=== PATIENT | male | born 1940 | race Caucasian/White ===

== ENCOUNTER → 2018-08-20 09:42 | Outpatient (CLI) | payer MEDICARE, SELFPAY ==
[2018-08-20 09:03] VITALS: BMI 34.4
[2018-08-20 11:55] LABS: AST(SGOT) 16 U/L (15-37); Alanine Aminotransfer ALT/SGPT 36 U/L (16-61); Albumin, Serum 3.4 g/dL (3.2-5.0); Alkaline Phosphatase 128 U/L (45-117); Bilirubin, Direct 0.15 mg/dL (0.00-0.30); Cholesterol 112 mg/dL (200); Globulin 3.5 g/dL (2.2-4.2); High Density Lipoprotein 33 mg/dL; Protein, Total 6.9 g/dL (6.4-8.2); T4 Total, Thyroxin 10.2 ug/dL (4.5-12.1); Thyroid Stim Hormone (TSH) 1.88 uIU/mL (0.358-3.74); Triglycerides 68 mg/dL; Very Low Density Lipoprotein 14 mg/dL (5-40)
== END ==
PROVIDERS: Family Provider Family Medicine; PCP Family Medicine; Referring Provider Internal Medicine Cardiovascular Disease; Visit Provider Internal Medicine Cardiovascular Disease
DX: E78.5 Hyperlipidemia, unspecified (principal); Z79.899 Other long term (current) drug therapy
CPT/HCPCS: 36415; 80061; 80076; 84436; 84443

== ENCOUNTER → 2018-08-27 06:37 | Outpatient (CLI) | payer MEDICARE, SELFPAY ==
[2018-08-20 09:03] VITALS: BMI 34.4
--- NOTE | 2018-08-27 13:35 | PFT ---
INTRODUCTION: The patient is a 77-year-old male that presents for pulmonary function testing secondary to a diagnosis of respiratory disease. Respiratory therapy reports good patient effort. Bronchodilators were used during testing. INTERPRETATION: Forced expiration spirometry demonstrates no evidence of a large airways obstructive ventilatory defect. There was no significant response to aerosolized bronchodilators. Spirograms are of good quality and do not plateau indicating slow emptying of the lungs. Body plethysmography was performed and reveals a mildly increased RV of unclear significance. The remainder of the lung volumes are within normal limits. Diffusing capacity by single breath CO is within normal limits. IMPRESSION: Grossly normal pulmonary function testing. There are no previous PFTs available for comparison.
--- OUTSIDE RECORDS SUMMARY | 2018-10-20 04:45 | XMS RPT_ITS ---
:1940 Author Organization OHIP Care Team Providers Name Role Phone Ji Mancilla D.O. Attending Unavailable Bud Voss Referring Unavailable Bud Voss Attending Unavailable Gomez Nelson Referring Unavailable Bud Voss Attending Unavailable Gomez Nelson Referring Unavailable Bud Voss Attending Unavailable Bud Voss Referring Unavailable Gomez Nelson Primary Care Unavailable Bud Voss Attending Unavailable Bud Voss Referring Unavailable Gomez Nelson Primary Care Unavailable PROBLEMS PROBLEMS DATE TYPE CONDITION / CODE ATTENDING STATUS SOURCE 08/20/2018 Unknown Z79.899 - Other long Bud Voss Active [facility] term (current) drug Community therapy / Hospital Z79.899(ICD-10) Repository 08/20/2018 Unknown E78.5 - Bud Voss Active [facility] Hyperlipidemia, Community unspecified / Hospital E78.5(ICD-10) Repository 08/20/2018 Unknown Z87.09 - Personal Bud Voss Active [facility] history of other Community diseases of the Hospital respiratory system / Repository Z87.09(ICD-10) 08/20/2018 Unknown I25.10 - Bud Voss Active [facility] Atherosclerotic heart Community disease of [facility] coronary artery Repository without angina pectoris / I25.10(ICD-10) 08/20/2018 Unknown I48.2 - Chronic Bud Voss Active [facility] atrial fibrillation / Community I48.2(ICD-10) Hospital Repository PROCEDURES PROCEDURES No Procedure Records FoundRESULTS RESULTS PULMONARY FUNCTION Observed: 08/27/2018 Status: F Source: ENCINO TEST 1:37 PM [facility] REPOSITORY [facility] Pulmonary Services/Neurology [address] [place] [address] MR#: [id number] Acct: [id number] Name: TALI SINGH Rep #: [id number] : 1940 77 From: Ji Mancilla DO Referring Dr: Bud Voss MD Status: REG CLI Ordering Dr: Date: Location: [facility] Sex: M C INTRODUCTION: The patient is a 77-year-old male that presents for pulmonary function testing secondary to a diagnosis of respiratory disease. Respiratory therapy reports good patient effort. Bronchodilators were used during testing. INTERPRETATION: Forced expiration spirometry demonstrates no evidence of a large airways obstructive ventilatory defect. There was no significant response to aerosolized bronchodilators. Spirograms are of good quality and do not plateau indicating slow emptying of the lungs. Body plethysmography was performed and reveals a mildly increased RV of unclear significance. The remainder of the lung volumes are within normal limits. Diffusing capacity by single breath CO is within normal limits. IMPRESSION: Grossly normal pulmonary function testing. There are no previous PFTs available for comparison. 08/27/181336 <Electronically signed by Ji Mancilla DO> Date Ji Mancilla DO CC: Bud Voss MD; Gomez Nelson DO Date Dictated: 08/27/181334 Date Transcribed: 12/03/18 1335 Boot Turner: CLAUDIA Signed LIVER PROFILE Collected: 08/20/2018 Status: F Source: ENCINO 9:47 AM [facility] REPOSITORY TYPE CODE TESTS RESULT OUT OF RANGE REFERENCE UNITS LAB L501.1500 6.4-8.2 g/dL Normal T PROT 6.9 LAB L501.1800 3.2-5.0 g/dL Normal ALB 3.4 LAB L501.1950 2.2-4.2 g/dL Normal GLOB 3.5 LAB L501.4100 15-37 U/L Normal AST 16 LAB L501.4305 45-117 U/L High ALK P 128 LAB L501.4405 16-61 U/L Normal ALT 36 LAB L501.4600 0.20-1.00 mg/dL Normal T BILI 0.50 LAB L501.4700 0.00-0.30 mg/dL Normal D BILI 0.15 Performed By: #### L500.3400, L500.4100, L501.9310, L501.9520 #### [facility] [address] [place], [address] LIPID PROFILE Collected: 08/20/2018 Status: F Source: ENCINO 9:47 AM [facility] REPOSITORY TYPE CODE TESTS RESULT OUT OF RANGE REFERENCE UNITS LAB L501.4900 200 mg/dL Normal CHOL 112 Result Comment: <200 mg/dL Desirable 200-240 mg/dL Borderline >240 mg/dL High Risk LAB L501.5000 mg/dL Normal TRIG 68 Result Comment: The drugs N-Acetylcysteine and Metamizole may falsely depress this assay. Serum Triglycerides Reference Interval Normal <150 mg/dL Borderline high 150 - 199 mg/dL High 200 - 499 mg/dL Very High > or = 500 mg/dL LAB L501.6400 mg/dL Low HDL 33 Result Comment: The drugs N-Acetylcysteine and Metamizole may falsely depress this assay. Reference Range HDL <40 mg/dL Low HDL Cholesterol HDL >or= 60 mg/dL High HDL Cholesterol LAB L501.6500 0-130 mg/dL Normal LDL 65 LAB L501.6600 5-40 mg/dL Normal VLDL 14 Performed By: #### L500.3400, L500.4100, L501.9310, L501.9520 #### [facility] [address] [place], [address] T4 TOTAL, THYROXIN Collected: 08/20/2018 Status: F Source: MARIA R 9:47 AM [facility] REPOSITORY TYPE CODE TESTS RESULT OUT OF RANGE REFERENCE UNITS LAB L501.9310 4.5-12.1 ug/dL T4 Normal THYROXIN 10.2 Performed By: #### L500.3400, L500.4100, L501.9310, L501.9520 #### [facility] [address] [place], [address] THYROID STIM HORMONE Collected: 08/20/2018 Status: F Source: MARIA R (TSH) 9:47 AM [facility] REPOSITORY TYPE CODE TESTS RESULT OUT OF RANGE REFERENCE UNITS LAB L501.9520 0.358-3.74 uIU/mL Normal TSH 1.88 Performed By: #### L500.3400, L500.4100, L501.9310, L501.9520 #### [facility] [address] [place], [address] CARDIOLOGY VISIT Observed: 08/20/2018 Status: F Source: AMRIA R REPORT 9:24 AM [facility] REPOSITORY [facility] [address] [place] [address] OFFICE VISIT Date of Service: 08/20/18 MR#: [id number] Acct: [id number] Name: TALI SINGH Rep #: [id number] : 1940 Provider: Bud Voss MD Age/Sex: 77/M Location: [facility] Status: Signed HPI HPI Chief Complaint: Routine f/u Details: Referring physician: Dr. Nelson Mr. 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 According to the patient had an echocardiogram at that time however do not have those results in front of us. The patient recently saw Dr. Nelson is a new patient any physical exam revealed a loud murmur precipitating an echocardiogram which was performed in March 2016. This demonstrated normal LV function with an EF of 65%, left ventricular hypertrophy, severe aortic stenosis with a peak/mean gradient of 83/52 mmHg, and TIFFANY estimated to be 0.78 cm , and an RVSP of 27 mmHg. He was then referred for evaluation. From a cardiac standpoint he reports these had a gradual decline in his exercise capacity over the last 6 months now only able to walk about 1/8 of a mile before he has to s Complains of dyspnea on exertion, shortness of breath, and exertional anginal symptoms. He has had no palpitations, lightheadedness, dizziness, presyncope or syncope He reports that he has been compliant with his medications and had a 30 pound weight loss when he was diagnosed with prediabetes. Patient underwent successful single-vessel bypass surgery with a saphenous vein graft to the PDA as well as a bioprosthetic aortic valve replacement with a #25 mm Saeed Solo pericardial tissue valve by Dr. Baxter on 07/21/16. Patient was then sent home and returned 5 days later with severe bilateral pleural effusions and shortness of breath. He then underwent bilateral thoracentesis and stayed an additional [address] [facility]. Since his discharge, he's been doing fairly well. He had a repeat echocardiogram on 08/25/16 which showed an EF of 60-65%, mild to moderate concentric LVH, moderate biatrial enlargement, small hemodynamically insignificant pericardial effusion and a normal functioning by prostatic aortic valve. Patient is now here in follow-up. He was found to be in atrial fibrillation with controlled ventricular response and has been treated with amiodarone and beta blockers. Patient underwent successful DC cardioversion on 10/27/16. This was with amiodarone assistance. Patient is not participating cardiac rehab due to cost and feeling that he does not require it. Patient stopped his xarelto due to cost issues, and recently had episodes of vertigo-like symptoms. He denies any anginal symptoms. He reports the shortness of breath this markedly improved since her last visit. He denies any orthopnea or PND. Patient does exercise by doing a lot a walking at work, and cuts his grass without difficulty. Patient had moved away temporarily but now is back in town, and wishes to reestablish care. He denies any chest pain, angina, shortness of breath or dyspnea on exertion. He denies any palpitations, or reversion to atrial fibrillation. He denies any presyncope or syncope, fevers or chills. In our office today his blood pressure is 130/60 with a pulse is 72 and irregular.He has no edema. Lipids as of 03/17/16 showed LDL 107 and HDL of 50. Lipids as of 09/30/16 showed LDL of 91 and HDL of 47. Repeat EKG today shows normal sinus rhythm, first-degree AV block, QT corrected of 403 ms. Repeat lipids, thyroid studies, and PFTs are pending Intake Vital Signs08/20/18 Height 5 ft 8 in 08/20/18 Weight: 227 lb 08/20/18 Body Mass Index (BMI) 34.4 08/20/18 Blood Pressure 130/60 H H Intake Visit Reasons: F/U, LAST SAW 04/2017 Allergies No Known Allergies Allergy (Verified 08/14/18 18:07) Medications Aspirin [Aspirin, Baby] 81 mg PO DAILY@0800 08/01/16 [History Confirmed 08/20/18] Rivaroxaban [Xarelto] 20 mg PO DAILY 11/15/16 [History Confirmed 08/20/18] Tamsulosin HCl [Flomax] 0.4 mg PO DAILY 11/15/16 [History Confirmed 08/20/18] furosemide 40 mg tablet 40 mg PO DAILY #90 tab 10/04/17 [Rx Confirmed 08/20/18] metoprolol tartrate 50 mg tablet 50 mg PO BID #180 tab 10/04/17 [Rx Confirmed 08/20/18] atorvastatin 80 mg tablet 80 mg PO QDAY #90 tab 11/13/17 [Rx Confirmed 08/20/18] amiodarone 200 mg tablet 200 mg PO DAILY tab 08/14/18 [History Confirmed 08/20/18] amoxicillin 500 mg tablet 500 mg PO .COMPLEX 08/14/18 [History Confirmed 08/20/18] levothyroxine 150 mcg tablet 150 mcg PO DAILY 08/14/18 [History Confirmed 08/20/18] linagliptin 5 mg tablet 5 mg PO DAILY 08/14/18 [History Confirmed 08/20/18] [facility] Medical History History of pleural effusion (Chronic) Atrial fibrillation, chronic (Chronic) Diabetes mellitus, type II (Chronic) Chronic kidney disease, stage 3 (Chronic) Hyperlipidemia (Chronic) Hypertension (Chronic) Nonrheumatic mitral valve regurgitation (Chronic) 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) History of aortic stenosis (Chronic) Surgical History History of thoracentesis (Chronic 08/02/16) History of right and left heart catheterization (LHC) (Chronic 05/18/16) History of cardioversion (Chronic 11/16/16) History of mitral valve repair (Chronic 07/14/16) 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) History of aortic valve replacement with bioprosthetic valve (Chronic 07/14/16) History of neck surgery (Chronic) Family History Brother Colon cancer Social History Smoking Status: Never smoker ROS Const Const: Positive for other (Feels well); negative for fatigue, weakness, body ache, fever(s), headache(s), chills, frequent falls, night sweats, daytime sleepiness, difficulty sleeping, excessive sweating, weight gain, weight loss, increased appetite, poor appetite or anorexia Eyes Eyes: Negative for blind spots, loss of peripheral vision, transient loss of vision, blurry vision, change in vision, double vision, floaters, tunnel vision or other ENT ENT: Negative for headache(s), dizziness, hearing loss, tinnitus, Nosebleed/epistaxis, balance problems, post nasal drip, lip swelling, tongue swelling, bleeding gums, hoarseness, neck pain, dry mouth or other Cardio Chest Pain: No Palpitations: No Edema: Right (Mild pitting) Muscle aches with walking: None Resp Respiratory: Negative for SOB with activity, SOB at rest, SOB orthopnea\SOB lying down, Cough, Coughing up blood/hemoptysis, chest congestion, pain on inspiration, snoring, stridor, wheezing, crackles, paroxysmal nocturnal dyspnea or other GI GI: Negative nausea, vomiting, heartburn, constipation, belching, bloating, cramping, vomiting blood/hematemesis, bright, red blood in stools, black,tarry stools, loose stools, Difficulty Swallowing or other : Negative for hematuria, frequent nighttime urination/ nocturia, erectile dysfunction or abnormal vaginal bleeding Musc Musc: Negative for balance problems, muscle aches/ myalgia, muscle weakness or joint pain Skin Skin: Negative redness, non-healing lesions, rash, unusual bruising, skin ulcer, wounds, jaundice or other Neuro Neuro: Negative for weakness, headache(s), frequent falls, blurry vision, double vision, dizziness, lightheadedness, near syncope, syncope, orthostatic symptoms, confusion, memory loss, restless legs, vertigo, seizures, lack of coordination or other Josue Hematologic/Lymphatic: Negative for easy bleeding, easy bruising, enlarged lymph nodes or other Endo Endo: Negative for fatigue, excessive sweating, cold intolerance, heat intolerance, flushing, increased thirst/drinking, increased hunger, hair loss, hair growth or other Psych Psych: Negative for anxiety, depression, thoughts of harming anyone, thoughts of harming yourself, visual hallucinations, panic attacks or audible hallucinations Allergy Allergy/Immunology: Negative for lip swelling, Negative for tongue swelling, Negative for rash, Negative for throat swelling, Negative for hives Cardiology Exam Const Appearance: cooperative, healthy appearing and no acute distress Nutritional Appearance: well nourished Orientation: alert, oriented x3 and oriented to person Head Head: normal to inspection, atraumatic and normocephalic Nose: external nose normal Face and Sinus: face symmetric Mouth: oral mucosae normal Eyes General: appearance normal, both eyes and all related structures Eyelids: eyelids normal Conjunctivae: conjunctivae normal Pupils: PERRL and normal by confrontation EOM: EOM intact bilaterally Neck Neck: normal visual inspection and full ROM Carotids: normal carotid upstroke Chest Chest inspection: normal inspection of the chest Auscultation: Bilateral: Clear to Auscultation Cardio Palpation: normal PMI Rate: regular rate Rhythm: regular rhythm Heart sounds: S1 normal and S2 normal GI GI: normal to inspection, no hepatosplenomegaly and bowel sounds present Neuro General: alert, oriented x3, awake, CN's II-XI intact bilaterally and moves all extremities Skin Skin: no rashes or lesions noted Extremities Pulses: Normal: Right Femoral Pulse, Left Femoral Pulse, Right Dorsalis Pedis Pulse, Left Dorsalis Pedis Pulse, Right Posterior Tibial Pulse, Left Posterior Tibial Pulse, Right Radial Pulse, Left Radial Pulse Lower Extremity Edema: None: Bilateral Psych Psychological: normal affect Assessment AND Plan 1. Atherosclerotic heart disease of cheesh-na coronary artery without angina pectoris I25.10 CABG X 1 with reverse SVG to PDA per Dr. Mcarthur @ [place], concurrently with AVR procedure Plan 1. Coronary artery disease: No exertional anginal symptoms at this time. No indication for any additional testing. His repeat echocardiogram post aVR showed a well-functioning AVR area and he has had no symptoms whatsoever since her last visit. His blood pressure and heart rate are well-controlled. I recommend the patient continue his baby aspirin, Lasix, metoprolol. 2. Hyperlipidemia E78.5 Plan 2. Hyperlipidemia: His most recent lipid profile was under fairly good control however his LDL was 91. Patient continues on his Lipitor. We will repeat his lipid profile. My preference would be for his LDL to be less than 70 or at least 50% reduced over its baseline. Orders Orders: 3. Atrial fibrillation, chronic I48.2 Plan 3. Atrial fibrillation: The patient underwent successful amiodarone assisted DC cardioversion in 2017 and has remained on amiodarone and Xarelto since that time. He denies any palpitations. EKG today demonstrates normal sinus rhythm with appropriate QT corrected interval for his amiodarone. Recommend he continue his amiodarone, Xarelto, and that we repeat his thyroid function studies. In addition he will undergo liver function studies and pulmonary function test as a baseline. If his DLCO is markedly reduced, we will discontinue his amiodarone and continue beta-ap therapy along with Xarelto. 4. Return office in 6 months. This note was generated using a voice recognition system and there may be incorrect words, spelling or punctuation that were not noted when reviewing the office note prior to saving. Plan Detail Other Orders Orders: Follow Up +6M (Bipin) Coding Level of Care Code Off vis,est,level 3 Diagnoses Atherosclerotic heart disease of cheesh-na coronary artery without angina pectoris I25.10 Hyperlipidemia E78.5 Atrial fibrillation, chronic I48.2 Coding Level of Care Code Off vis,est,level 3 Diagnoses Atherosclerotic heart disease of cheesh-na coronary artery without angina pectoris I25.10 Hyperlipidemia E78.5 Atrial fibrillation, chronic I48.2 08/20/18 0924 <Electronically signed by Bud Voss MD> Date Bud Ma Signature: Date (if applicable) CC: Gomez Nelson DO 12 LEAD EKG PERFORMED Observed: 08/20/2018 Status: F Source: MARIA R BY [facility] 8:59 AM [facility] REPOSITORY [facility] [address] [place] [address] 12 Lead EKG performed by [facility] 08/20/18857 MR#: [id number] Acct: [id number] Name: TALI SINGH Rep #: [id number] : 1940 77 From: Bud Voss MD Attending Dr: Bud Voss MD Status: DEP AMB Ordering Dr: Bud Voss MD Date: 08/20/18 Location: [facility] [place] Sex: M C Admitted: [facility]/12 Lead EKG performed by [facility] ECG Report Interpretation Sinus Rhythm -First degree A-V block Mimi = 262BORDERLINE RHYTHMElectronically signed on 09/07/2018 at 15:26 by Bud Voss Software Version [id number] 09/07/18 1531 Date Bud Voss MD CC: Gomez Nelson DO Date Dictated: 08/20/18857 Date Transcribed: 08/20/18857 Boot Turner: Signed ALLERGIES ALLERGIES DATE TYPE / CODE NAME / CODE REACTION SEVERITY SOURCE 08/14/2018 [address] No Known [address] [facility] Allergy/4160 Allergies/F00 Hospital 01097(SNOMED 7733123(RXNOR Repository CT) M) ENCOUNTERS ENCOUNTERS ADMIT/DISCHARGE ACCOUNT ADMITTING ENCOUNTER LOCATION SOURCE NUMBER CLASS 08/27/2018 [id number] Ambulatory BMSBuilding:[facility] [place] [facility] Repository 08/27/2018 [id number] Ambulatory [place] [facility] ing:PSN Repository 08/20/2018 [id number] Ambulatory [facility] [place] 9 [facility] ing:LAB Repository 08/20/2018/ [id number] Ambulatory BMSBuilding:[facility] [place] [facility] [address] [facility] Repository 11/20/2017 [id number] Ambulatory BMSBuilding:B [facility] [address] [facility] Repository PAYERS PAYERS ENCOUNTER GUARANTOR PAYER SUBSCRIBER SOURCE 08/27/2018 TALI Sandoval Primary TALI [id number] Insurance:LANCE JOHNSONDOB: [facility] [id number] Number: Repository [id number]: 330 [id number] [phone] () e Date:8271-12-05FT [address] [address]RF: 08/27/2018 Secondary NOT GIVENUNK [place] Insurance:SELF PAY [facility] Number: Effective Repository Date:2018-08-27 08/27/2018 TALI Sandoval Primary TALI SINGH486 Insurance:LANCE JOHNSONDOB: [facility] [id number] Health Number: Repository [id number]: 330 [id number] [phone] () e Date:7629-28-17EN [address] [address]MJ: 08/27/2018 Secondary NOT GIVENUNK Maria R Insurance:SELF PAY [facility] Number: Effective Repository Date:2018-08-20 08/20/2018 TALI Sandoval Primary TALI SINGH486 Insurance:LANCE JOHNSONDOB: [facility] [id number] Shore Health Number: Repository [id number]: 330 [id number] [phone] () e Date:4920-28-70[address] [address]FS: 08/20/2018 Secondary NOT GIVENUNK [place] Insurance:SELF PAY [facility] Number: Effective Repository Date:2018-08-20 08/20/2018 TALI Sandoval Primary TALI SINGH486 Insurance:LANCE SAMANTHADOB: [facility] [id number] Shore Health Number: Repository [id number]: ([phone] [id number] [phone] () e Date:9582-60-65HQ [facility] [place] [address]LM: 08/20/2018 Secondary NOT GIVENUNK [place] Insurance:SELF PAY [facility] Number: Effective Repository Date:2018-08-20 11/20/2017 Tali Sandoval Primary Tali Singh486 Insurance:LANCE JohnsonDOB: [facility] [id number] Number: Repository [id number]: 330 [id number] [phone] () e Date:0202-73-34GJ [address], [place] [address]BG: 11/20/2017 Secondary NOT GIVENUNK Maria R Insurance:SELF PAY [facility] Number: Effective Repository Date:2017-08-31
== END ==
PROVIDERS: Family Provider Family Medicine; PCP Family Medicine; Referring Provider Internal Medicine Cardiovascular Disease; Visit Provider Internal Medicine Cardiovascular Disease
DX: Z87.09 Personal history of other diseases of the respiratory system (principal); Z79.899 Other long term (current) drug therapy
CPT/HCPCS: 94060; 94726; 94729

== ENCOUNTER → 2019-03-23 09:47 | Outpatient (CLI) | payer MEDICARE, SELFPAY ==
[2018-08-20 09:03] VITALS: BMI 34.4
--- NOTE | 2019-03-23 10:05 | RAD_ITS ---
STUDY: X-RAY - LEFT KNEE REASON FOR EXAM: Male, 78 years old. Left knee pain. TECHNIQUE: 4 view(s) of the knee. COMPARISON: None. FINDINGS: Normal visualized distal femur. Normal visualized proximal tibia and fibula. Normal proximal tibiofibular articulation. There is moderate degenerative arthrosis of the medial femorotibial compartment with moderate joint space narrowing. Normal lateral femorotibial compartment. There is mild degenerative arthrosis of the patellofemoral articulation. Small joint effusion. RAD/Knee 4 or More Views IMPRESSION: Degenerative arthrosis. Small joint effusion. Electronically Signed: Fidencio Ochoa, at 10:25 EDT , Service support ,
== END ==
PROVIDERS: Family Provider Family Medicine; PCP Family Medicine; Referring Provider Family Medicine; Visit Provider Family Medicine
DX: M25.562 Pain in left knee (principal)
CPT/HCPCS: 73564

== ENCOUNTER 2021-05-11 06:52 | Day surgery (SDC) | payer MEDICARE, SELFPAY ==
[2021-04-27 14:31] VITALS: BMI 30.4
[2021-05-11] VITALS (7 sets, daily range): BP systolic 109–127; BP diastolic 46–64; PULSE 54–77; RESP 16; TEMP 36.2–36.4; O2SAT 98–100; BMI 28.7
--- NOTE | 2021-05-11 | COLBX_PTH ---
PATIENT: KYLER SINGH LOC: EN U#:[id number] AGE/SX: 80/M ROOM: RE05/11/[address]: Dr. Emigdio Trejo MD : 1940 BED: DIS: 05/11/2021 SPEC #: [id number] RECD: 05/11/21 12:01 STATUS: CORTNEY DAVID #: [id number] AALIYAH: 05/11/21 00:[address]: Emigdio Trejo DEPT: SURGICAL PATHOLOGY RECD BY: Sharif Perez ENTERED: 05/11/21 12:05 SP TYPE: COLON BX OTHR DR: Dr. Gomez Nelson DO Tissues: A - Cecum, NOS B - COLON BIOPSY C - COLON BIOPSY D - Transverse colon E - COLON BIOPSY F - Transverse colon G - Transverse colon H - Rectum, NOS Procedures: Surgery Specimen Level IV HEADER OPERATION: Colonoscopy (MAC) PRE-OP DIAGNOSIS: Screening for intestinal cancer TISSUE SUBMITTED: A - Cecum polyp 4 mm ablated, B - Biopsy of 15 mm sessile polyp and snare, C - Biopsy of hepatic flexure polyp, D - Proximal transverse polyp, E - Hepatic flexure polyp, F - Mid transverse polyp, G - Distal transverse polyp, H - Rectum polyp MICROSCOPIC DIAGNOSIS A. Cecum polyp, biopsy: Tubular adenoma. B. 15 mm sessile polyp, biopsy and snare: Fragments of tubulovillous adenoma. See comment. C. Hepatic flexure polyp, biopsy: Fragments of colonic mucosa, no pathologic diagnosis. D. Proximal transverse colon polyp, biopsy: Fragments of tubular adenoma. See comment. E. Hepatic flexure polyp, biopsy: Tubular adenoma. F. Mid transverse colon polyp, biopsy: Fragments of tubulovillous adenoma. See comment. G. Distal transverse colon polyp, biopsy: Fragments of tubular adenoma. See comment. H. Rectum polyp, biopsy: Fragments of tubular adenoma. See comment. SJ:rg 05/12/2021 COMMENT B, D, F, G & H ? Fragments of fecal material are also noted. MICROSCOPIC DESCRIPTION Slides are reviewed. GROSS DESCRIPTION A - Received in fixative is one container labeled with the patient's name and designated cecum polyp. The specimen consists of one irregular fragment of light garza soft tissue that measures 0.1 x <0.1 x <0.1 cm. The specimen is totally submitted in one cassette. B - Received in fixative is one container labeled with the patient's name and designated sessile polyp. The specimen consists of multiple irregular fragments of light garza soft tissue that in aggregate measure 1.5 x 0.6 x 0.1 cm. The specimen is totally submitted in one cassette. C - Received in fixative is one container labeled with the patient's name and designated hepatic flexure. The specimen consists of two irregular fragments of light garza soft tissue that in aggregate measure 0.6 x 0.5 x <0.1 cm. The specimen is totally submitted in one cassette. D - Received in fixative is one container labeled with the patient's name and designated proximal transverse polyp. The specimen consists of multiple irregular fragments of light garza soft tissue that in aggregate measure 1 x 0.3 x <0.1 cm. The specimen is totally submitted in one cassette. E - Received in fixative is one container labeled with the patient's name and designated hepatic flexure polyp. The specimen consists of one irregular fragment of light garza soft tissue that measures 0.2 x 0.2 x 0.1 cm. The specimen is totally submitted in one cassette. F - Received in fixative is one container labeled with the patient's name and designated mid transverse polyp. The specimen consists of multiple irregular fragments of light garza soft tissue that in aggregate measure 2 x 1 x 0.1 cm. The specimen is totally submitted in one cassette. G - Received in fixative is one container labeled with the patient's name and designated distal transverse polyp. The specimen consists of multiple irregular fragments of light garza soft tissue that in aggregate measure 1.5 x 0.5 x 0.1 cm. The specimen is totally submitted in one cassette. H - Received in fixative is one container labeled with the patient's name and designated rectal polyp. The specimen consists of multiple irregular fragments of light garza soft tissue that in aggregate measure 0.7 x 0.5 x 0.1 cm. The specimen is totally submitted in one cassette. / AM:rg 05/11/21 TC:1 CPT: 85235 x8
--- NOTE | 2021-05-11 07:02 | HP.PCM_ITS ---
History and Physical Date of Admission: 05/11/21 I have re-examined the patient. There are no clinical changes since date of exam.Intake Visit Reasons: C-Scope family hx cancer Chief Complaint: Routine f/u Allergies No Known Allergies Allergy (Verified 04/27/21 14:34) Medications tamsulosin 0.4 mg PO DAILY 11/15/16 [History Confirmed 08/20/18] furosemide 40 mg tablet 40 mg PO DAILY #90 tab 10/04/17 [Rx Confirmed 04/27/21] levothyroxine 150 mcg tablet 150 mcg PO DAILY 08/14/18 [History Confirmed 08/20/18] metoprolol tartrate 50 mg tablet 50 mg PO BID #180 tab 10/26/20 [Rx Confirmed 04/27/21] atorvastatin 80 mg tablet 80 mg PO QDAY #90 tab 11/19/20 [Rx Confirmed 04/27/21] aspirin 81 mg chewable tablet 81 mg PO BID tab 04/27/21 [History Confirmed 04/27/21] glipizide 10 mg tablet, extended release 24 hr 10 mg PO DAILY tab 04/27/21 [History Confirmed 04/27/21] FORMERLY [facility], 1928–1983 Medical History (Updated 04/27/21 @ 14:30 by Pamella Lucio) 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) Atrial fibrillation, chronic Chronic kidney disease, stage 3 Diabetes mellitus, type II Family history of colon cancer History of aortic stenosis History of pleural effusion Hyperlipidemia Hypertension Nonrheumatic mitral valve regurgitation Surgical History History of aortic valve replacement with bioprosthetic valve (07/14/16) History of cardioversion (11/16/16) History of mitral valve repair (07/14/16) History of neck surgery History of right and left heart catheterization (LHC) (05/18/16) History of thoracentesis (08/02/16) 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 The patient is referred by Dr. Gomez Nelson and a written copy of my surgical consult and recommendations will return to him. 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 Stage III chronic renal disease. Only anticoagulant is aspirin. The patient has a brother and a niece both with colon cancer. The patient has never had previous colon screening. He has not had COVID-19. He has been vaccinated. He has had aortic valvular replacement. Xarelto was too expensive for him. She negotiated with his service center assistant to be on aspirin 81 mg orally twice daily. The patient denies myocardial infarction or stroke. ROS General General: Yes weight change and fatigue; No appetite, colon cancer, breast cancer or weakness HEENT HEENT: No difficulty swallowing, eye injury, eye surgery, swollen glands or hoarseness Endo Endocrine: Yes diabetes mellitus; No thyroid disease, thyroid cancer, Hair loss, heat intolerance or cold intolerance Skin Skin: No rash or changing moles Musc Musculoskeletal: Yes arthritis; No back problems, rheumatoid arthritis, gout or joint pain Cardio Cardiovascular: Yes high blood pressure; No murmur, pacemaker, heart disease, atrial fibrillation, heart attack, heart stent, palpitations, shortness of breat with exertion or chest pain Psych Psychiatric: No depression, anxiety or hearing voices Resp Respiratory: No shortness of breath, No sleep apnea, No cough, No COPD, No asthma, No emphysema and No wheezing Gastro Gastrointestinal: No abdominal pain, No nausea or vomiting, Yes diarrhea, No constipation, No blood in stool, No acid reflux, No hemorrhoids, No ulcers, No gallbladder problem and No black,tarry stools Josue Hematologic: Yes blood thinners, No blood disorders, No bleeding, No anemia and No blood clots Neuro Neurologic: No weakness Exam Const General: cooperative, comfortable and no acute distress Nutritional Appearance: overweight Orientation: alert and awake HENMT Head: normal to inspection Chest Other: Increased anterior posterior diameter Resp Effort & Inspection: normal respiratory effort Auscultation: clear to auscultation bilaterally Cardio Rate: regular rate Rhythm: regular rhythm Other: Soft 1/6 systolic ejection murmur GI Inspection: normal to inspection Palpation: soft Auscultation: normal bowel sounds Musc Cervical Spine: normal cervical lordosis Neuro General: patient alert and patient awake Extrem General: no calf tenderness Psych Thought Content: normal Assessment and Plan Assessment and Plan (1) Screening for intestinal cancer: Status: Acute Plan - Dr. Emigdio Trejo MD: I recommend the patient screening colonoscopy with possible biopsy or polypectomy as indicated. He is aware of the technique, benefit, risk, alternatives. She has had an opportunity to ask and have questions answered. We will schedule procedure at his discretion. Copy: Dr. Gomez Trejo M.D., F.A.C.S.
[2021-05-11] MEDS: Lactated Ringers 1,000 ML 100 ML IV (07:27)
[2021-05-11] MEDS: Glucagon 1 MG/ML Syringe (08:35)
--- NOTE | 2021-05-11 08:52 | OP.COLON_ITS ---
Patient Name: Luis Darling Procedure Date: 05/11/2021 8:00 AM Date of : 1940 Age: 80 Procedure: Colonoscopy Indications: Screening for colorectal malignant neoplasm Providers: Emigdio Trejo MD Medicines: General Anesthesia Patient Profile: Last Colonoscopy: none. The patient's first colonoscopy is today. Complications: No immediate complications. Procedure: Pre-Anesthesia Assessment: - Prior to the procedure, a History and Physical was performed, and patient medications and allergies were reviewed. The patient's tolerance of previous anesthesia was also reviewed. The risks and benefits of the procedure and the sedation options and risks were discussed with the patient. All questions were answered, and informed consent was obtained. Prior Anticoagulants: The patient has taken aspirin, last dose was day of procedure. ASA Grade Assessment: II - A patient with mild systemic disease. After reviewing the risks and benefits, the patient was deemed in satisfactory condition to undergo the procedure. After I obtained informed consent, the scope was passed under direct vision. Throughout the procedure, the patient's blood pressure, pulse, and oxygen saturations were monitored continuously. The pediatric colonoscope was introduced through the anus and advanced to the cecum, identified by appendiceal orifice and ileocecal valve. The colonoscopy was performed with moderate difficulty. The patient tolerated the procedure well. The quality of the bowel preparation was adequate to identify polyps. The ileocecal valve and the appendiceal orifice were photographed. Scope In: 8:06:43 AM Scope Withdrawal Time 0 hours 30 minutes 58 seconds Scope Out: 8:42:42 AM Total Procedure Duration Time 0 hours 35 minutes 59 seconds Findings: The digital rectal exam findings include non-thrombosed internal hemorrhoids, internal hemorrhoids that prolapse with straining, but spontaneously regress to the resting position (Grade II) and enlarged prostate. A 4 mm polyp was found in the cecum. The polyp was sessile. The polyp was removed with a hot snare. Resection and retrieval were complete. A 12 mm polyp was found in the cecum. The polyp was sessile. The polyp was removed with a cold biopsy forceps. Resection and retrieval were complete. A 5 mm polyp was found in the hepatic flexure. The polyp was sessile. The polyp was removed with a cold biopsy forceps. Resection and retrieval were complete. A 7 mm polyp was found in the proximal transverse colon. The polyp was sessile. The polyp was removed with a hot snare. Resection and retrieval were complete. A 9 mm polyp was found in the hepatic flexure. The polyp was sessile. The polyp was removed with a hot snare. Resection and retrieval were complete. To prevent bleeding post-intervention, one hemostatic clip was successfully placed. There was no bleeding at the end of the procedure. A 8 mm polyp was found in the mid transverse colon. The polyp was sessile. The polyp was removed with a hot snare. Resection and retrieval were complete. A 7 mm polyp was found in the distal transverse colon. The polyp was sessile. The polyp was removed with a hot snare. Resection and retrieval were complete. A 7 mm polyp was found in the rectum. The polyp was sessile. The polyp was removed with a hot snare. Resection and retrieval were complete. Multiple diverticula were found in the sigmoid colon and descending colon. Impression: - Non-thrombosed internal hemorrhoids, internal hemorrhoids that prolapse with straining, but spontaneously regress to the resting position (Grade II) and enlarged prostate found on digital rectal exam. - One 4 mm polyp in the cecum, removed with a hot snare. Resected and retrieved. - One 12 mm polyp in the cecum, removed with a cold biopsy forceps. Resected and retrieved. - One 5 mm polyp at the hepatic flexure, removed with a cold biopsy forceps. Resected and retrieved. - One 7 mm polyp in the proximal transverse colon, removed with a hot snare. Resected and retrieved. - One 9 mm polyp at the hepatic flexure, removed with a hot snare. Resected and retrieved. Clip was placed. - One 8 mm polyp in the mid transverse colon, removed with a hot snare. Resected and retrieved. - One 7 mm polyp in the distal transverse colon, removed with a hot snare. Resected and retrieved. - One 7 mm polyp in the rectum, removed with a hot snare. Resected and retrieved. - Diverticulosis in the sigmoid colon and in the descending colon. Recommendation: - Discharge patient to home. - Resume previous diet. - Continue present medications. - Repeat colonoscopy in 1 year for surveillance. - Telephone my office for pathology results in 1 week. Procedure Code(s): --- Professional --- 82163, Colonoscopy, flexible; with removal of tumor(s), polyp(s), or other lesion(s) by snare technique 73247, 59, Colonoscopy, flexible; with biopsy, single or multiple Diagnosis Code(s): --- Professional --- Z12.11, Encounter for screening for malignant neoplasm of colon D12.0, Benign neoplasm of cecum D12.3, Benign neoplasm of transverse colon (hepatic flexure or splenic flexure) K62.1, Rectal polyp K64.1, Second degree hemorrhoids N40.0, Benign prostatic hyperplasia without lower urinary tract symptoms K57.30, Diverticulosis of large intestine without perforation or abscess without bleeding CPT copyright 2017 [employer]. All rights reserved. The codes documented in this report are preliminary and upon warp knit operator review may be revised to meet current compliance requirements. Emigdio Trejo MD 05/11/2021 8:51:41 AM This report has been signed electronically. Number of Addenda: 0 Note Initiated On: 05/11/2021 8:00 AM
--- NOTE | 2021-05-11 08:52 | OP.CCLET_ITS ---
05/11/2021 Gomez Nelson [address] [facility] [place] [address] Re : Colonoscopy procedure for Luis Darling Dear Dr. Nelson This procedure was performed on Tuesday, May 11, 2021. My impressions and recommendations are as follows: Impressions : - Non-thrombosed internal hemorrhoids, internal hemorrhoids that prolapse with straining, but spontaneously regress to the resting position (Grade II) and enlarged prostate found on digital rectal exam. - One 4 mm polyp in the cecum, removed with a hot snare. Resected and retrieved. - One 12 mm polyp in the cecum, removed with a cold biopsy forceps. Resected and retrieved. - One 5 mm polyp at the hepatic flexure, removed with a cold biopsy forceps. Resected and retrieved. - One 7 mm polyp in the proximal transverse colon, removed with a hot snare. Resected and retrieved. - One 9 mm polyp at the hepatic flexure, removed with a hot snare. Resected and retrieved. Clip was placed. - One 8 mm polyp in the mid transverse colon, removed with a hot snare. Resected and retrieved. - One 7 mm polyp in the distal transverse colon, removed with a hot snare. Resected and retrieved. - One 7 mm polyp in the rectum, removed with a hot snare. Resected and retrieved. - Diverticulosis in the sigmoid colon and in the descending colon. Recommendations : - Discharge patient to home. - Resume previous diet. - Continue present medications. - Repeat colonoscopy in 1 year for surveillance. - Telephone my office for pathology results in 1 week. My findings are described in the full procedure note, which is enclosed. If I can be of further assistance, please feel free to contact me at Doctor phone number(s): Work: . Sincerely, Emigdio Trejo MD 05/11/2021 8:51:41 AM This report has been signed electronically.
[2021-05-11 10:36] LABS: Bedside Glucose 113 mg/dL (70-110)
== END 2021-05-11 09:38 ==
LOC: EN 06:56 → AC 06:56
PROVIDERS: PCP Family Medicine; Referring Provider Family Medicine; Visit Provider Surgery
PROC: 0DJD8ZZ Inspection of Lower Intestinal Tract, Via Natural or Artificial Opening Endoscopic (ICD-10-PCS; CPT 45378; principal; 2021-05-11 08:10)
DX: Z12.11 Encounter for screening for malignant neoplasm of colon (principal); K62.1 Rectal polyp; D12.0 Benign neoplasm of cecum; D12.4 Benign neoplasm of descending colon; D12.3 Benign neoplasm of transverse colon; K57.30 Diverticulosis of large intestine without perforation or abscess without bleeding; N40.0 Benign prostatic hyperplasia without lower urinary tract symptoms; K64.1 Second degree hemorrhoids; N18.30 Chronic kidney disease, stage 3 unspecified; E11.22 Type 2 diabetes mellitus with diabetic chronic kidney disease; I25.10 Atherosclerotic heart disease of native coronary artery without angina pectoris; I48.20 Chronic atrial fibrillation, unspecified; E78.5 Hyperlipidemia, unspecified; I10 Essential (primary) hypertension; Z79.84 Long term (current) use of oral hypoglycemic drugs; Z79.82 Long term (current) use of aspirin; Z79.899 Other long term (current) drug therapy; Z80.0 Family history of malignant neoplasm of digestive organs; Z95.2 Presence of prosthetic heart valve
CPT/HCPCS: 45380; 45385; 82962; 88305; J7120; J1610; J2405

== ENCOUNTER 2022-06-08 11:41 | Emergency (ER) | payer MEDICARE, SELFPAY ==
[2022-06-08 11:43] VITALS: BP 116/46; PULSE 71; RESP 14; TEMP 36.3; O2SAT 98; BMI 29.2
--- NOTE | 2022-06-08 11:58 | CT_ITS ---
STUDY: CT ABDOMEN AND PELVIS WITHOUT CONTRAST REASON FOR EXAM: Male, 81 years old. 4 day history of left flank pain. RADIATION DOSAGE (If Supplied By Facility): CTDIvol = ( 14.53 ) mGy, DLP = ( 762.17 ) mGycm TECHNIQUE: Transaxial images were obtained from the dome of the diaphragm to the symphysis pubis without oral contrast, and without intravenous contrast. Sagittal and coronal images were reconstructed. Individualized dose optimization techniques were used for this CT. COMPARISON: None. FINDINGS: Pleural parenchymal changes at both lung bases more prominent on the right side. Bilateral calcified pleural plaques. This may be related to prior occupational exposure. Coronary artery calcification. Calcification of the mitral valve annulus. Prior CABG. Normal liver. Small gallstones are seen along the dependent portion of the gallbladder lumen. Normal spleen. Normal pancreas. Normal bilateral adrenal glands. Normal right kidney. Normal left kidney. Nonspecific bilateral perinephric stranding. There is a small hiatal hernia. Normal small intestine. There are multiple colonic diverticula consistent with diverticulosis. The appendix is visualized and appears normal. There is diffuse atherosclerotic calcification of the abdominal aorta and its major visceral branches, without a demonstrated aneurysm. Normal inferior vena cava. There is borderline retroperitoneal lymphadenopathy with enlarged nodes no greater than 10mm in the short axis diameter. The bladder is empty at the time of the examination. There is however diffuse bladder wall thickening. The prostate measures 4.5 cm x 6 cm. Central prostatic calcifications are seen. Normal abdominal wall. There are diffuse degenerative changes of the visualized lumbar spine. Several lucencies are seen in the posterior aspect of the L3 vertebrae. Lucencies are also seen in the region of the left sacrum. CT/Abdomen/Pelvis without Cont IMPRESSION: Multiple small gallstones. Bilateral pleural-parenchymal changes at the lung bases slightly worse on the right side with calcified pleural plaques. Occupational exposure should be ruled out. Diffuse bladder wall thickening with prostatic calcifications. Lucency seen along the posterolateral aspect of the L4 vertebra as well as the left side of the sacrum. Electronically Signed: Fidencio Ochoa MD at 13:03 EDT ,
--- NOTE | 2022-06-08 11:58 | EDS_ITS ---
HPI HPI - GI History of Present Illness Chief Complaint: Flank Pain Narrative Narrative: Patient presents with left flank pain for the last 3 to 4 days. He states his symptoms began on Monday and describes his pain in his left flank as both sharp and stabbing and at times dull and achy. He denies any dysuria or hematuria. No fevers or chills. No nausea or vomiting. He states he has had decreased appetite and has not felt well for the last few days. He denies any prior abdominal surgeries. Last bowel movement was Monday, before his symptoms started but he admits that he has not eaten much. He denies any diarrhea. Pain is mainly in the right flank. He states it is deep inside and not palpable. No true exacerbating or alleviating factors. 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) Atrial fibrillation, chronic Back pain Cardiology follow-up encounter Chronic kidney disease, stage 3 Diabetes mellitus, type II Dietary restriction Family history of colon cancer High cholesterol History of aortic stenosis History of echocardiogram History of pain when walking History of pleural effusion Hyperlipidemia Hypertension Loss of hearing Non-smoker Nonrheumatic mitral valve regurgitation Prostate disease Thyroid disease Wears dentures Home Medications tamsulosin 0.4 mg capsule 0.4 mg PO DAILY 11/15/16 [History Last Taken Unknown] furosemide 40 mg tablet 40 mg PO DAILY #90 tabs 10/04/17 [Rx Last Taken Unknown] levothyroxine 150 mcg tablet 150 mcg PO DAILY 08/14/18 [History Last Taken 05/11/21 05:30] aspirin 81 mg chewable tablet 81 mg PO BID 04/27/21 [History Last Taken Unknown] glipizide 10 mg tablet, extended release 24 hr 10 mg PO DAILY 04/27/21 [History Last Taken Unknown] multivitamin 1 cap PO DAILY 05/10/21 [History Last Taken Unknown] metoprolol tartrate 50 mg tablet 50 mg PO BID #180 tabs 10/25/21 [Rx Last Taken Unknown] atorvastatin 80 mg tablet 80 mg PO QDAY #90 tabs 11/25/21 [Rx Last Taken Unknown] Allergy/AdvReac Type Severity Reaction Status Date / Time No Known Allergies Allergy Verified 06/08/22 11:42 Family History Brother Colon cancer Surgical History History of aortic valve replacement with bioprosthetic valve (07/14/16) History of cardioversion (11/16/16) History of mitral valve repair (07/14/16) History of neck surgery History of right and left heart catheterization (LHC) (05/18/16) History of thoracentesis (08/02/16) 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 Decreased appetite. HEENT: No sore throat. No neck pain. No loss of vision. No rhinorrhea. Cardiovascular: No chest pain. No palpitations. No pedal edema. Respiratory: No cough, no shortness of breath. Abdominal: No abdominal pain. No nausea. No vomiting. Genitourinary: No dysuria. No hematuria. Left flank pain. Described as stabbing and dull and achy. Musculoskeletal: No myalgias. No arthralgias. Neurologic: No headaches. No dizziness. No lightheadedness. Skin: No rash. No change in color. Psychiatric: No depression. No anxiety. EXAM Physical Exam Narrative Exam Narrative: Afebrile. Vital signs noted. HEENT: Normocephalic. Atraumatic. PERRL, EOMI. Neck soft and supple. No point tenderness or step off. Cardiovascular: Regular rate and rhythm. No murmurs, rubs, or gallops appreciated. Respiratory: No tachypnea. Lungs clear to auscultation bilaterally. Gastrointestinal: Abdomen soft, nontender, with normoactive bowel sounds. No rebound or guarding. Neurological: Awake. Alert. Nonfocal, nonlateralizing. Skin: No rash. Normal color. No pallor. Musculoskeletal: No pedal edema. Full range of motion extremities. Const Vital Signs: 06/08/22 11:43 Temperature 97.4 F L Temperature Source Temporal Pulse Rate 71 Respiratory Rate 14 Blood Pressure 116/46 L Blood Pressure Mean 69 Pulse Ox 98 Oxygen Delivery Method Room Air MDM MDM MDM Narrative Medical decision making narrative: Patient declines analgesics right now. He was bolused normal saline 1 L intravenously. Comprehensive work-up was pursued including CBC, BMP, urinalysis, and CT flank. He has a normal CBC with a normal white count of 8.3, hemoglobin normal at 13.8, platelet count normal at 213. Electrolyte panel is grossly unremarkable except for his stage III kidney disease with a BUN of 31 and a creatinine of 1.78, close to his baseline. His urinalysis appears slightly cloudy but negative for nitrites. There are 0-5 WBCs seen and no bacteria. I do not feel that antibiotics are indicated. CT of the abdomen and pelvis shows multiple small gallstones. There is parenchymal pleural changes that appear chronic. He has an enlarged prostate with calcifications. He does take tamoxifen for this. He was referred to urology. He does have bilateral nonspecific perinephric stranding but no evidence of hydronephrosis. His bladder is collapsed and appears with thickened rodriges. There are lucencies near the vertebrae of L3 and L4 which I think are also nonspecific. At this point in time, I am unsure of the cause of his left flank pain. He does have diverticulosis without evidence of acute diverticulitis. At this point in time, I feel he can be discharged safely home with follow-up. He will start with his primary care physician and may need referral to a resource conservation manager for his stage III kidney disease, and to urology given his enlarged prostate with calcifications. Patient and are agreeable to the plan. Return instructions were reviewed. Disposition is discharged home in stable condition. Lab Data Attestation: I reviewed the patient's lab results. Labs: Laboratory Results - last 24 hr 06/08/22 06/08/22 06/08/22 12:17 12:17 13:47 WBC 8.3 RBC 5.11 Hgb 13.8 Hct 42.9 MCV 84.0 MCH 27.0 MCHC 32.2 RDW Std Deviation 37.7 RDW Coeff of Ash 12.4 Plt Count 213 MPV 11.6 Immature Gran % (Auto) 0.400 Neut % (Auto) 81.3 H Lymph % (Auto) 11.4 L [place] % (Auto) 5.9 Eos % (Auto) 0.4 Baso % (Auto) 0.6 Absolute Neuts (auto) 6.8 Absolute Lymphs (auto) 0.95 Nucleated RBC % 0 Sodium 138 Potassium 4.6 Chloride 103 Carbon Dioxide 28.0 Anion Gap 7 BUN 31 H Creatinine 1.78 H Estim Creat Clear Calc 32.55 Est GFR (MDRD) Af Amer 47 L Est GFR (MDRD) Non-Af 39 L BUN/Creatinine Ratio 17.4 Glucose 238 H Calcium 9.6 Urine Color Yellow Urine Clarity Sl. Cloudy Urine pH 6.0 Ur Specific [place] 1.020 Urine Protein 30 H Urine Glucose (UA) 50 H Urine Ketones 5 H Urine Occult Blood 10 H Urine Nitrite Negative Urine Bilirubin 1 H Urine Urobilinogen 1 H Ur Leukocyte Esterase 25 H Urine RBC 0-5 SEEN Urine WBC 0-5 SEEN Ur Squamous Epith Cells 0-5 SEEN Urine Bacteria 0 SEEN Urine Mucus 0 SEEN Radiography Diagnostic Testing: Clinical Impression(s) from Imaging Studies Abdomen/Pelvis CT 06/08/22 11:58 IMPRESSION: Multiple small gallstones. Bilateral pleural-parenchymal changes at the lung bases slightly worse on the right side with calcified pleural plaques. Occupational exposure should be ruled out. Diffuse bladder wall thickening with prostatic calcifications. Lucency seen along the posterolateral aspect of the L4 vertebra as well as the left side of the sacrum. Electronically Signed: Fidencio Ochoa MD at 13:03 EDT Reading Location ID and State: [address] [place] [address] , Service support , Discharge Plan Triage Chief Complaint: Flank Pain ED Provider: Fransisco Serna Dx/Rx/DC Orders Clinical Impression: Left flank pain, Enlarged prostate, Bladder wall thickening, Stage 3 chronic kidney disease Instructions: ED Flank Pain, Uncertain Cause, ED Pain, Acute, Uncertain Cause Prescriptions: No Action levothyroxine 150 mcg tablet 150 mcg PO DAILY glipizide 10 mg tablet extended release 24hr 10 mg PO DAILY Label Comments: TAKE 1 TABLET EVERY DAY with first meal of the day aspirin 81 mg tablet,chewable 81 mg PO BID tamsulosin 0.4 MG capsule 0.4 mg PO DAILY multivitamin Capsule 1 cap PO DAILY furosemide 40 MG tablet 40 mg PO DAILY Qty: 90 3RF metoprolol tartrate 50 mg tablet 50 mg PO BID Qty: 180 3RF atorvastatin 80 mg tablet 80 mg PO QDAY Qty: 90 3RF Primary Care Provider: Gomez Nelson Referrals: Daniel White MD [Med Staff - Active Staff] - As soon as possible Gomez Nelson, DO [Primary Care Provider] - 3-5 Days Activity Restrictions/Additional Instructions: Your CT of your abdomen and pelvis today did not show any acute reason for you to be hospitalized. However, there may be things that need follow-up with a urologist. Start with your primary care physician for referrals. Disposition Disposition: Home, Self Care
[2022-06-08 12:28] LABS: Absolute Lymphocyte Count 0.95 X10^3/uL (0.83-4.51); Absolute Neutrophil Count 6.8 X10^3/uL (2.0-7.7); Basophil# 0.05 X10^3/uL; Basophil% 0.6 % (0-1); Eosinophil# 0.03 X10^3/uL; Eosinophils% 0.4 % (0-5); Hematocrit 42.9 % (40-54); Hemoglobin 13.8 g/dL (13.0-16.5); Lymphocyte # 0.95 X10^3/ul (0.83-4.51); Lymphocyte % 11.4 % (19-41); Mean Corp Hgb Conc 32.2 g/dL (32-36); Mean Platelet Vol. 11.6 fl (6.2-12.0); Monocyte# 0.49 X10^3/uL; Monocyte% 5.9 % (0-10); NRBC Flagged by Analyzer 0 % (0-5); Neutrophil # 6.78 X10^3/uL (2.7-7.7); Neutrophil % 81.3 % (47-70); Platelet Count 213 K/mm3 (150-450); RBC Distribution Width CV 12.4 % (11.6-14.6); RBC Distribution Width SD 37.7 fl (35.1-43.9); Red Blood Count 5.11 M/mm3 (4.6-6.2); White Blood Count 8.3 K/mm3 (4.4-11.0)
[2022-06-08 12:38] LABS: Anion Gap 7 (5-15); BUN 31 mg/dL (7-18); BUN/Creat Ratio 17.4 RATIO (10-20); Calcium,Total 9.6 mg/dL (8.5-10.1); Chloride 103 mmol/L (98-107); Creatinine, Serum 1.78 mg/dL (0.70-1.30); EST Glomerular Filtration Rate 39 mL/min (>60); Est Glom Filt Rate - Afr Amer 47 mL/min (>60); Estimated Creatinine Clearance 32.55 ml/min; Glucose 238 mg/dL (74-106); Potassium 4.6 mmol/L (3.5-5.1); Sodium Level 138 mmol/L (136-145)
[2022-06-08] MEDS: 0.9% Normal Saline 1,000 ML 999 ML IV (12:50)
[2022-06-08 13:52] LABS: Bacteria 0 SEEN /hpf (None Seen); Mucous, Urine 0 SEEN /hpf (<or=2+)
[2022-06-08 13:54] LABS: Color, Urine Yellow (Yellow); Glucose, Dipstick 50 mg/dl (Normal); Ketone-Dipstick 5 mg/dl (Negative); Leukocyte Esterase-Dipstick 25 /ul (Negative); Nitrite-Dipstick Negative (Negative); Occult Blood-Urine 10 /ul (Negative); Protein-Dipstick 30 mg/dl (Negative); Urine Clarity Sl. Cloudy (Clear); Urine Urobilinogen 1 mg/dl (Normal)
[2022-06-08 13:57] LABS: Urine Bilirubin Dipstick 1 mg/dL (Negative)
[2022-06-08 14:00] LABS: Red Blood Cells-Urine 0-5 SEEN /hpf (0-5); Squamous Epithelial Cells - UA 0-5 SEEN /hpf (0-5); White Blood Cells 0-5 SEEN /hpf (0-5)
[2022-06-08 15:00] VITALS: PULSE 76; RESP 17; O2SAT 95
== END 2022-06-08 15:00 | disposition home or self-care (01) ==
PROVIDERS: Emergency Provider Emergency Medicine; PCP Family Medicine; Visit Provider Emergency Medicine
DX: R10.9 Unspecified abdominal pain (principal); N18.30 Chronic kidney disease, stage 3 unspecified; N40.0 Benign prostatic hyperplasia without lower urinary tract symptoms; I25.10 Atherosclerotic heart disease of native coronary artery without angina pectoris; Z95.1 Presence of aortocoronary bypass graft
CPT/HCPCS: 74176; 80048; 81001; 85025; 99283; J7030; A4216

== ENCOUNTER → 2022-06-09 | Outpatient (CLI) | payer MEDICARE, SELFPAY ==
[2022-06-09 15:28] LABS: Hemoglobin A1c 7.9 % (3.8-5.6)
== END | disposition home or self-care (01) ==
LOC: MTLAB 13:32
PROVIDERS: PCP Family Medicine; Referring Provider Family Medicine; Visit Provider Family Medicine
DX: E11.9 Type 2 diabetes mellitus without complications (principal); R97.20 Elevated prostate specific antigen [PSA]
CPT/HCPCS: 36415; 83036; 84153

== ENCOUNTER → 2023-03-24 | Outpatient (CLI) | payer MEDICARE, SELFPAY ==
[2023-03-24 10:41] LABS: Microalbumin,Random Urine 27.6 mg/L (NO RANGE EST.); Microalbumin:Creatinine Ratio 19.9 mg/g CRE (<30 mg/g CRE)
[2023-03-24 11:19] LABS: Absolute Lymphocyte Count 0.98 X10^3/uL (0.83-4.51); Absolute Neutrophil Count 6.9 X10^3/uL (2.0-7.7); Basophil# 0.08 X10^3/uL; Basophil% 0.9 % (0-1); Eosinophil# 0.21 X10^3/uL; Eosinophils% 2.4 % (0-5); Hematocrit 33.2 % (40-54); Hemoglobin 10.5 g/dL (13.0-16.5); Lymphocyte # 0.98 X10^3/ul (0.83-4.51); Lymphocyte % 11.2 % (19-41); Mean Corp Hgb Conc 31.6 g/dL (32-36); Mean Corpuscular Hgb 27.9 pg (27.0-32.0); Mean Corpuscular Volume 88.3 fL (80-94); Mean Platelet Vol. 12.1 fl (6.2-12.0); Monocyte# 0.57 X10^3/uL; Monocyte% 6.5 % (0-10); NRBC Flagged by Analyzer 0 % (0-5); Neutrophil # 6.87 X10^3/uL (2.7-7.7); Neutrophil % 78.8 % (47-70); Platelet Count 214 K/mm3 (150-450); RBC Distribution Width CV 13.6 % (11.6-14.6); RBC Distribution Width SD 43.8 fl (35.1-43.9); Red Blood Count 3.76 M/mm3 (4.6-6.2); White Blood Count 8.7 K/mm3 (4.4-11.0)
[2023-03-24 12:02] LABS: ALB/GLOB Ratio 0.9 RATIO (0.9-2.4); AST(SGOT) 15 U/L (15-37); Alanine Aminotransfer ALT/SGPT 17 U/L (16-61); Albumin, Serum 3.1 g/dL (3.2-5.0); Alkaline Phosphatase 109 U/L (45-117); Anion Gap 6 (5-15); BUN 37 mg/dL (7-18); BUN/Creat Ratio 21.5 RATIO (10-20); Calcium,Total 8.7 mg/dL (8.5-10.1); Chloride 104 mmol/L (98-107); Cholesterol 134 mg/dL (200); Creatinine, Serum 1.72 mg/dL (0.70-1.30); EST Glomerular Filtration Rate 41 mL/min (>60); Est Glom Filt Rate - Afr Amer 49 mL/min (>60); Globulin 3.4 g/dL (2.2-4.2); Glucose 165 mg/dL (74-106); High Density Lipoprotein 46 mg/dL; Potassium 4.1 mmol/L (3.5-5.1); Protein, Total 6.5 g/dL (6.4-8.2); Sodium Level 138 mmol/L (136-145); Triglycerides 44 mg/dL; Very Low Density Lipoprotein 9 mg/dL (5-40)
[2023-03-24 12:47] LABS: Hemoglobin A1c 5.8 % (3.8-5.6)
== END | disposition home or self-care (01) ==
PROVIDERS: PCP Family Medicine; Referring Provider Family Medicine; Visit Provider Family Medicine
DX: E11.21 Type 2 diabetes mellitus with diabetic nephropathy (principal); E11.22 Type 2 diabetes mellitus with diabetic chronic kidney disease; N18.31 Chronic kidney disease, stage 3a; I25.10 Atherosclerotic heart disease of native coronary artery without angina pectoris; I12.9 Hypertensive chronic kidney disease with stage 1 through stage 4 chronic kidney disease, or unspecified chronic kidney disease; Z12.5 Encounter for screening for malignant neoplasm of prostate
CPT/HCPCS: 36415; 80053; 80061; 82043; 82570; 83036; 84153; 85025

== ENCOUNTER → 2023-03-30 | Outpatient (CLI) | payer MEDICARE, SELFPAY ==
--- NOTE | 2023-03-30 10:25 | RAD_ITS ---
STUDY: X-RAY - ESOPHAGUS (BARIUM SWALLOW) WITH FLUOROSCOPY REASON FOR EXAM: Male, 82 years old. DYSPHAGIA for solids. TECHNIQUE: 22 view(s) of the esophagus were obtained following swallowing of barium. FLUOROSCOPY TIME (if supplied): (38 seconds) minutes/seconds. 8.3 mGy COMPARISON: None. FINDINGS: There is no demonstrated esophageal foreign body. There is evidence of a long irregular segment of the narrowing in the distal esophagus extending into the gastroesophageal junction with findings suggestive of ulceration. A neoplastic process should be ruled out. The patient ingested a 12 mm tablet at bedtime. The tablet is trapped in the distal esophagus. There is atherosclerotic calcification of the aortic arch with tortuosity of the descending aorta. Normal visualized pulmonary parenchyma. There are diffuse degenerative changes of the visualized thoracic spine. RAD/Esophagus Dual Contrast IMPRESSION: Long irregular segment of narrowing in the distal esophagus extending into the gastroesophageal junction. The 12 mm tablet of barium is trapped at that level. A neoplastic process should BE ruled out. Correlation with endoscopy is recommended. Electronically Signed: Fidencio Ochoa MD at 13:11 EDT ,
== END | disposition home or self-care (01) ==
PROVIDERS: PCP Family Medicine; Referring Provider Family Medicine; Visit Provider Family Medicine
DX: R13.10 Dysphagia, unspecified (principal)
CPT/HCPCS: 74221

== ENCOUNTER → 2023-04-04 | Outpatient (CLI) | payer MEDICARE, SELFPAY ==
--- NOTE | 2023-04-04 15:53 | CT_ITS ---
EXAM: CT CHEST, ABDOMEN AND PELVIS WITH INTRAVENOUS CONTRAST CLINICAL INDICATION: weight loss 25 # IN 2 MONTHS , abnormal imaging. COMPARE TO ESOPHAGUS STUDY FROM 03/30/23. STILL HAS SOME HEAVY BARIUM IN COLON TECHNIQUE: Helically acquired images were obtained of the chest, abdomen and pelvis with intravenous contrast. This CT exam was performed using one or more of the following dose reduction techniques: automated exposure control, adjustment of the mA and/or kV according to patient size, and/or use of iterative reconstruction technique. CONTRAST: Oral and amp; IV Gastrografin and amp; 100mL Isovue-300 RADIATION DOSE: CTDIvol = 13.56 mGy, DLP = 889.91 mGy-cm COMPARISON: Previous abdominal CT 06/08/2022, barium esophagram 03/30/2023 FINDINGS: CHEST: LUNGS AND PLEURAL SPACES: There is hyperexpansion of the lungs consistent with COPD. Prominent pleural-parenchymal scarring in the posterior lateral lower right hemithorax with a small probable chronic loculated effusion. No mass. No pneumothorax. No definite inflammatory infiltrates. HEART: There has been previous CABG. Mild cardiomegaly. Heavily calcified coronary arteries. No pericardial effusion. MEDIASTINUM: Abnormal distal esophagus which shows marked wall thickening, as much as 1.8 cm thick. Marked thickening of the esophagogastric junction. Findings are consistent with findings on esophagram and most likely related to neoplasm. As on the esophagram report, endoscopy is recommended. No mediastinal or hilar adenopathy. THYROID: Unremarkable. No thyroid lesions. ABDOMEN: LIVER: Normal shape and size of liver. Ill-defined 1.6 cm low-attenuation mass in the center of the right lobe most consistent with metastatic disease. GALLBLADDER AND BILE DUCTS: Cholelithiasis. No gallbladder distention or wall edema. No intra- or extrahepatic biliary ductal dilation. PANCREAS: Unremarkable. No focal cystic or solid mass. SPLEEN: Unremarkable. Normal size without focal cystic or solid mass. ADRENALS: Unremarkable. No nodules. KIDNEYS AND URETERS: Unremarkable. Normal renal size and position. No hydronephrosis. STOMACH AND BOWEL: Exam limited by streak artifact from dense barium in the colon. Soft tissue density in the area of the cardia of the stomach consistent with neoplasm. No stomach or bowel distention. No focal inflammatory change. PELVIS: APPENDIX: No evidence of acute appendicitis. BLADDER: Bladder wall thickening. REPRODUCTIVE: Enlarged prostate. CHEST, ABDOMEN and PELVIS: INTRAPERITONEAL SPACE: Unremarkable. No ascites or other fluid collection. No free air. BONES/JOINTS: Degenerative changes throughout the skeletal structures. Lytic lesions in the bodies of L3 and S1 are probably hemangiomas but metastatic disease is not excluded. SOFT TISSUES: Unremarkable. No discrete abdominal or pelvic wall hernia. VASCULATURE: Heavily calcified abdominal aorta with no evidence for aneurysm. No aortic dissection. No obvious central pulmonary embolism although this study was not performed with the pulmonary embolism protocol. LYMPH NODES: Moderate epigastric adenopathy with largest lymph node measuring approximately 4.[address]/CT Chest, Abd, Pel w/Contrast IMPRESSION: 1. 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 As seen on the barium esophagram, findings are consistent with neoplasm and endoscopy is once again recommended. 2. Possible metastatic disease in the liver. 3. Skeletal metastatic disease not excluded. 4. Multiple other chronic findings as above. 5. Cholelithiasis. Electronically Signed: Amilcar Arechiga MD at 21:00 EDT ,
== END | disposition home or self-care (01) ==
LOC: CT 15:48
PROVIDERS: PCP Family Medicine; Referring Provider Surgery; Visit Provider Surgery
DX: R63.4 Abnormal weight loss (principal); R93.89 Abnormal findings on diagnostic imaging of other specified body structures
CPT/HCPCS: 71260; 74177; Q9967

== ENCOUNTER 2023-04-11 09:19 | Day surgery (SDC) | payer MEDICARE, SELFPAY ==
[2023-04-11 09:54] VITALS: BP 149/34; PULSE 63; RESP 18; TEMP 36.3; O2SAT 99; BMI 25.2
--- NOTE | 2023-04-11 09:54 | HP.PCM_ITS ---
History and Physical Date of Admission: 04/11/23 Visit Reasons: Dysphagia Chief Complaint: dysphagia Is patient in pain?: No Allergies No Known Allergies Allergy (Verified 04/04/23 14:28) Medications tamsulosin 0.4 mg capsule 0.4 mg PO DAILY 11/15/16 [History Confirmed 04/04/23] furosemide 40 mg tablet 40 mg PO DAILY #90 tabs 10/04/17 [Rx Confirmed 04/04/23] levothyroxine 150 mcg tablet 150 mcg PO DAILY 08/14/18 [History Confirmed 04/04/23] aspirin 81 mg chewable tablet 81 mg PO BID 04/27/21 [History Confirmed 04/04/23] multivitamin 1 cap PO DAILY 05/10/21 [History Confirmed 04/04/23] metoprolol tartrate 50 mg tablet 50 mg PO BID #180 tabs 10/24/22 [Rx Confirmed 04/04/23] atorvastatin 80 mg tablet 80 mg PO QDAY #90 tabs 11/21/22 [Rx Confirmed 04/04/23] [facility] Medical History (Updated 04/04/23 @ 15:23 by Mamta Padilla) Abnormal finding on imaging Arthritis 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/16) Atrial fibrillation, chronic Back pain Cardiology follow-up encounter Chronic kidney disease, stage 3 Diabetes mellitus, type II Dietary restriction Dysphagia Family history of colon cancer High cholesterol History of aortic stenosis History of echocardiogram History of pain when walking History of pleural effusion Hyperlipidemia Hypertension Loss of hearing Non-smoker Nonrheumatic mitral valve regurgitation Prostate disease Thyroid disease Wears dentures Weight loss Surgical History History of aortic valve replacement with bioprosthetic valve (07/14/16) History of cardioversion (11/16/16) History of mitral valve repair (07/14/16) History of neck surgery History of right and left heart catheterization (LHC) (05/18/16) History of thoracentesis (08/02/16) 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 Gomez Nelson for surgical notes consultation regarding esophageal dysphagia and written compromise surgical consult recommendations will return to him. It is of note that on May 11, 2021 I assisted this patient with a colonoscopy. That demonstrated multiple polyps totaling 8 with 2 being tubulovillous adenomas and the rest tubular adenomas. A follow-up colonoscopy was indeed recommended. On an office visit March 24, [address] Gomez Nelson the patient complained of abdominal pain worse with eating. States his food gets stuck in esophagus and that it has excess belching and hiccups. States he cannot eat solid food and is converted to drinking liquids. As of March 27, 2023 white count was 8.7 with a hemoglobin low at 10.5 and hematocrit low at 33.2 and a platelet count of 214,000. The patient had a CT of the abdomen and pelvis on June 08, 2022 because of a complaint of left flank pain when he was seen in the emergency room. Small gallstones were identified. Diffuse after carotid calcification abdominal aorta. Borderline retroperitoneal lymphadenopathy of no greater than 10 mm. Diffuse bladder wall thickening. Prostate measuring 4.5 x 6 cm with central prostatic calcifications. I have personally reviewed these images. I note significant changes in the right lung base perhaps pleural effusion certainly pleural thickening. This was not extensively discussed by radiology. The patient had a barium swallow performed on March 30, 2023. A long irregular segment of narrowing of the distal esophagus extending to the GE junction was identified with a 12 mm barium tablet becoming trapped. Neoplasm is suspected. I have personally reviewed those images. The patient states that for 3 months he has had significant trouble swallowing. He is dropped back he cannot swallow his pills nor solid foods. Basically only able to swallow liquids. He has had a 25 pound weight loss. He has had epigastric pressure discomfort ROS General General: Yes weight change and fatigue; No appetite, colon cancer, breast cancer or weakness HEENT HEENT: Yes difficulty swallowing; No eye injury, eye surgery, swollen glands or hoarseness Endo Endocrine: Yes diabetes mellitus; No thyroid disease, thyroid cancer, Hair loss, heat intolerance or cold intolerance Skin Skin: No rash or changing moles Musc Musculoskeletal: Yes arthritis; No back problems, rheumatoid arthritis, gout or joint pain Cardio Cardiovascular: Yes atrial fibrillation and high blood pressure; No murmur, pacemaker, heart disease, heart attack, heart stent, palpitations, shortness of breat with exertion or chest pain Psych Psychiatric: Yes depression and anxiety; No hearing voices Resp Respiratory: Yes shortness of breath, No sleep apnea, No cough, No COPD, No asthma, No emphysema and No wheezing Gastro Gastrointestinal: No abdominal pain, Yes nausea or vomiting, Yes diarrhea, No constipation, No blood in stool, Yes acid reflux, No hemorrhoids, No ulcers, No gallbladder problem and No black,tarry stools [place] Hematologic: Yes blood thinners, No blood disorders, No bleeding, No anemia and No blood clots Additional Details: baby asa, tumeric Neuro Neurologic: No system reviewed and no additional complaints, except as documented, No as per HPI, No abnormal gait, No abnormal hearing, No abnormal movements, No abnormal speech, No behavioral changes, No burning sensations, No confusion, No convulsions, No disequilibrium, No dizziness, No localized weakness, No frequent falls, No headache(s), No lack of coordination, No loss of vision, No memory loss, No numbness, No other visual disturbances, No radicular pain, No restless legs, No sensory deficit, No syncope, No tingling, No tremor(s), No weakness and No other Exam Const General: cooperative, comfortable and no acute distress Other: Patient appears slightly pale. He has evidence of significant weight loss with black skin. He simply appears chronically ill. [facility] Other: Peaked Eyes General: appearance normal, both eyes and all related structures Neck Neck: normal visual inspection Other: I do not detect any supraclavicular or cervical adenopathy on clinical exam Chest Other: Increased anterior posterior diameter, well-healed mini sternotomy incisions with wires easily visible Resp Effort & Inspection: normal respiratory effort Auscultation: clear to auscultation bilaterally Cardio Rate: regular rate Rhythm: regular rhythm Other: 2/6 systolic ejection murmur GI Palpation: soft Other: He holds his rectus musculature taut. Trying to palpate the liver difficulties getting increased AP diameter of the chest. Did not detect obvious liver involvement. No focal mass. Bowel sounds present unremarkable Musc Cervical Spine: normal cervical lordosis Skin General: no rashes or lesions noted Neuro General: patient alert, patient awake and patient oriented x3 Extrem General: no calf tenderness Psych Appearance: grossly normal Assessment and Plan Assessment and Plan (1) Dysphagia: Qualifiers: Dysphagia type: esophageal phase Qualified Code(s): R13.19 - Other dysphagia Plan: 82-year-old gentleman. I have been very straightforward with the patient and his . 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 I propose for them a esophagogastroduodenoscopy with percutaneous en doscopic gastrostomy tube placement if possible. I do have concerns of course that I will not be able to get past this lesion. He is aware that I do intend biopsying it. I am impressed by the his degree of weight loss and the degree of swallowing difficulty limited now only to liquids. This is not a smooth tapering that would suggest a benign stricture but rather a markedly irregular ulcerated appearing lesion that appears malignant. Initially because of his personal history of colon polyps I was going to offer him a combined esophagogastroduodenoscopy and colonoscopy however now seeing the severity of his presentation I believe we should just proceed with the upper endoscopy. The patient is very much aware that I may not be able to place the PEG tube as suggested. We will obtain chest and abdomen CT scan imaging preintervention to assess potential pitfalls in proceeding with a PEG tube. Need to assess for possible liver involvement and/or adenopathy. I appreciate the opportunity of assisting with the surgical care. Time spent with the patient 60 minutes. The patient is additionally aware that we will likely be involving hematology oncology in the future as well once we have tissue sampling. Copy: Dr. Gomez Trejo M.D., F.A.C.S. I have examined the patient and the H&P has been reviewed. There are no clinical changes since date of exam. Emigdio Trejo M.D., F.A.C.S.
[2023-04-11] MEDS: Lactated Ringers 1,000 ML 15 ML IV (09:57)
--- NOTE | 2023-04-11 10:30 | IMM_PTH ---
PATIENT: KYLER SINGH LOC: EN U#:[id number] AGE/SX: 82/M ROOM: RE04/11/[address]: Dr. Emigdio Trejo MD : 1940 BED: DIS: 04/11/2023 SPEC #: [id number] RECD: 04/12/23 12:45 STATUS: CORTNEY REQ #: [id number] AALIYAH: 04/11/23 10:[address]: Emigdio Trejo DEPT: IMMUNOHISTOCHEMISTRY RECD BY: Rohini Bosch ENTERED: 04/12/23 12:46 SP TYPE: IMMUNO OTHR DR: Dr. Gomez Nelson, DO Tissues: A - Stomach, NOS B - Stomach, NOS C - Esophagus, NOS Procedures: H Pylori (initial) MSH2 (add) MLH-1 (add) MSH6 (add) Anti-PMS2 (add) CEA (add) CHROMO (add) CK20 (add) CK5-6 (add) CK8 (add) MIX-2 (add) HEP PAR (add) HER2 LANNY (add) KI-67 (add) P53 (add) Pankeratin (add) P40 (add) CDX2 (add) PSAP (add) CK7 (initial) PHYSICIAN & [place] [id number] SPECIMEN INFORMATION: Tissue Source: A - Antrum, B - Mass of cardia, C - Distal esophagus Clinical Info: Dysphagia Specimen Number: [id number] A-C CPT code: 13333 x3, 02076 x21 METHODOLOGY: Deparaffinized sections of prefer/formalin-fixed tissue or PAP/DQ stained slides are incubated with monoclonal/polyclonal antibodies/oligonucleotide probes. Localization is made via biotin free immunoperoxidase method. Appropriate controls are performed and reacted as expected. Results on target cell population are indicated in the following table: RESULTS: ANTIBODY / CLONE RESULT Block A H Pylori (polyclonal) negative Block B Her-2neu (CB11) negative AE1-3 (AE1/AE3/PCK26) positive CK7 (OV-TL12/30) positive CK8 (17isaaJ93) positive CK20 (KS20.8) positive, occasional MIX-2 (SP21) positive CDX2 (BLJ1497J) positive Chromo (LK2H10) negative HepPar (OCh1E5) negative PSAP (PASE/4LJ) negative CK5-6 (D5 & 1684) negative P40 (BC28) positive, rare cells CEA (11-7/TF-3HB-1) positive MLH-1 (M1) positive MSH2 (25D12) positive MSH6 (44) positive PMS2 (CEO8179) positive Ki-67 (30-9) positive, 85% P53 (DO-7) positive, 20%, dim Block C CK7 (OV-TL12/30) positive CK8 (41obglT24) positive CK20 (KS20.8) positive, occasional CDX2 (DKU3544K) positive These tests were developed and their performance characteristics determined by [facility]. They may not have been cleared or approved by the U.[place]. Food and Drug Administration. The FDA has determined that such clearance or approval is not necessary. The above immunohistochemical/dualISH markers are ordered and reviewed by the Pathologist. INTERPRETATION: A. Antrum, biopsy: Negative for Helicobacter pylori organisms. B. Mass of cardia, biopsy: Invasive poorly differentiated adenocarcinoma. Result of Microsatellite Instability Study: Negative (no loss of mismatch protein; no microsatellite instability detected). C. Distal esophagus, biopsy: Invasive poorly differentiated adenocarcinoma. AM:cas 04/14/2023
--- NOTE | 2023-04-11 10:30 | EGD_PTH ---
PATIENT: KYLER SINGH LOC: EN U#:[id number] AGE/SX: 82/M ROOM: RE04/11/[address]: Dr. Emigdio Trejo MD : 1940 BED: DIS: 04/11/2023 SPEC #: [id number] RECD: 04/11/23 14:26 STATUS: CORTNEY DAVID #: [id number] AALIYAH: 04/11/23 10:[address]: Emigdio Trejo DEPT: SURGICAL PATHOLOGY RECD BY: Rohini Bosch ENTERED: 04/12/23 13:27 SP TYPE: EGD BIOPSY OTHR DR: Dr. Gomez Nelson DO Tissues: A - Gastric mucous membrane B - Stomach, NOS C - Esophagus, NOS Procedures: Special Stain Group II Mucicarmine Stain (control) Surgery Specimen Level IV Alcian Blue/PAS (control) HEADER OPERATION: EGD with PEG tube placement and biopsies PRE-OP DIAGNOSIS: Dysphagia TISSUE SUBMITTED: A - Antrum biopsy for H. pylori and path, B - Mass of cardia biopsy, C - Distal esophagus biopsy MICROSCOPIC DIAGNOSIS A. Gastric antrum, biopsy: Mild chronic inflammation. See comment. B. Gastric cardia mass, biopsy: Invasive poorly differentiated adenocarcinoma. See comment. C. Distal esophagus, biopsy: Invasive poorly differentiated adenocarcinoma with mucosal ulceration. Focal intestinal metaplasia. See comment. AM:cas 04/13/2023 COMMENT A. The results of immunohistochemistry for Helicobacter pylori will be reported separately ([id number]). B. Immunohistochemistry ([id number]) supports the above diagnosis. Mucin stain with matched control was used in the evaluation of this case. C. Alcian blue/PAS stain with matched control supports the above diagnosis. Mucin stain with matched control was used in the evaluation of this case. Immunohistochemistry ([id number]) supports the above diagnosis. Case has been reviewed in consultation with Dr. Mason who concurs with the above diagnosis. IDC:CHRISTIANNE MICROSCOPIC DESCRIPTION Slides are reviewed. GROSS DESCRIPTION A - Received in fixative is one container labeled with the patient's name and designated antrum biopsy. The specimen consists of one irregular fragment of light garza soft tissue that measures 0.4 x 0.2 x 0.1 cm. The specimen is totally submitted in one cassette. B - Received in fixative is one container labeled with the patient's name and designated mass of cardia biopsy. The specimen consists of two irregular fragments of light garza soft tissue that in aggregate measure 0.6 x 0.3 x 0.1 cm. The specimen is totally submitted in one cassette. C - Received in fixative is one container labeled with the patient's name and designated distal esophagus. The specimen consists of multiple irregular fragments of light garza soft tissue that in aggregate measure 0.8 x 0.2 x 0.1 cm. The specimen is totally submitted in one cassette. / SJ:rg 04/12/2023 TC:0 CPT: 92056 x3, 32030 x3 ADDENDUM ADDENDUM ADDENDUM ADDENDUM ADDENDUM ADDENDUM 05/01/2023 09:30 ADDENDUM 05/31/2023 09:34 ADDENDUM 05/01/2023 09:30 ADDENDUM 05/01/2023 09:30 ADDENDUM 05/01/2023 09:30 ADDENDUM 05/01/2023 09:30 PD-L1 (KEYTRUDA) IMMUNOHISTOCHEMICAL ANALYSIS FROM [facility] RESULTS: Tumor proportion score: 3-5% / Positive Please see complete report in e-chart or EMR [facility] ADVANCED SOLID TUMOR NGS REPORT FROM [facility] RESULT SUMMARY: Abnormal IMMUNOTHERAPY BIOMARKERS: Tumor Mutation [place]: Low (7.8 Mutations / MB) Microsatellite Instability: MSI Negative (1.63%) PERTINENT NEGATIVE RESULTS: The following genes are NEGATIVE for clinically relevant mutations. Mutational hotspots and surrounding exonic regions were interrogated for DNA level point mutations and indels (fusions not assayed). AKT1, APC, ARID1A, JONATHAN, BRAF, BRCA1, BRCA2, CDH1, CTNNB1, EGFR, EPCAM, ERBB2, ERBB4, FBXW7, FGFR1, FGFR2, FGFR3, GNA11, GNAQ, GNAS, HRAS, IDH1, IDH2, KDR, KIT, MEN1, MET, MLH1, MSH2, MSH6, NOTCH1, NRAS, PDGFRA, PIK3CA, PMS2, POLE, PTEN, PTPN11, RB1, RET, SMAD4, SMO, STK11, TERT, TP53, TSC1, TSC2, VHL Please see complete report in e-chart or EMR
[2023-04-11 11:40] VITALS: BP 126/49; BP 149/34; PULSE 83; RESP 17; TEMP 36.6; O2SAT 99
--- NOTE | 2023-04-11 11:40 | OP.EGD_ITS ---
Patient Name: Chiara Darling Procedure Date: 04/11/2023 10:58 AM Date of : 1940 Age: 82 Procedure: Upper GI endoscopy Indications: Dysphagia Providers: Emigdio Trejo MD Referring MD: Gomez Nelson Medicines: See the Anesthesia note for documentation of the administered medications Complications: No immediate complications. Procedure: Pre-Anesthesia Assessment: - Prior to the procedure, a History and Physical was performed, and patient medications and allergies were reviewed. The patient's tolerance of previous anesthesia was also reviewed. The risks and benefits of the procedure and the sedation options and risks were discussed with the patient. All questions were answered, and informed consent was obtained. Prior Anticoagulants: The patient has taken no previous anticoagulant or antiplatelet agents. ASA Grade Assessment: III - A patient with severe systemic disease. After reviewing the risks and benefits, the patient was deemed in satisfactory condition to undergo the procedure. After obtaining informed consent, the endoscope was passed under direct vision. Throughout the procedure, the patient's blood pressure, pulse, and oxygen saturations were monitored continuously. The gastroscope was introduced through the mouth, and advanced to the second part of duodenum. The upper GI endoscopy was accomplished without difficulty. The patient tolerated the procedure well. Scope In: 11:13:26 AM Scope Out: 11:29:22 AM Total Procedure Duration Time 0 hours 15 minutes 56 seconds Findings: A large, ulcerating mass with bleeding and no stigmata of recent bleeding was found in the lower third of the esophagus, at the gastroesophageal junction and in the cardia, 36 cm from the incisors. The mass was partially obstructing and circumferential. Biopsies were taken with a cold forceps for histology. A large, infiltrative, circumferential mass with no bleeding and stigmata of recent bleeding was found in the cardia. Biopsies were taken with a cold forceps for histology. Diffuse mildly erythematous mucosa without bleeding was found in the gastric antrum. Biopsies were taken with a cold forceps for histology. The examined duodenum was normal. Placement of an externally removable PEG with no T-fasteners was successfully completed. The external bumper was at the 2.5 cm marking on the tube. Impression: - Partially obstructing, malignant esophageal tumor was found in the lower third of the esophagus, at the gastroesophageal junction and in the cardia. 7 cm length. Biopsied. 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 Biopsied. - Erythematous mucosa in the antrum. Biopsied. - Normal examined duodenum. - An externally removable PEG placement was successfully completed. Recommendation: - Discharge patient to home. - Resume previous diet. - Continue present medications. - Refer to an oncologist in 1 week. Will start PEG feedings Procedure Code(s): --- Professional --- 57080, Esophagogastroduodenoscopy, flexible, transoral; with directed placement of percutaneous gastrostomy tube 64636, Esophagogastroduodenoscopy, flexible, transoral; with biopsy, single or multiple Diagnosis Code(s): --- Professional --- C15.5, Malignant neoplasm of lower third of esophagus C16.0, Malignant neoplasm of cardia K31.89, Other diseases of stomach and duodenum R13.10, Dysphagia, unspecified CPT copyright 2017 [employer]. All rights reserved. The codes documented in this report are preliminary and upon outpatient coder review may be revised to meet current compliance requirements. Emigdio Trejo MD 04/11/2023 11:39:35 AM This report has been signed electronically. Number of Addenda: 0 Note Initiated On: 04/11/2023 10:58 AM
--- NOTE | 2023-04-11 11:40 | OP.CCLET_ITS ---
04/11/2023 Gomez Nelson [address] [place] [address] Re : Upper GI endoscopy procedure for Chiara Phong Dear Dr. Nelson This procedure was performed on Tuesday, April 11, 2023. My impressions and recommendations are as follows: Impressions : - Partially obstructing, malignant esophageal tumor was found in the lower third of the esophagus, at the gastroesophageal junction and in the cardia. 7 cm length. Biopsied. 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 Biopsied. - Erythematous mucosa in the antrum. Biopsied. - Normal examined duodenum. - An externally removable PEG placement was successfully completed. Recommendations : - Discharge patient to home. - Resume previous diet. - Continue present medications. - Refer to an oncologist in 1 week. Will start PEG feedings My findings are described in the full procedure note, which is enclosed. If I can be of further assistance, please feel free to contact me at Doctor phone number(s): Work: . Sincerely, Emigdio Trejo MD 04/11/2023 11:39:35 AM This report has been signed electronically.
[2023-04-11 11:45] VITALS: BP 130/48; BP 149/34; PULSE 78; RESP 16; O2SAT 98
[2023-04-11 11:50] VITALS: BP 124/44; BP 149/34; PULSE 69; RESP 16; O2SAT 99
[2023-04-11 11:55] VITALS: BP 143/43; BP 149/34; PULSE 68; RESP 16; TEMP 36.4; O2SAT 98
[2023-04-11 12:47] VITALS: BP 149/34
== END 2023-04-11 13:43 | disposition home or self-care (01) ==
LOC: EN 09:19 → AC 09:21
PROVIDERS: PCP Family Medicine; Referring Provider Family Medicine; Visit Provider Surgery
PROC: 0DJ08ZZ Inspection of Upper Intestinal Tract, Via Natural or Artificial Opening Endoscopic (ICD-10-PCS; CPT 43235; principal; 2023-04-11 10:25)
DX: C15.5 Malignant neoplasm of lower third of esophagus (principal); E11.22 Type 2 diabetes mellitus with diabetic chronic kidney disease; I70.0 Atherosclerosis of aorta; I48.20 Chronic atrial fibrillation, unspecified; N18.30 Chronic kidney disease, stage 3 unspecified; R13.19 Other dysphagia; I12.9 Hypertensive chronic kidney disease with stage 1 through stage 4 chronic kidney disease, or unspecified chronic kidney disease; I25.10 Atherosclerotic heart disease of native coronary artery without angina pectoris; E78.00 Pure hypercholesterolemia, unspecified; K31.89 Other diseases of stomach and duodenum; N40.0 Benign prostatic hyperplasia without lower urinary tract symptoms; Z79.899 Other long term (current) drug therapy; Z80.0 Family history of malignant neoplasm of digestive organs; Z95.1 Presence of aortocoronary bypass graft
CPT/HCPCS: 43246; 43239; 88305; 88313; 88341; 88342; 97802; J7120; J2405

== ENCOUNTER 2023-04-20 22:24 | Inpatient (IN) | payer MEDICARE, SELFPAY ==
--- NOTE | 2023-04-20 22:25 | EKG12_ITS ---
Test Reason : CP Blood Pressure : / mmHG Vent. Rate : 100 BPM Atrial Rate : 100 BPM P-R Int : 152 ms QRS Dur : 088 ms QT Int : 340 ms P-R-T Axes : 071 076 084 degrees QTc Int : 438 ms Normal sinus rhythm Left ventricular hypertrophy with repolarization abnormality Abnormal ECG Confirmed by VERO ROCKWELL, JOSSY ([id number]), editorial cartoonist JOSESITO FIELDS ([id number]) on 04/21/2023 9:23:03 AM Referred By: BB Confirmed By:JOSSY PHAM MD
[2023-04-20 22:26] VITALS: BP 182/60; PULSE 101; RESP 11; TEMP 36.6; O2SAT 99; BMI 26.1
--- NOTE | 2023-04-20 22:44 | RAD_ITS ---
STUDY: X-RAY CHEST REASON FOR EXAM: Male, 82 years old. Chest pain, sob TECHNIQUE: PA and lateral views of the chest. COMPARISON: 11/08/2016 chest x-ray, chest CT April 04, 2023 FINDINGS: Since prior study there is a fairly similar-appearing small to moderate loculated right effusion. There is increasing overall interstitial prominence suggesting edema. There is blunting of the left costophrenic angle similar to prior study. Sternal cerclage wires are present from a prior sternotomy. Normal mediastinum and lidia. Normal visualized pulmonary arteries. Normal visualized aortic arch and descending thoracic aorta. There are diffuse degenerative changes of the visualized thoracic spine. Normal visualized ribs, clavicles, and shoulders. There is no demonstrated abnormality of the visualized soft tissue structures of the upper abdomen. RAD/Chest PA and Lateral IMPRESSION: Chronic right pleural effusion. Interval development of increasing interstitial markings suggesting mild edema. Trace left effusion and/or scarring. Electronically Signed: Liliam Estes MD at 0:06 EDT ,
--- NOTE | 2023-04-20 22:45 | EDS_ITS ---
HPI History of Present Illness Chief Complaint: Chest Pain Informant: patient and family Narrative Narrative: Patient with about 1.5 hours of chest discomfort started while he was resting lying down. Little better when he sits up, and worse when he lies down. No npleuritic. Tightness across his chest and radiating down his left arm. [place] a little sweaty, a little short of breath, has been coughing lately, lots of sinus congestion that he seems to be swallowing, no fevers or chills. Has a history of an aortic valve replacement in 2016, has not seen cardiology in 2 years because everything has been doing really well. It is a bioprosthetic valve. Takes baby aspirin no anticoagulants. Just had a CT and an EGD less than 2 weeks ago, due to dysphagia and diagnosed with an esophageal mass that ended up being positive for cancer, and just saw oncology in preparation for treatment planning and staging. He just got a feeding tube because he cannot eat solids, he is able to take liquids however. Used to see Dr. Bipin delgado/ cardiology, scheduled to see Dr. Medina soon but hasn't seen him yet. [facility] Medical History (Updated 04/21/23 @ 02:[address] 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 adenocarcinoma Nonrheumatic mitral valve regurgitation Prostate disease Thyroid disease Wears dentures Wears hearing aid Home Medications tamsulosin 0.4 mg capsule 0.4 mg PO QHS 11/15/16 [History Last Taken Unknown] furosemide 40 mg tablet 40 mg PO DAILY #90 tabs 10/04/17 [Rx Last Taken Unknown] levothyroxine 150 mcg tablet 150 mcg PO DAILY 08/14/18 [History Last Taken 05/11/21 05:30] multivitamin 1 cap PO DAILY 05/10/21 [History Last Taken Unknown] metoprolol tartrate 50 mg tablet 50 mg PO BID #180 tabs 10/24/22 [Rx Last Taken 04/11/23 08:30] atorvastatin 80 mg tablet 80 mg PO QDAY #90 tabs 11/21/22 [Rx Last Taken Unknown] Allergy/AdvReac Type Severity Reaction Status Date / Time No Known Allergies Allergy Verified 04/20/23 08:40 Family History (Updated 04/21/23 @ 02:[address] Kassy Rosado MD) Brother Colon cancer Mother No problems noted. Father No problems noted. 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) Social History Smoking Status: Never smoker second hand exposure: No alcohol intake: never substance use type: does not use caffeine: No what type of physical activity do you participate in: none frequency: does not exercise ROS ROS ED Constitutional Constitutional ED: Reports sweats; Denies chills or fever(s) Eyes Eyes: Denies change in vision or diplopia ENT ENT ED: Reports as per HPI and dysphagia; Denies rhinorrhea or sore throat Cardiovascular Cardiovascular: Reports as per HPI, chest pain, leg edema, lightheadedness, racing heartbeat and radiating jaw, neck or arm pain; Denies dyspnea on e xertion, palpitations or syncope Respiratory/Chest Respiratory/Chest: Reports cough and dyspnea Gastrointestinal Gastrointestinal: Denies abdominal pain, diarrhea, nausea or vomiting Genitourinary Genitourinary ED: Denies dysuria or hematuria Musculoskeletal Musculoskeletal: Denies back pain or neck pain Integumentary Denies abscess or rash Neurologic Neurologic: Denies headache(s), paresthesias or weakness Psychiatric Psychiatric: Denies anxiety or suicidal thoughts EXAM Physical Exam Const Vital Signs: 04/20/23 22:26 04/20/23 22:30 04/21/23 00:18 Temperature 98 F Temperature Source Oral Pulse Rate 101 H Respiratory Rate 11 L Respiratory Pattern Normal Blood Pressure 182/60 H Blood Pressure Mean 100 Pulse Ox 99 97 Oxygen Delivery Method Room Air Nasal Cannula Oxygen Flow Rate (L/min) 5 04/21/23 00:18 04/21/23 00:41 Temperature Temperature Source Pulse Rate 103 H 101 H Respiratory Rate 22 H Respiratory Pattern Blood Pressure 181/68 H 165/65 H Blood Pressure Mean 105 Pulse Ox 97 Oxygen Delivery Method Oxygen Flow Rate (L/min) Positive well nourished and well developed General Appearance ED: well developed and NAD HEENT Reports moist mucous membranes HEENT Narrative: Very hard of hearing normocephalic and atraumatic Eyes PERRL and EOMs intact bilaterally Neck full ROM, no lymphadenopathy, supple and no JVD Chest Wall inspection of chest normal and palpation of chest normal Resp normal respiratory effort and clear to auscultation bilaterally Cardio regular rate and regular rhythm Heart Sounds: murmur systolic III/ crescendo-decrescendo Peripheral Pulses: pulses 2+ throughout GI non-tender and non-distended GI Narrative: Epigastric G-tube site benign Auscultation: normoactive bowel sounds Palpation: soft Back/Spine no CVA tenderness General Back: other FROM Extremity normal to inspection General Extremety ED: Yes edema; Negative for pulses abnormal or tenderness General Extremity: edema bilateral lower extremity Details: mild; Negative for pulses abnormal Neuro oriented x3, CN's II-XII intact bilaterally and no sensory deficits noted Sensorium / Orientation: awake and alert Motor Exam: strength 5/5 throughout Skin no rashes or lesions noted and no wounds Heart Score History: Moderately Suspicious ECG: Significant ST-Depression Age: >/= 65 years Risk Factors: >/= 3 Risk Factors or History of CAD Troponin: </= Normal Limit Score: 7 MDM MDM MDM Narrative Medical decision making narrative: Patient with chest discomfort referring to the left upper extremity, considered cardiac etiologies but also esophageal especially given his recently diagnosed esophageal neoplasm and dysphagia. Initially given a GI cocktail but it did not help any of his discomfort so he was then given morphine and nitroglycerin while we did a work-up. EKG is abnormal compared with his old 1. However his old one was 5 years ago. His initial troponin is well within normal limits at 10. His BNP is a little high at 228, however it is lower than it had been in the past and his last echocardiogram that I have records of according to the records was maybe 7 years ago and showed severe aortic stenosis before he had his valve replacement. He has also had a CABG in the past, although the patient did not disclose that he has any type of heart disease other than the valve. No known history of congestive heart failure he did have a history of A-fib and underwent cardioversion, he is not currently in A-fib. His chest x-ray 2 views of my interpretation shows right-sided pleural effusion and what appears to be interstitial infiltrates bilaterally. Radiology in agreement suggesting this may be edema. Reviewing his records, it looks like he had a CT of the chest abdomen and pelvis less than 2 weeks ago that showed a loculated right pleural effusion, but he did not have infiltrates or edema at that time. He also noted that he had heavily calcified coronary arteries. Given that he is not tachycardic or hypoxic, discomfort is not pleuritic, and EKG is more indicative of left heart strain if anything, rather than right, I do not think he needs to be evaluated for an emergent PE here. History is more concerning for angina than PE, and he has renal insufficiency, and if this is cardiogenic pulmonary edema I do not want to give him IV fluids to flush the contrast for CTA, so I think at this time the risks of performing CTA outweigh the potential benefits. Pt did feel significantly better after NTG x 1 and small dose of IV morphine. Patient's 2-hour troponin went from normal to over 500. He is much more comfor table right now, discomfort 11/04. I repeated his EKG, and interpreted as below. Much improvement consistent with dynamic changes in all of this consistent with acute coronary syndrome/unstable angina. Given that patient is feeling much better nitroglycerin paste is placed on his chest. Will discuss with cardiology. Hospitalist to admit to PCU History & Record Review Additional record(s) reviewed:: Prior outpatient record (Recent CT chest, abdomen, pelvis) and Prior labs Lab Data Attestation: I reviewed the patient's lab results. Labs: Laboratory Results - last 24 hr 04/20/23 22:36 WBC 7.9 RBC 3.34 L Hgb 9.1 L Hct 29.1 L MCV 87.1 MCH 27.2 MCHC 31.3 L RDW Std Deviation 41.4 RDW Coeff of Ash 13.1 Plt Count 191 MPV 12.4 H Immature Gran % (Auto) 0.300 Neut % (Auto) 71.9 H Lymph % (Auto) 17.1 L Jackson % (Auto) 6.9 Eos % (Auto) 2.9 Baso % (Auto) 0.9 Absolute Neuts (auto) 5.7 Absolute Lymphs (auto) 1.34 Nucleated RBC % 0 PT 14.1 INR 1.1 APTT 32.4 Sodium 139 Potassium 5.0 Chloride 106 Carbon Dioxide 26.0 Anion Gap 7 BUN 47 H Creatinine 1.44 H Estim Creat Clear Calc 40.84 Est GFR (MDRD) Af Amer 60 Est GFR (MDRD) Non-Af 50 L BUN/Creatinine Ratio 32.6 H Glucose 162 H Calcium 9.1 Troponin I High Sens 10 B-Natriuretic Peptide 228.1 H Radiography Chest X-Ray - ED: 2 View and Read by ED Physician Diagnostic Testing: Clinical Impression(s) from Imaging Studies Chest X-Ray 04/20/23 22:44 IMPRESSION: Chronic right pleural effusion. Interval development of increasing interstitial markings suggesting mild edema. Trace left effusion and/or scarring. Electronically Signed: Liliam Estes MD at 0:06 EDT Reading Location ID and State: [facility] [place] / [place] Tel , Service support , Rhythm Strip Rhythm Strip: Sinus Rhythm Rate: 95 Ectopy: None EKG Initial EKG: Attestation: I personally reviewed and interpreted this EKG as follows: Interpretation: Sinus Rhythm, No Acute Injury Pattern, Inverted T-Waves (Biphasic laterally precordial leads) and S-T Depression (Septal laterally without reciprocal changes, and possible 0.5 mm in lead III and lead I) Prior EKG tracings: available for review Prior: Changed (All above new findings compared with last EKG from 09/07/2018) Follow-up EKG: Attestation: I personally reviewed and interpreted this EKG as follows: Interpretation: Sinus Rhythm and No Acute Injury Pattern Comments: Resolution of earlier ST segment abnormalities, minor nonspecific ST-T wave abnormalities exist in same leads but significant improvement Management Discussion w/another healthcare provider: Hospitalist and Financial Representative Discharge Plan Triage Chief Complaint: Chest Pain ED Provider: Дмитрий Howard Dx/Rx/DC Orders Clinical Impression: Unstable angina, Pleural effusion, right, Esophageal cancer, Acute CHF, Chronic kidney disease, stage 3 Primary Care Provider: Gomez Nelson Disposition Disposition: Acute Care Hospital [facility]
[2023-04-20 23:06] LABS: Absolute Lymphocyte Count 1.34 X10^3/uL (0.83-4.51); Absolute Neutrophil Count 5.7 X10^3/uL (2.0-7.7); Basophil# 0.07 X10^3/uL; Basophil% 0.9 % (0-1); Eosinophil# 0.23 X10^3/uL; Eosinophils% 2.9 % (0-5); Hematocrit 29.1 % (40-54); Hemoglobin 9.1 g/dL (13.0-16.5); Lymphocyte # 1.34 X10^3/ul (0.83-4.51); Lymphocyte % 17.1 % (19-41); Mean Corp Hgb Conc 31.3 g/dL (32-36); Mean Corpuscular Hgb 27.2 pg (27.0-32.0); Mean Corpuscular Volume 87.1 fL (80-94); Mean Platelet Vol. 12.4 fl (6.2-12.0); Monocyte# 0.54 X10^3/uL; Monocyte% 6.9 % (0-10); NRBC Flagged by Analyzer 0 % (0-5); Neutrophil # 5.65 X10^3/uL (2.7-7.7); Neutrophil % 71.9 % (47-70); Platelet Count 191 K/mm3 (150-450); RBC Distribution Width CV 13.1 % (11.6-14.6); RBC Distribution Width SD 41.4 fl (35.1-43.9); Red Blood Count 3.34 M/mm3 (4.6-6.2); White Blood Count 7.9 K/mm3 (4.4-11.0)
[2023-04-20] MEDS: Mag Hydrox/Al Hydrox/Simeth 30 ML UDC PO (23:15)
[2023-04-20] MEDS: Aspirin 81 MG TAB.CHEW 162 MG GT (23:15)
[2023-04-20 23:24] LABS: Anion Gap 7 (5-15); BNP,B-Type NATRIURETIC PEPTIDE 228.1 pg/mL (0-100); BUN 47 mg/dL (7-18); BUN/Creat Ratio 32.6 RATIO (10-20); Calcium,Total 9.1 mg/dL (8.5-10.1); Chloride 106 mmol/L (98-107); Creatinine, Serum 1.44 mg/dL (0.70-1.30); EST Glomerular Filtration Rate 50 mL/min (>60); Est Glom Filt Rate - Afr Amer 60 mL/min (>60); Estimated Creatinine Clearance 40.84 ml/min; Glucose 162 mg/dL (74-106); Sodium Level 139 mmol/L (136-145); Troponin-I HS (w/2H Reflex) 10 pg/mL (3.0-78.0)
[2023-04-21] VITALS (13 sets, daily range): BP systolic 125–181; BP diastolic 39–71; PULSE 75–103; RESP 16–22; TEMP 36.1–36.6; O2SAT 95–100; BMI 24.8
[2023-04-21] MEDS: Morphine 2 MG/ML Syringe IV (00:41)
[2023-04-21] MEDS: Nitroglycerin SL (ED/IMG/CATH) 0.4 MG TABLET SL (00:41)
--- NOTE | 2023-04-21 00:43 | PCM.HP.STD ---
[facility] - General General Date of Admission: 04/21/23 Date of Service: 04/21/23 Chief Complaint: Dyspnea, chest pain. 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 Trejo with recent day of presentation evaluation with Dr. Veronica Jeffers who presents to the [facility] ED on 04/20/23 with history of onset of chest discomfort approximately 1.5 hours ongoing while he was resting and attempting to lay down improving when he sits up described as a tightness across his chest and rating down his left upper extremity with mild diaphoresis and dyspnea with recent mild cough although he does report some congestion and postnasal drip with no recent fevers or chills prompting eventual ED evaluation. Patient also reports that he did take himself off of his diuretic therapy as he had not been eating much and he thought maybe he was dehydrated so for several days at least a week he has not been taking any of the diuretic medication. Work-up in the ED included T98, heart rate 101, BP 182/60, respiratory rate 11, 99% on room air--> eventually de-escalating placed on 5 L nasal cannula to be 97%, CBC with WC 7.9, hemoglobin 9.1, platelet 191 without marked shift, BMP with BUN/creatinine 47/1.44, glucose 162, troponin 10 with repeat delta troponin 545, BNP 228.1, EKG with sinus rhythm with inverted T waves biphasic laterally in the precordial leads as well as ST depressions septally and laterally without reciprocal changes as well as possible 0.5 mm in lead III and I new compared to prior EKG 09/07/2018, chest x-ray with chronic right pleural effusion with inner development of increasing interstitial markings suggestive of mild edema. Lab work-up obtained per Dr. Veronica Jeffers earlier in the day and noted in the chart included CBC with WBC 8, hemoglobin 8.7, platelets 192 with lymphopenia, CMP with BUN/creatinine 46/1.42, glucose 194, iron 21, TIBC 217, iron saturation 9.7, ferritin 94, T. bili 0.30, AST/LT 15, alk phos 95, vitamin B12 611. In the ED patient ministered aspirin 162 mg GT x1, viscous lidocaine, Mylanta, morphine 2 mg IV x1 as well as nitroglycerin sublingual regimen. Discussed case with ED physician and will administer also IV lasix. The ED noted plan to review case with Dr. Medina. [facility] Medical History (Updated 04/21/23 @ 02:[address] Kassy Rosado MD) Anemia Arthritis Atherosclerotic heart disease of [place] coronary artery without angina pectoris (07/14/16) Atrial fibrillation, chronic Chronic kidney disease, stage 3 Diabetes mellitus, type II Dysphagia Family history of colon cancer Former smoker High cholesterol History of aortic stenosis History of pleural effusion Hyperlipidemia Hypertension Leg cramps Loss of hearing Metastasis to liver Metastatic adenocarcinoma Nonrheumatic mitral valve regurgitation Prostate disease Thyroid disease Wears dentures Wears hearing aid Home Medications tamsulosin 0.4 mg capsule 0.4 mg PO QHS 11/15/16 [History Last Taken Unknown] furosemide 40 mg tablet 40 mg PO DAILY #90 tabs 10/04/17 [Rx Last Taken Unknown] levothyroxine 150 mcg tablet 150 mcg PO DAILY 08/14/18 [History Last Taken 05/11/21 05:30] multivitamin 1 cap PO DAILY 05/10/21 [History Last Taken Unknown] metoprolol tartrate 50 mg tablet 50 mg PO BID #180 tabs 10/24/22 [Rx Last Taken 04/11/23 08:30] atorvastatin 80 mg tablet 80 mg PO QDAY #90 tabs 11/21/22 [Rx Last Taken Unknown] Allergy/AdvReac Type Severity Reaction Status Date / Time No Known Allergies Allergy Verified 04/20/23 08:40 Family History Brother Colon cancer Mother No problems noted. Father No problems noted. 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) Social History Smoking Status: Never smoker second hand exposure: No alcohol intake: never substance use type: does not use caffeine: No what type of physical activity do you participate in: none frequency: does not exercise ROS ROS Narrative Admission Review of Systems: CONSTITUTIONAL: No weight loss, fever, chills, + weakness or fatigue. HEENT: Eyes: No visual loss, blurred vision, double vision or yellow sclerae. Ears, Nose, Throat: No hearing loss, sneezing, congestion, runny nose or sore throat. SKIN: No rash or itching, lesions, wounds. CARDIOVASCULAR: + chest pain, chest pressure or chest discomfort, edema, orthopnea. No palpitations, syncopal events. RESPIRATORY: + shortness of breath, occasional cough without marked sputum. No wheezing, hemoptysis. GASTROINTESTINAL: + dysphagia, anorexia, s/p PEG tube placement. No current nausea, vomiting, diarrhea, abdominal pain, melena, BRBPR. GENITOURINARY: No dysuria, frequency, urgency or retention. NEUROLOGICAL: No headache, dizziness, syncope, paralysis, ataxia, numbness or tingling in the extremities, focal weakness, change in bowel or bladder control, seizure. MUSCULOSKELETAL: + muscle, back pain, joint pain or stiffness. HEMATOLOGIC: + anemia, bleeding or bruising. LYMPHATICS: No enlarged nodes. No history of splenectomy. PSYCHIATRIC: No history of depression or anxiety. ENDOCRINOLOGIC: No reports of sweating, cold or heat intolerance. No polyuria or polydipsia. ALLERGIES: No history of asthma, hives, eczema or rhinitis. Vital Signs Vital Signs Vital Signs: 04/20/23 22:26 04/20/23 22:30 04/21/23 00:18 Temperature 98 F Temperature Source Oral Pulse Rate 101 H Respiratory Rate 11 L Respiratory Pattern Normal Blood Pressure 182/60 H Blood Pressure Mean 100 Pulse Ox 99 97 Oxygen Delivery Method Room Air Nasal Cannula Oxygen Flow Rate (L/min) 5 04/21/23 00:18 Temperature Temperature Source Pulse Rate 103 H Respiratory Rate 22 H Respiratory Pattern Blood Pressure 181/68 H Blood Pressure Mean 105 Pulse Ox 97 Oxygen Delivery Method Oxygen Flow Rate (L/min) Weight Weight: 181 lb 14.102 oz Body Mass Index (BMI) 26.1 Physical Exam Narrative Physical Examination: General: Awake, alert, oriented x 3 and cooperative, seated upright in the ED bed, fatigued, mildly increased respiratory rate but no distress. Skin: Normal color, normal turgor, no icterus, no cyanosis except occasional staged ecchymoses and mild stasis skin changes to bilateral lower extremities. HEENT: AT/NC, EOMI, PERRLA, mildly dry MM, no carotid bruits, + JVD noted. Lungs: Significantly diminished, greater bases, mildly increased respiratory rate but no distress, mild rales at bases, distant, no obvious rhonchi or wheezing. Heart: Currently mildly tachycardic with regular rhythm; no gallop, rub audible, + SM status post AVR and MV repair. Abdomen: Soft, G-tube in place, NTTP, ND, distant normal BS, no HSM. Extremities: No cyanosis, no clubbing, mild peripheral distal edema. Neurological: Patient awake, alert, oriented as noted, cognitive function intact; pupils equally reactive to light and accommodation, cranial nerves grossly normal, moving all 4 extremities, no focal deficits, strength moderately to severely globally decreased secondary to acute presentation and underlying comorbidities. Psychiatric: Affect appears flat, fatigued, no acute evidence of depressive or anxiety feelings. Results Lab / Micro Data 04/20/23 22:36 04/20/23 22:36 Labs: Laboratory Results - last 24 hr 04/20/23 22:36: WBC 7.9, RBC 3.34 L, Hgb 9.1 L, Hct 29.1 L, MCV 87.1, MCH 27.2, MCHC 31.3 L, RDW Std Deviation 41.4, RDW Coeff of Ash 13.1, Plt Count 191, MPV 12.4 H, Immature Gran % (Auto) 0.300, Neut % (Auto) 71.9 H, Lymph % (Auto) 17.1 L, Crisp % (Auto) 6.9, Eos % (Auto) 2.9, Baso % (Auto) 0.9, Absolute Neuts (auto) 5.7, Absolute Lymphs (auto) 1.34, Nucleated RBC % 0, Sodium 139, Potassium 5.0, Chloride 106, Carbon Dioxide 26.0, Anion Gap 7, BUN 47 H, Creatinine 1.44 H, Estim Creat Clear Calc 40.84, Est GFR (MDRD) Af Amer 60, Est GFR (MDRD) Non-Af 50 L, BUN/Creatinine Ratio 32.6 H, Glucose 162 H, Calcium 9.1, Troponin I High Sens 10, B-Natriuretic Peptide 228.1 H Rhythm Strip Rhythm Strip: Sinus Rhythm Rate: 95 Ectopy: None Radiology Impression Chest X-Ray 04/20/23 22:44 IMPRESSION: Chronic right pleural effusion. Interval development of increasing interstitial markings suggesting mild edema. Trace left effusion and/or scarring. 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 Trejo with recent day of presentation evaluation with Dr. Martin Oncology who presents to the [facility] ED on 04/20/23 with history of onset of chest discomfort approximately 1.5 hours ongoing while he was resting and attempting to lay down improving when he sits up described as a tightness across his chest and rating down his left upper extremity with mild diaphoresis and dyspnea with recent mild cough although he does report some congestion and postnasal drip with no recent fevers or chills prompting eventual ED evaluation. #1. Chest Pain with EKG changes from prior secondary to acute NSTEMI, possibly type I: EKG in ED with sinus rhythm with inverted T waves biphasic laterally in the precordial leads as well as ST depressions septally and laterally without reciprocal changes as well as possible 0.5 mm in lead III and I new compared to prior EKG 09/07/2018, CXR w/ chronic right pleural effusion with inner development of increasing interstitial markings suggestive of mild edema with planned treatment as noted #2, initial trop 10 with repeat delta 545. Will admit to PCU, place on a monitored bed, cycle cardiac enzymes and EKGs. ECHO requested. Heparin drip started in the ED with bolus and will continue given NSTEMI. Magnesium level requested. Will continue cardiology consultation initiated per ED. FLP in AM. Will maintain NPO status pending AM Cardiology evaluation althouhg given #2, they may defer until he is able to lay flat better for catheterization. ASA, NG, morphine. #2. Suspected Acute Decompensated CHF, new onset complicated by underlying valvular disease: Patient administered IV lasix in the ED, will maintain on cardiac telemetry, obtain cardiac enzyme series, obtain serial EKGs, continue IV lasix diuresis, monitor I/Os, maintain on intake restriction, continue medical management, ECHO requested, magnesium level requested, TSH level pending. Will continue cardiology consultation initiated per ED. NG. #3. 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 Following with Dr. Treoj outpatient, recent 03/30/23 barium swallow with noted long irregular segment of narrowing of the distal esophagus extending to the GE junction was identified with a 12 mm barium tablet becoming trapped with esophageal cancer with extension into the stomach suspected per Surgery. CT C/A/P 04/04/23 w/ abnormal esophagus consistent with neoplastic disease extending to the cardia of the stomach and associate with epigastric adenopathy, possible metastatic disease in the liver, possible skeletal metastatic disease unable to be excluded with multiple other chronic findings. Status post EGD for Bx consistent with cancer per report and percutaneous endoscopic gastrostomy tube placement performed. We will continue diabetic tube feeds with clear liquids allowed orally. Patient with recent 04/20/2023 oncology evaluation as noted to initiate treatment plan with labs obtained. #4. Valvular Heart Disease: s/p AVR bioprosthetic and MV repair, no recent echocardiogram noted, most recent cardiac cath 11/16/2016. #5. CAD: s/p CABG x 1, will continue baby aspirin, continue metoprolol, statin therapy. #6. Chronic normocytic anemia/iron deficiency anemia: Admission hemoglobin 9.1, earlier in the day CBC per oncology with noted 8.7, MCV 88.9, decreased from recent 03/24/2023 hemoglobin 10.5, prior has been baseline 10-12 range, recent diagnosis of likely metastatic cancer as etiology, will continue to closely trend. #7. PAF: We will continue patient home metoprolol regimen, not currently anticoagulated, will continue baby aspirin. #8. CKD stage III unclear subtype: Admission BUN/Cr 47/1.44, baseline renal function appears primarily 1.4-1.7, repeat BMP in AM. If needed given diuresis and #1 with catheterization may involve nephrology if worsening renal function noted. #9. Diabetes mellitus type II: Recent hemoglobin A1c 03/24/2023 noted to be 5.8%, hold oral home regimen, will continue diabetic tube feed supplementation and allow oral liquids, accu checks w/ ISS. #10. Hypertension: Continue home regimen including metoprolol, Lasix, PRN hydralazine. #11. Hyperlipidemia: Continue home statin regimen. AM FLP. #12. BPH: We will continue patient on Flomax regimen. #13. Hypothyroidism: We will continue patient on levothyroxine regimen, TSH requested. #14. DVT prophylaxis: Heparin drip as noted. #15. CODE status: Patient JORDAN is his who is present and son also present and living will is currently in place. Discussed CODE status at length including difference between FULL code, DNR-CCA and DNR-CC status. Following discussions about the differences in these status, requested Full Code status. Discussed his current recent diagnosis of metastatic cancer and likely upcoming aggressive intervention pathway and recommended that he continue to review his CODE STATUS options and decisions with his spouse and son. Advanced Care Planning Face to Face Time: 16 minutes. Charges/Coding Visit Charges Inpatient E&M: 70972 Init Hosp L3 Procedures Hospitalists Procedures: 62918 Advncd Care Plan 30 Min
[2023-04-21 01:03] LABS: Reflex Troponin-HS? (from REC) Y
[2023-04-21 01:54] LABS: Troponin-I HS 545 pg/mL (3.0-78.0)
[2023-04-21 02:21] LABS: International Normalized Ratio 1.1; Prothrombin Time (Protime)PT. 14.1 SECONDS (11.7-14.9)
[2023-04-21] MEDS: Heparin Injection (Vial) 5,000 UNIT/ML VIAL 4000 UNIT IV (02:21)
[2023-04-21 02:22] LABS: Partial Thromboplast Time 32.4 Seconds (24.1-36.2)
[2023-04-21] MEDS: HEPARIN/D5w 25,000 UNITS 25,000 UNITS/250 ML IV.SOLN. 10 UNITS CONT INF (02:26)
[2023-04-21 02:46] LABS: Magnesium 2.2 mg/dL (1.6-2.6)
[2023-04-21] MEDS: Nitroglycerin Oint 1 INCH PACKET 0.5 INCH TD ×3 (02:51→12:00)
--- NOTE | 2023-04-21 03:07 | EKG12_ITS ---
Test Reason : REPEAT Blood Pressure : / mmHG Vent. Rate : 096 BPM Atrial Rate : 096 BPM P-R Int : 182 ms QRS Dur : 092 ms QT Int : 354 ms P-R-T Axes : 051 072 084 degrees QTc Int : 447 ms Normal sinus rhythm Nonspecific ST abnormality Abnormal ECG Confirmed by VERO ROCKWELL, JOSSY ([id number]), telecom sales consultant JOSESITO FIELDS ([id number]) on 04/21/2023 9:23:16 AM Referred By: ANNE Confirmed By:JOSSY PHAM MD
--- NOTE | 2023-04-21 03:07 | ECHOD_ITS ---
Reason For Study: NSTEMI, CHF Procedure This was a 2D Doppler, Color Flow transthoracic echocardiogram. Exam performed portable in patient room. Left Ventricle Normal LV size. Left ventricular systolic function is normal. The estimated ejection fraction is 54 %. No regional wall motion abnormalities noted. Right Ventricle Normal RV size. Normal systolic function. Atria The left atrium is mildly enlarged. Normal right atrium. Mitral Valve Status post mitral valve repair with annuloplasty ring. Tricuspid Valve Normal tricuspid valve. Moderate (2+) tricuspid valve insufficiency. Pulmonary artery systolic pressure is 50 mmHg. Aortic Valve Peak aortic valve gradient 13 mmHg. Mean aortic valve gradient 6 mmHg. Bioprosthetic aortic valve. Great Vessels Normal aortic root. The pulmonary artery is normal size. Normal inferior vena cava. Pericardium/Pleural No pericardial effusion. MMode/2D Measurements & Calculations LVIDd: 4.8 cm IVSd: 1.1 cm LVOT diam: 2.0 cm LVIDs: 3.3 cm LVPWd: 1.1 cm LVOT area: 3.3 cm2 RVDd: 4.1 cm FS: 31.2 % Ao root diam: 3.1 cm LAV(MOD-bp): 73.8 ml LVAd ap4: 38.1 cm2 LAV(MOD-bp) Indexed: 37.6 ml/m2 LVLd ap4: 8.3 cm LAV(MOD-sp2): 69.3 ml EDV(MOD-sp4): 144.8 ml LAV(MOD-sp4): 66.4 ml EDV(sp4-el): 148.6 ml LVAs ap4: 24.2 cm2 LVLs ap4: 7.2 cm ESV(MOD-sp4): 66.8 ml ESV(sp4-el): 68.9 ml EF(MOD-sp4): 53.9 % EF(sp4-el): 53.6 % SV(MOD-sp4): 78.0 ml SV(sp4-el): 79.7 ml LA A4 area: 23.3 cm2 LA dimension(2D): 4.0 cm RA A4 area: 19.6 cm2 TAPSE: 2.2 cm Time Measurements MV dec time: 0.28 sec Doppler Measurements & Calculations MV E max james: 134.7 cm/sec Lat Peak E' James: 10.9 cm/sec Med Peak E' James: 5.8 cm/sec MV A max james: 116.5 cm/sec E/E' lat: 12.4 E/E' med: 23.2 MV E/A: 1.2 MV V2 max: 172.4 cm/sec MV P1/2t max james: 166.3 cm/sec Ao V2 max: 179.1 cm/sec MV max P.9 mmHg MV P1/2t: 64.0 msec Ao max P.8 mmHg MV V2 mean: 122.0 cm/sec Ao V2 mean: 119.7 cm/sec MV mean P.3 mmHg MV dec slope: 760.9 cm/sec2 Ao mean P.4 mmHg MV V2 VTI: 36.1 cm MVA(P1/2t): 3.4 cm2 Ao V2 VTI: 37.1 cm AV (velocity ratio): 0.86 MVA(VTI): 2.9 cm2 TIFFANY(I,D): 2.8 cm2 TIFFANY(V,D): 2.4 cm2 LV V1 max: 132.6 cm/sec SV(LVOT): 104.6 ml PA V2 max: 107.3 cm/sec LV V1 max P.0 mmHg LV V1 mean P.4 mmHg LV V1 mean: 85.5 cm/sec LV V1 VTI: 31.9 cm TR max james: 342.9 cm/sec TR max P.0 mmHg ECHO/Echo Complete Interpretation Summary Status post mitral valve repair with annuloplasty ring. Normal LV size. Left ventricular systolic function is normal. The estimated ejection fraction is 54 %. Moderate (2+) tricuspid valve insufficiency. Pulmonary artery systolic pressure is 50 mmHg. Mean aortic valve gradient 6 mmHg. The left atrium is mildly enlarged. Ordering Physician: Kassy Rosado Referring Physician: VADIM MARTINEZ Performed By: Nga Joshua RDCS
--- NOTE | 2023-04-21 03:15 | EKG12_ITS ---
Test Reason : CP ADMIT Blood Pressure : / mmHG Vent. Rate : 104 BPM Atrial Rate : 104 BPM P-R Int : 192 ms QRS Dur : 088 ms QT Int : 334 ms P-R-T Axes : 071 072 084 degrees QTc Int : 439 ms Sinus tachycardia Possible Left atrial enlargement ST & T wave abnormality, consider lateral ischemia Abnormal ECG Confirmed by VERO ROCKWELL, JOSSY ([id number]), features editor JOSESITO FIELDS ([id number]) on 04/21/2023 12:48:45 PM Referred By: Johann Martin Confirmed By:JOSSY PHAM MD
[2023-04-21 06:30] LABS: Absolute Lymphocyte Count 0.75 X10^3/uL (0.83-4.51); Absolute Neutrophil Count 7.9 X10^3/uL (2.0-7.7); Basophil# 0.05 X10^3/uL; Basophil% 0.5 % (0-1); Eosinophil# 0.02 X10^3/uL; Eosinophils% 0.2 % (0-5); Hematocrit 26.8 % (40-54); Hemoglobin 8.6 g/dL (13.0-16.5); Lymphocyte # 0.75 X10^3/ul (0.83-4.51); Lymphocyte % 8.2 % (19-41); Mean Corp Hgb Conc 32.1 g/dL (32-36); Mean Corpuscular Hgb 27.8 pg (27.0-32.0); Mean Corpuscular Volume 86.7 fL (80-94); Mean Platelet Vol. 12.5 fl (6.2-12.0); Monocyte% 4.4 % (0-10); NRBC Flagged by Analyzer 0 % (0-5); Neutrophil # 7.88 X10^3/uL (2.7-7.7); Neutrophil % 86.3 % (47-70); Platelet Count 211 K/mm3 (150-450); RBC Distribution Width SD 40.9 fl (35.1-43.9); Red Blood Count 3.09 M/mm3 (4.6-6.2); White Blood Count 9.1 K/mm3 (4.4-11.0)
[2023-04-21 06:55] LABS: Bedside Glucose 130 mg/dL (74-106)
[2023-04-21 07:13] LABS: ALB/GLOB Ratio 0.8 RATIO (0.9-2.4); AST(SGOT) 39 U/L (15-37); Alanine Aminotransfer ALT/SGPT 17 U/L (16-61); Albumin, Serum 2.7 g/dL (3.2-5.0); Alkaline Phosphatase 93 U/L (45-117); Anion Gap 3 (5-15); BUN 44 mg/dL (7-18); BUN/Creat Ratio 32.4 RATIO (10-20); Calcium,Total 8.6 mg/dL (8.5-10.1); Chloride 107 mmol/L (98-107); Cholesterol 137 mg/dL (200); Creatinine, Serum 1.36 mg/dL (0.70-1.30); EST Glomerular Filtration Rate 53 mL/min (>60); Est Glom Filt Rate - Afr Amer 65 mL/min (>60); Estimated Creatinine Clearance 43.24 ml/min; Globulin 3.2 g/dL (2.2-4.2); Glucose 144 mg/dL (74-106); High Density Lipoprotein 41 mg/dL; Potassium 5.8 mmol/L (3.5-5.1); Protein, Total 5.9 g/dL (6.4-8.2); Sodium Level 138 mmol/L (136-145); T4 Free Direct 1.09 ng/dL (0.76-1.46); Thyroid Stim Hormone (TSH) 1.72 uIU/mL (0.358-3.74); Triglycerides 44 mg/dL; Very Low Density Lipoprotein 9 mg/dL (5-40)
[2023-04-21 07:29] LABS: Troponin-I HS 4594 pg/mL (3.0-78.0)
--- NOTE | 2023-04-21 07:34 | NURSING ---
Pts rn Fabio aware of critical troponin of 4594 at this time.
--- NOTE | 2023-04-21 07:38 | PN.HOSP_ITS ---
Reason for Visit Reason for Visit: Diagnoses Unstable angina (04/21/23) Subjective Subjective Patient is an 82-year-old male with with history of coronary artery disease with previous CABG paroxysmal A-fib hypertension diabetes dyslipidemia who presented with chest pain. Was found to have elevated troponin consistent with acute non- STEMI admitted to monitored bed for further management Objective Data Objective Data Vital Signs: Vital Signs Temp Pulse Resp BP Pulse Ox O2 Del Method O2 Flow Rate 97.7 F L 95 18 156/57 H 99 Room Air 3 04/21/23 03:25 04/21/23 06:02 04/21/23 03:25 04/21/23 06:02 04/21/23 03:48 04/21/23 03:52 04/21/23 03:48 Oxygen Flow Rate (L/min) 3 Oxygen Delivery Method Room Air Weight: 78.789 kg Body Mass Index (BMI) 24.8 Intake & Output: Intake and Output for Last 24 Hours 04/19/23 04/20/23 04/21/23 23:59 23:59 23:59 Intake Total 0 / 0 Output Total 400 / 400 Balance -400 / -400 Lab / Micro Data 04/21/23 05:25 04/21/23 05:25 Labs: Laboratory Results - last 24 hr 04/20/23 22:36: WBC 7.9, RBC 3.34 L, Hgb 9.1 L, Hct 29.1 L, MCV 87.1, MCH 27.2, MCHC 31.3 L, RDW Std Deviation 41.4, RDW Coeff of Ash 13.1, Plt Count 191, MPV 12.4 H, Immature Gran % (Auto) 0.300, Neut % (Auto) 71.9 H, Lymph % (Auto) 17.1 L, [place] % (Auto) 6.9, Eos % (Auto) 2.9, Baso % (Auto) 0.9, Absolute Neuts (auto) 5.7, Absolute Lymphs (auto) 1.34, Nucleated RBC % 0, PT 14.1, INR 1.1, APTT 32.4, Sodium 139, Potassium 5.0, Chloride 106, Carbon Dioxide 26.0, Anion Gap 7, BUN 47 H, Creatinine 1.44 H, Estim Creat Clear Calc 40.84, Est GFR (MDRD) Af Amer 60, Est GFR (MDRD) Non-Af 50 L, BUN/Creatinine Ratio 32.6 H, Glucose 162 H, Calcium 9.1, Troponin I High Sens 10, B-Natriuretic Peptide 228.1 H 04/21/23 01:26: Magnesium 2.2, Troponin I High Sens 545 H* 04/21/23 05:25: WBC 9.1, RBC 3.09 L, Hgb 8.6 L, Hct 26.8 L, MCV 86.7, MCH 27.8, MCHC 32.1, RDW Std Deviation 40.9, RDW Coeff of Ash 13.0, Plt Count 211, MPV 12.5 H, Immature Gran % (Auto) 0.400, Neut % (Auto) 86.3 H, Lymph % (Auto) 8.2 L , [place] % (Auto) 4.4, Eos % (Auto) 0.2, Baso % (Auto) 0.5, Absolute Neuts (auto) 7.9 H, Absolute Lymphs (auto) 0.75 L, Nucleated RBC % 0, Sodium 138, Potassium 5.8 H, Chloride 107, Carbon Dioxide 28.0, Anion Gap 3 L, BUN 44 H, Creatinine 1.36 H, Estim Creat Clear Calc 43.24, Est GFR (MDRD) Af Amer 65, Est GFR (MDRD) Non-Af 53 L, BUN/Creatinine Ratio 32.4 H, Glucose 144 H, Calcium 8.6, Total Bilirubin 0.40, AST 39 H, ALT 17, Alkaline Phosphatase 93, Troponin I High Sens 4594 H*, Total Protein 5.9 L, Albumin 2.7 L, Globulin 3.2, Albumin/Globulin Ratio 0.8 L, Triglycerides 44, Cholesterol 137, LDL Cholesterol 87, VLDL Cholesterol 9, HDL Cholesterol 41, TSH 1.72, Free T4 1.09 04/21/23 06:09: POC Glucose 130 H Radiography Diagnostic Testing: Radiology Impression Chest X-Ray 04/20/23 22:44 IMPRESSION: Chronic right pleural effusion. Interval development of increasing interstitial markings suggesting mild edema. Trace left effusion and/or scarring. Electronically Signed: Liliam Estes MD at 0:06 EDT , Rhythm Strip Rhythm Strip: Sinus Rhythm Rate: 95 Ectopy: None Physical Exam Narrative GENERAL: cooperative HEENT: Atraumatic; normocephalic EYES; Anicteric, Normal Conjunctiva NECK; supple, normal thyroid, RESPIRATORY: Diminished to auscultation CARDIOVASCULAR: Regular S1 S2, GI: soft, normoactive bowel sounds, : No Renal angle tenderness; EXTREMITIES: No edema, no clubbing, MUSCULOSKELETAL: no muscle wasting NEURO: Awake; no lateralizing signs. SKIN: No Rash PSYCH; Flat affect Assessment & Plan Assessment/Plan (1) Unstable angina: PLAN: Plan Patient is an 82-year-old male with with history of coronary artery disease with previous CABG paroxysmal A-fib hypertension diabetes dyslipidemia who presented with chest pain. Was found to have elevated troponin consistent with acute non-STEMI admitted to monitored bed for further management 1. Acute non-STEMI ? Patient admitted to a monitored bed treatment initiated per protocol with heparin, antiplatelet, beta-blockers as well as statin. Consultation placed to cardiology. Patient was kept n.p.o. for possible left heart catheterization ? Case discussed with Dr. Medina patient not a candidate for intervention given his advanced malignancy patient would not be able to tolerate dual antiplatelet therapy. This has been explained to patient he will be managed with medical therapy for now 2. Acute congestive heart failure (new onset) ? Echo ordered for assessment. Patient was placed on diuretics fluid restriction strict input and output and daily weight 3. Coronary artery disease ? With previous CABG 4. Paroxysmal A-fib ? Rate controlled on beta-blockers 5. Dyslipidemia -Patient is on statin therapy, continued at home dose 6. BPH ? Patient is on tamsulosin 7. 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 Valvular heart disease ? 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 Anemia - Secondary to chronic disorder monitoring H&H and transfuse if patient becomes symptomatic or hemoglobin falls below 7 10. Hypothyroidism - Patient is on levothyroxine home dose continued 11. Anemia - Secondary to chronic disorder as well as anemia of malignancy monitoring H&H and transfuse if patient becomes symptomatic or hemoglobin falls below 7 12. DVT prophylaxis ? Patient is on heparin Time spent in the patient's overall evaluation,decision-making process, review of diagnostic data, adjustment of management, discussion with other providers, nursing nursing and ancillary staff involved in patient's care documentation, 50 minutes Charges/Coding Visit Charges Inpatient E&M: 35072 Subs Hosp L3
[2023-04-21 09:25] LABS: Partial Thromboplast Time 78.7 Seconds (24.1-36.2)
[2023-04-21] MEDS: Aspirin E.C. 81 MG Tablet PO (10:01)
[2023-04-21] MEDS: Metoprolol Tartrate 50 MG Tablet PO ×2 (10:01→21:38)
[2023-04-21] MEDS: Multivitamins,Therapeutic Tablet 1 TABLET PO (11:59)
[2023-04-21] MEDS: Atorvastatin Calcium 80 MG Tablet PO (11:59)
[2023-04-21] MEDS: Furosemide 40 MG/4 ML Vial IV ×2 (11:59→18:13)
[2023-04-21 12:28] LABS: Bedside Glucose 111 mg/dL (74-106)
--- NOTE | 2023-04-21 15:40 | CASEMGMT ---
Addendum entered and electronically signed by Savana Wang RN 04/21/23 17:30: SW notified that pt would like to receive the living will document and may want to complete. Rick Wang RN CM Original Note: MORGAN BECERRIL Discharge Planning Assessment: Face to Face with patient for initial transition planning/care coordination assessment. MORGAN BECERRIL introduced self and role at [facility], pt alert, oriented, voices understanding and is agreeable to participating in assessment. Care providers, pharmacy, and demographics verified. Admitting dx: NSTEMI PCP: Omar Specialists: Veronica (oncologist) Preferred Pharmacy: [facility] Insurance: [employer] Prescription Benefit: yes Living Will/HPOA: no living will, HPOA Natacha LNOK: Natacha Living Arrangements: Pt lives with his and disabled adult son in a ranch with basement (son lives in basement) and one small step to enter. Pt states he is independent at baseline with all ADLs including self care and household tasks. 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 Pt also has been mowing his large yard. Pt states his younger son will be able assist with mowing and pt states he feels he will have to quit his maintenance job. Transportation: pt and his spouse drive DME: shower chair, grab bars, pulse oximeter, glucometer and supplies. Pt has a PEG tube which he and his manage. He uses Ensure four times a day as bolus feeds and then drinks ensure in between also. Pt states he is able to drink liquids but is not able to eat solid foods d/t his cancer. HHC: yes but does not recall the provider SNF: none Plan: Return home. Pt declined home health. This MORGAN BECERRIL was notified by [facility] that a referral had been received by them from Dr. Martin. This MORGAN BECERRIL discussed this referral with pt including what palliative care is and how the process works to enroll. Pt expressed understanding and is interested in the program. Will notify [facility] when pt is discharged. Rick Wang RN CM
[2023-04-21 16:08] LABS: Partial Thromboplast Time 52.5 Seconds (24.1-36.2)
[2023-04-21 16:43] LABS: Bedside Glucose 141 mg/dL (74-106)
--- NOTE | 2023-04-21 16:55 | CON.PCM.CA_ITS ---
Assessment & Plan Assessment/Plan (1) NSTEMI (non-ST elevated myocardial infarction): PLAN: He presents with a non-ST elevation myocardial infarction at this time. My suspicion is that this may be demand ischemia. His hemoglobin is low and he is undergoing a fair amount of stress. He has been having evidence of iron deficiency anemia and at this time with his overall prognosis regarding his metastatic carcinoma I do not think that an invasive approach would be warranted. Putting him on aspirin and clopidogrel or Brilinta may result in more bleeding. His ejection fraction was assessed with the echocardiogram and is noted to be normal and my recommendation at this time will be to pursue medical management. * Would recommend beta-ap * Nitrates * Low-dose aspirin only. (2) Acute CHF: PLAN: He did present with shortness of breath and was noted to have an elevated natruretic peptide which was likely secondary to diastolic dysfunction. * Gentle and cautious diuresis will be advocated. (3) S/P CABG x 1: PLAN: He is status post coronary artery bypass surgery with a saphenous vein graft to the posterior descending artery. His inferior wall does not appear to be that hypokinetic on the echocardiogram and the plan to be to continue to manage him medically. (4) History of aortic valve replacement with bioprosthetic valve: PLAN: He is status post aortic valve replacement his echocardiogram demonstrated preserved function and the mean gradient across the bioprosthetic aortic valve was 6 mmHg. We will continue to monitor this. He does not need anticoagulation. (5) History of mitral valve repair: PLAN: He is status post mitral valve repair this appears to be stable at this time. (6) Hypertension: PLAN: His blood pressure is stable and I would not recommend that we make any changes with regard to the above. (7) Hyperlipidemia: PLAN: We will continue with aggressive risk factor modification (8) Atrial fibrillation, chronic: PLAN: He is in sinus rhythm at this time with no evidence of atrial fibrillation. He is not a candidate for anticoagulation. Overall I think that his prognosis is guarded and there are no plans to pursue any invasive therapy. This has been explained to him and also discussed with hospitalist and with input from the oncologist. Thank you for allowing me to participate in the care of your patient. Please don't hesitate to call if any issues arise. HPI Consult Data Date of Consult: 04/21/23 HPI Narrative HPI Narrative: KYLER SINGH, is a 82 M who presents to the emergency room complaining of left-sided chest discomfort. He does have a history of valvular heart disease status post aortic valve replacement and mitral valve repair and a single saphenous vein graft bypass remotely. He also has a history of paroxysmal atrial fibrillation and chronic anemia in addition to diabetes and hypertension. He has recently been diagnosed with stage IV adenocarcinoma of the distal esophagus and GE junction with possible metastases to the liver as well as the bone in the spine. He recently had a percutaneous gastrostomy tube placed and is being seen by the oncologists for further evaluation as well as palliative care. Indeed he was seen by them just a few days ago and then presented to the emergency room complaining of chest tightness across his chest and radiating down his left extremity. His oral intake has also not been optimal and he has been weak. In the emergency room he was noted to have an EKG demonstrating lateral ST depressions as well as an elevated troponin and an elevated blood pressure. Cardiology was called from the ED to see whether he can be appropriately triaged to this institution. He was put on Nitropaste and started on intravenous heparin. He is currently pain-free. He denies any dizziness or diaphoresis near syncope or syncope he has been anemic with his hemoglobin running between 8 and 9. He has been on aspirin. Indeed he was taking higher doses of aspirin previously. His EKG improved on admission. [facility] Medical History Anemia Arthritis Atherosclerotic heart disease of [place] coronary artery without angina pectoris (07/14/16) Atrial fibrillation, chronic Chronic kidney disease, stage 3 Diabetes mellitus, type II Dysphagia Family history of colon cancer Former smoker High cholesterol History of aortic stenosis History of pleural effusion Hyperlipidemia Hypertension Leg cramps Loss of hearing Metastasis to liver Metastatic adenocarcinoma Nonrheumatic mitral valve regurgitation Prostate disease Thyroid disease Wears dentures Wears hearing aid Home Medications tamsulosin 0.4 mg capsule 0.4 mg PO QHS urinary flow 11/15/16 [History Last Ta denice Unknown] furosemide 40 mg tablet 40 mg PO DAILY #90 tabs 10/04/17 [Rx Last Taken 04/16/23] multivitamin 1 cap PO DAILY supplement 05/10/21 [History Last Taken Unknown] metoprolol tartrate 50 mg tablet 50 mg PO BID #180 tabs 10/24/22 [Rx Last Taken 04/20/23] atorvastatin 80 mg tablet 80 mg PO QDAY #90 tabs 11/21/22 [Rx Last Taken 04/20/23] aspirin 81 mg tablet,delayed release (Adult Low Dose Aspirin) 81 mg PO BID heart health 04/21/23 [History Last Taken 04/20/23] Allergy/AdvReac Type Severity Reaction Status Date / Time No Known Allergies Allergy Verified 04/20/23 08:40 Family History Brother Colon cancer Mother No problems noted. Father No problems noted. 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) Social History Smoking Status: Never smoker second hand exposure: No alcohol intake: never substance use type: does not use caffeine: No what type of physical activity do you participate in: none frequency: does not exercise ROS Constitutional Constitutional: Denies fever(s) or weight loss Eyes Eyes: Reports systems reviewed and no addt'l complaints, except as documented ENT HEENT: Reports systems reviewed and no addt'l complaints, except as documented Cardiovascular Cardiovascular: Reports chest pain at rest; Denies chest pain with activity, dyspnea at rest, dyspnea on exertion, edema, palpitations or paroxysmal nocturnal dyspnea Respiratory/Chest Respiratory/Chest: Denies dyspnea on exertion, productive cough, shortness of breath at rest or shortness of breath with exertion Gastrointestinal Gastrointestinal: Denies change in bowel habits, nausea, vomiting or weight changes Genitourinary Genitourinary: Denies difficulty urinating Musculoskeletal Musculoskeletal: Denies joint stiffness or muscle weakness Integumentary Integumentary: Denies lesions Neurologic Neurologic: Denies dizziness or syncope Psychiatric Psychiatric: Denies anxiety Endocrine Endocrinology: Denies excessive sweating or fatigue Hematologic/Lymphatic Hematologic/Lymphatic: Denies anemia Allergic/Immunologic Allergic/Immunologic: Denies seasonal rhinorrhea Risk Stratification Risk Stratification Applicable: Yes Age >/= 65: Yes >/= 3 CAD Risk Factors (HTN, HLD, DM, family hx of CAD, or current smoker): No Aspirin Use in the Past 7 Days: Yes Severe Angina (>/= episodes in 24 hours): Yes EKG ST Changes >/= 0.5mm: Yes Positive Cardiac Marker: Yes DIANE Risk Stratification Score: 5 DIANE % Risk: 25% Risk Objective Data Vital Signs: Vital Signs Temp Pulse Resp BP Pulse Ox O2 Del Method O2 Flow Rate 97.3 F L 75 18 127/39 H 95 Room Air 2 04/21/23 15:25 04/21/23 15:25 04/21/23 15:25 04/21/23 15:25 04/21/23 15:25 04/21/23 16:31 04/21/23 07:55 Oxygen Flow Rate (L/min) 2 Oxygen Delivery Method Room Air Weight: 173 lb 11.2 oz Body Mass Index (BMI) 24.8 Intake & Output: Intake and Output for Last 24 Hours 04/19/23 04/20/23 04/21/23 23:59 23:59 23:59 Intake Total 373.67 / 373.67 Output Total 400 / 400 Balance -26.33 / -26.33 Lab / Micro Data 04/21/23 05:25 04/21/23 05:25 Labs: Laboratory Results - last 24 hr 04/20/23 22:36: WBC 7.9, RBC 3.34 L, Hgb 9.1 L, Hct 29.1 L, MCV 87.1, MCH 27.2, MCHC 31.3 L, RDW Std Deviation 41.4, RDW Coeff of Ash 13.1, Plt Count 191, MPV 12.4 H, Immature Gran % (Auto) 0.300, Neut % (Auto) 71.9 H, Lymph % (Auto) 17.1 L, [place] % (Auto) 6.9, Eos % (Auto) 2.9, Baso % (Auto) 0.9, Absolute Neuts (auto) 5.7, Absolute Lymphs (auto) 1.34, Nucleated RBC % 0, PT 14.1, INR 1.1, APTT 32.4, Sodium 139, Potassium 5.0, Chloride 106, Carbon Dioxide 26.0, Anion Gap 7, BUN 47 H, Creatinine 1.44 H, Estim Creat Clear Calc 40.84, Est GFR (MDRD) Af Amer 60, Est GFR (MDRD) Non-Af 50 L, BUN/Creatinine Ratio 32.6 H, Glucose 162 H, Calcium 9.1, Troponin I High Sens 10, B-Natriuretic Peptide 228.1 H 04/21/23 01:26: Magnesium 2.2, Troponin I High Sens 545 H* 04/21/23 05:25: WBC 9.1, RBC 3.09 L, Hgb 8.6 L, Hct 26.8 L, MCV 86.7, MCH 27.8, MCHC 32.1, RDW Std Deviation 40.9, RDW Coeff of Ash 13.0, Plt Count 211, MPV 12.5 H, Immature Gran % (Auto) 0.400, Neut % (Auto) 86.3 H, Lymph % (Auto) 8.2 L , [place] % (Auto) 4.4, Eos % (Auto) 0.2, Baso % (Auto) 0.5, Absolute Neuts (auto) 7.9 H, Absolute Lymphs (auto) 0.75 L, Nucleated RBC % 0, Sodium 138, Potassium 5.8 H, Chloride 107, Carbon Dioxide 28.0, Anion Gap 3 L, BUN 44 H, Creatinine 1.36 H, Estim Creat Clear Calc 43.24, Est GFR (MDRD) Af Amer 65, Est GFR (MDRD) Non-Af 53 L, BUN/Creatinine Ratio 32.4 H, Glucose 144 H, Calcium 8.6, Total Bilirubin 0.40, AST 39 H, ALT 17, Alkaline Phosphatase 93, Troponin I High Sens 4594 H*, Total Protein 5.9 L, Albumin 2.7 L, Globulin 3.2, Albumin/Globulin Ratio 0.8 L, Triglycerides 44, Cholesterol 137, LDL Cholesterol 87, VLDL Cholesterol 9, HDL Cholesterol 41, TSH 1.72, Free T4 1.09 04/21/23 06:09: POC Glucose 130 H 04/21/23 08:40: APTT 78.7 H 04/21/23 11:58: POC Glucose 111 H 04/21/23 15:49: APTT 52.5 H 04/21/23 16:15: POC Glucose 141 H Rhythm Strip Rhythm Strip: Sinus Rhythm Rate: 95 Ectopy: None Cardiology Labs/Tests 04/20/23 22:36: WBC 7.9, RBC 3.34 L, Hgb 9.1 L, Hct 29.1 L, MCV 87.1, MCH 27.2, MCHC 31.3 L, Plt Count 191, MPV 12.4 H, Immature Gran % (Auto) 0.300, Neut % (Auto) 71.9 H, Lymph % (Auto) 17.1 L, [place] % (Auto) 6.9, Eos % (Auto) 2.9, Baso % (Auto) 0.9, Absolute Neuts (auto) 5.7, Nucleated RBC % 0, PT 14.1, INR 1.1, APTT 32.4, Sodium 139, Potassium 5.0, Chloride 106, Carbon Dioxide 26.0, Anion Gap 7, BUN 47 H, Creatinine 1.44 H, Est GFR (MDRD) Af Amer 60, Est GFR (MDRD) Non-Af 50 L, BUN/Creatinine Ratio 32.6 H, Glucose 162 H, Calcium 9.1, B- Natriuretic Peptide 228.1 H 04/21/23 01:26: Magnesium 2.2 04/21/23 05:25: WBC 9.1, RBC 3.09 L, Hgb 8.6 L, Hct 26.8 L, MCV 86.7, MCH 27.8, MCHC 32.1, Plt Count 211, MPV 12.5 H, Immature Gran % (Auto) 0.400, Neut % (Auto) 86.3 H, Lymph % (Auto) 8.2 L, [place] % (Auto) 4.4, Eos % (Auto) 0.2, Baso % (Auto) 0.5, Absolute Neuts (auto) 7.9 H, Nucleated RBC % 0, Sodium 138, Potassium 5.8 H, Chloride 107, Carbon Dioxide 28.0, Anion Gap 3 L, BUN 44 H, Creatinine 1.36 H, Est GFR (MDRD) Af Amer 65, Est GFR (MDRD) Non-Af 53 L, BUN/Creatinine Ratio 32.4 H, Glucose 144 H, Calcium 8.6, Total Bilirubin 0.40, Triglycerides 44, Cholesterol 137, LDL Cholesterol 87, VLDL Cholesterol 9, HDL Cholesterol 41 04/21/23 08:40: APTT 78.7 H 04/21/23 15:49: APTT 52.5 H Rhythm: EKG: ECHO: Stress Test: Cardiac Cath: PCI: CT Surgery: Holter monitor: EPS: PPM: CXR: Chest CT Scan: Radiography Diagnostic Testing: Radiology Impression Chest X-Ray 04/20/23 22:44 IMPRESSION: Chronic right pleural effusion. Interval development of increasing interstitial markings suggesting mild edema. Trace left effusion and/or scarring. Electronically Signed: Liliam Estes MD at 0:06 EDT Reading Location ID and State: [facility] / [place] Tel , Service support , Echocardiogram 04/21/23 03:07 Interpretation Summary Status post mitral valve repair with annuloplasty ring. Normal LV size. Left ventricular systolic function is normal. The estimated ejection fraction is 54 %. Moderate (2+) tricuspid valve insufficiency. Pulmonary artery systolic pressure is 50 mmHg. Mean aortic valve gradient 6 mmHg. The left atrium is mildly enlarged. Ordering Physician: Kassy Rosado Referring Physician: VADIM MARTINEZ Performed By: Nga Joshua RDCS
[2023-04-21] MEDS: 0.9% Saline Lock 10 ML Syringe IV (18:13)
[2023-04-21] MEDS: Tamsulosin HCl 0.4 MG Capsule PO (21:49)
[2023-04-21 22:50] LABS: Bedside Glucose 122 mg/dL (74-106)
[2023-04-21] MEDS: Heparin Injection (Vial) 5,000 UNIT/ML VIAL 5000 UNIT SC (23:49)
[2023-04-22 03:30] VITALS: BP 123/50; PULSE 86; RESP 16; TEMP 36.8; O2SAT 98
[2023-04-22 04:00] VITALS: BMI 24.7
[2023-04-22] MEDS: Levothyroxine 150 MCG Tablet PO (06:22)
[2023-04-22 06:27] LABS: Absolute Lymphocyte Count 1.14 X10^3/uL (0.83-4.51); Absolute Neutrophil Count 5.8 X10^3/uL (2.0-7.7); Basophil# 0.06 X10^3/uL; Basophil% 0.8 % (0-1); Eosinophil# 0.22 X10^3/uL; Eosinophils% 2.8 % (0-5); Hematocrit 26.1 % (40-54); Hemoglobin 8.1 g/dL (13.0-16.5); Lymphocyte # 1.14 X10^3/ul (0.83-4.51); Lymphocyte % 14.7 % (19-41); Mean Corpuscular Hgb 27.2 pg (27.0-32.0); Mean Corpuscular Volume 87.6 fL (80-94); Mean Platelet Vol. 12.4 fl (6.2-12.0); Monocyte# 0.56 X10^3/uL; Monocyte% 7.2 % (0-10); NRBC Flagged by Analyzer 0 % (0-5); Neutrophil # 5.76 X10^3/uL (2.7-7.7); Neutrophil % 74.1 % (47-70); Platelet Count 201 K/mm3 (150-450); RBC Distribution Width CV 13.2 % (11.6-14.6); RBC Distribution Width SD 41.7 fl (35.1-43.9); Red Blood Count 2.98 M/mm3 (4.6-6.2); White Blood Count 7.8 K/mm3 (4.4-11.0)
[2023-04-22 06:42] LABS: Bedside Glucose 123 mg/dL (74-106)
--- NOTE | 2023-04-22 07:09 | PCM.PN.HOSP ---
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) Other specified postprocedural states (04/21/23) Subjective Subjective Patient seen chest pain resolved plan is for patient to be assessed for possible discharge Objective Data Objective Data Vital Signs: Vital Signs Temp Pulse Resp BP Pulse Ox O2 Del Method O2 Flow Rate 98.3 F 86 16 123/50 H 98 Room Air 2 04/22/23 03:30 04/22/23 03:30 04/22/23 03:30 04/22/23 03:30 04/22/23 03:30 04/22/23 04:00 04/21/23 07:55 Oxygen Flow Rate (L/min) 2 Oxygen Delivery Method Room Air Weight: 78.5 kg Body Mass Index (BMI) 24.7 Intake & Output: Intake and Output for Last 24 Hours 04/20/23 04/21/23 04/22/23 23:59 23:59 23:59 Intake Total 390.67 / 590.67 400 / 400 Output Total 400 / 400 Balance -9.33 / 190.67 400 / 400 Medical Nutrition Assessment Dietitian: Malnutrition Criteria Met Start: 04/21/23 13:27 Freq: Status: Active Protocol: Document 04/21/23 14:37 CORAL (Rec: 04/21/23 14:37 CORAL [id number]) Nutrition Malnutrition Evidence of Malnutrition Exists Yes Malnutrition (severe): Chronic Evidenced By Suboptimal Energy Intake ( Severe),Weight Loss (Severe) Intake Problem Inadequate Oral Intake Etiology related to dysphagia Signs/Symptoms as evidenced by NPO except for liquids and PEG placed for primary source of nutrition as dysphagia worsens and pt no longer able to drink liquids Status Active Problem Clinical Problem Chronic Disease or Condition Related Malnutrition Etiology related to dysphagia and cancer making it difficult to consume adequate energy intake to meet est nutrition needs Signs/Symptoms as evidenced by unintended wt loss and 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 As ability to drink orally declines, rec Jevity 1.5 via PEG - 8 oz/240 ml Jevity 1.5 bolus feeds w/ 100 ml water before and after each bolus feeding 6x/day during waking hours to provide 2130 caridad/ 91 gm pro/ 2280 ml free water/day . Lab / Micro Data 04/22/23 06:03 04/22/23 06:03 Labs: Laboratory Results - last 24 hr 04/21/23 05:25: Sodium 138, Potassium 5.8 H, Chloride 107, Carbon Dioxide 28.0, Anion Gap 3 L, BUN 44 H, Creatinine 1.36 H, Estim Creat Clear Calc 43.24, Est GFR (MDRD) Af Amer 65, Est GFR (MDRD) Non-Af 53 L, BUN/Creatinine Ratio 32.4 H, Glucose 144 H, Calcium 8.6, Total Bilirubin 0.40, AST 39 H, ALT 17, Alkaline Phosphatase 93, Troponin I High Sens 4594 H*, Total Protein 5.9 L, Albumin 2.7 L, Globulin 3.2, Albumin/Globulin Ratio 0.8 L, Triglycerides 44, Cholesterol 137, LDL Cholesterol 87, VLDL Cholesterol 9, HDL Cholesterol 41, TSH 1.72, Free T4 1.09 04/21/23 08:40: APTT 78.7 H 04/21/23 11:58: POC Glucose 111 H 04/21/23 15:49: APTT 52.5 H 04/21/23 16:15: POC Glucose 141 H 04/21/23 21:47: POC Glucose 122 H 04/22/23 06:03: WBC 7.8, RBC 2.98 L, Hgb 8.1 L, Hct 26.1 L, MCV 87.6, MCH 27.2, MCHC 31.0 L, RDW Std Deviation 41.7, RDW Coeff of Ash 13.2, Plt Count 201, MPV 12.4 H, Immature Gran % (Auto) 0.400, Neut % (Auto) 74.1 H, Lymph % (Auto) 14.7 L, [place] % (Auto) 7.2, Eos % (Auto) 2.8, Baso % (Auto) 0.8, Absolute Neuts (auto) 5.8, Absolute Lymphs (auto) 1.14, Nucleated RBC % 0 04/22/23 06:20: POC Glucose 123 H Radiography Diagnostic Testing: Radiology Impression Echocardiogram 04/21/23 03:07 Interpretation Summary Status post mitral valve repair with annuloplasty ring. Normal LV size. Left ventricular systolic function is normal. The estimated ejection fraction is 54 %. Moderate (2+) tricuspid valve insufficiency. Pulmonary artery systolic pressure is 50 mmHg. Mean aortic valve gradient 6 mmHg. The left atrium is mildly enlarged. Ordering Physician: Kassy Rosado Referring Physician: VADIM MARTINEZ Performed By: Nga Joshua RDCS Rhythm Strip Rhythm Strip: Sinus Rhythm Rate: 95 Ectopy: None Physical Exam Narrative GENERAL: cooperative HEENT: Atraumatic; normocephalic EYES; Anicteric, Normal Conjunctiva NECK; supple, normal thyroid, RESPIRATORY: Diminished to auscultation CARDIOVASCULAR: Regular S1 S2, GI: soft, normoactive bowel sounds, : No Renal angle tenderness; EXTREMITIES: No edema, no clubbing, MUSCULOSKELETAL: no muscle wasting NEURO: Awake; no lateralizing signs. SKIN: No Rash PSYCH; Flat affect Assessment & Plan Assessment/Plan (1) Unstable angina: PLAN: Plan Patient is an 82-year-old male with with history of coronary artery disease with previous CABG paroxysmal A-fib hypertension diabetes dyslipidemia who presented with chest pain. Was found to have elevated troponin consistent with acute non-STEMI admitted to monitored bed for further management 1. Acute non-STEMI ? Patient admitted to a monitored bed treatment initiated per protocol with heparin, antiplatelet, beta-blockers as well as statin. Consultation placed to cardiology. Patient was kept n.p.o. for possible left heart catheterization ? Case discussed with Dr. Medina patient not a candidate for intervention given his advanced malignancy patient would not be able to tolerate dual antiplatelet therapy. This has been explained to patient he will be managed with medical therapy for now 2. Acute congestive heart failure (new onset) ? Echo ordered for assessment. Patient was placed on diuretics fluid restriction strict input and output and daily weight 3. Coronary artery disease ? With previous CABG 4. Paroxysmal A-fib ? Rate controlled on beta-blockers 5. Dyslipidemia -Patient is on statin therapy, continued at home dose 6. BPH ? Patient is on tamsulosin 7. 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 Valvular heart disease ? 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 Anemia - Secondary to chronic disorder monitoring H&H and transfuse if patient becomes symptomatic or hemoglobin falls below 7 10. Hypothyroidism - Patient is on levothyroxine home dose continued 11. Anemia - Secondary to chronic disorder as well as anemia of malignancy monitoring H&H and transfuse if patient becomes symptomatic or hemoglobin falls below 7 12. DVT prophylaxis ? Patient is on heparin Time spent in the patient's overall evaluation,decision-making process, review of diagnostic data, adjustment of management, discussion with other providers, nursing nursing and ancillary staff involved in patient's care documentation, 35 Charges/Coding Visit Charges Inpatient E&M: 12884 Subs Hosp L2
[2023-04-22 07:13] LABS: Anion Gap 4 (5-15); BUN 51 mg/dL (7-18); BUN/Creat Ratio 35.4 RATIO (10-20); Calcium,Total 8.7 mg/dL (8.5-10.1); Chloride 107 mmol/L (98-107); Creatinine, Serum 1.44 mg/dL (0.70-1.30); EST Glomerular Filtration Rate 50 mL/min (>60); Est Glom Filt Rate - Afr Amer 60 mL/min (>60); Estimated Creatinine Clearance 40.84 ml/min; Glucose 127 mg/dL (74-106); Magnesium 2.3 mg/dL (1.6-2.6); Potassium 4.7 mmol/L (3.5-5.1); Sodium Level 138 mmol/L (136-145)
[2023-04-22 07:58] VITALS: O2SAT 92
--- NOTE | 2023-04-22 08:22 | DS.PCM_ITS ---
Providers Date of Admission: 04/21/23 Date of Discharge: 04/22/23 Primary Care Physician: Dr. Vadim Nelson, Consultations 04/21/23 03:07 Consult: Cardiology Routine Consulting Provider: Wally Medina Reason for Consult: Chest pain, NSTEMI, Poss CHF Exacerbation EMERGENT Consult: No MD Notified: Yes Date Notified: 04/21/23 Time Notified: 02:31 Method of Notification: ED Physician Initiated Reason For Visit: CHEST PAIN, EKG CHANGES, ?CHF Diagnosis Discharge Diagnosis (1) Unstable angina: Status: Acute Code(s): I20.0 - Unstable angina Plan Patient is an 82-year-old male with with history of coronary artery disease with previous CABG paroxysmal A-fib hypertension diabetes dyslipidemia who presented with chest pain. Was found to have elevated troponin consistent with acute non- STEMI admitted to monitored bed for further management 1. Acute non-STEMI ? Patient admitted to a monitored bed treatment initiated per protocol with heparin, antiplatelet, beta-blockers as well as statin. Consultation placed to cardiology. Patient was kept n.p.o. for possible left heart catheterization ? Case discussed with Dr. Medina patient not a candidate for intervention given his advanced malignancy patient would not be able to tolerate dual antiplatelet therapy. This has been explained to patient he will be managed with medical therapy for now 2. Acute congestive heart failure (new onset) ? Echo ordered for assessment. Patient was placed on diuretics fluid restriction strict input and output and daily weight 3. Coronary artery disease ? With previous CABG 4. Paroxysmal A-fib ? Rate controlled on beta-blockers 5. Dyslipidemia -Patient is on statin therapy, continued at home dose 6. BPH ? Patient is on tamsulosin 7. 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 Valvular heart disease ? 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 Anemia - Secondary to chronic disorder monitoring H&H and transfuse if patient becomes symptomatic or hemoglobin falls below 7 10. Hypothyroidism - Patient is on levothyroxine home dose continued 11. Anemia - Secondary to chronic disorder as well as anemia of malignancy monitoring H&H and transfuse if patient becomes symptomatic or hemoglobin falls below 7 12. DVT prophylaxis ? Patient is on heparin Time spent in the patient's overall evaluation,decision-making process, review of diagnostic data, adjustment of management, discussion with other providers, nursing nursing and ancillary staff involved in patient's care documentation, 35 Medications at Discharge Home Medications tamsulosin 0.4 mg capsule 0.4 mg PO QHS urinary flow 11/15/16 furosemide 40 mg tablet 40 mg PO DAILY #90 tabs 10/04/17 multivitamin 1 cap PO DAILY supplement 05/10/21 metoprolol tartrate 50 mg tablet 50 mg PO BID #180 tabs 10/24/22 atorvastatin 80 mg tablet 80 mg PO QDAY #90 tabs 11/21/22 aspirin 81 mg tablet,delayed release (Adult Low Dose Aspirin) 81 mg PO BID heart health 04/21/23 isosorbide mononitrate 30 mg tablet,extended release 24 hr 30 mg PO DAILY #60 tabs 04/22/23 Hospital Course Summary of Care Provided Minutes Spent on Discharge: 35 Physical Exam Narrative GENERAL: cooperative HEENT: Atraumatic; normocephalic EYES; Anicteric, Normal Conjunctiva NECK; supple, normal thyroid, RESPIRATORY: Diminished to auscultation CARDIOVASCULAR: Regular S1 S2, GI: soft, normoactive bowel sounds, : No Renal angle tenderness; EXTREMITIES: No edema, no clubbing, MUSCULOSKELETAL: no muscle wasting NEURO: Awake; no lateralizing signs. SKIN: No Rash PSYCH; Flat affect Medical Records Data Medical Nutrition Assessment Dietitian: Malnutrition Criteria Met Start: 04/21/23 13:27 Freq: Status: Active Protocol: Document 04/21/23 14:37 CORAL (Rec: 04/21/23 14:37 CORAL [id number]) Nutrition Malnutrition Evidence of Malnutrition Exists Yes Malnutrition (severe): Chronic Evidenced By Suboptimal Energy Intake ( Severe),Weight Loss (Severe) Intake Problem Inadequate Oral Intake Etiology related to dysphagia Signs/Symptoms as evidenced by NPO except for liquids and PEG placed for primary source of nutrition as dysphagia worsens and pt no longer able to drink liquids Status Active Problem Clinical Problem Chronic Disease or Condition Related Malnutrition Etiology related to dysphagia and cancer making it difficult to consume adequate energy intake to meet est nutrition needs Signs/Symptoms as evidenced by unintended wt loss and 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 As ability to drink orally declines, rec Jevity 1.5 via PEG - 8 oz/240 ml Jevity 1.5 bolus feeds w/ 100 ml water before and after each bolus feeding 6x/day during waking hours to provide 2130 caridad/ 91 gm pro/ 2280 ml free water/day . Weight / BMI Weight Weight: 78.5 kg Body Mass Index (BMI) 24.7 ABG / Lab / Microbiology Data 04/22/23 06:03 04/22/23 06:03 Laboratory: Laboratory Results - last 24 hr 04/21/23 08:40: APTT 78.7 H 04/21/23 11:58: POC Glucose 111 H 04/21/23 15:49: APTT 52.5 H 04/21/23 16:15: POC Glucose 141 H 04/21/23 21:47: POC Glucose 122 H 04/22/23 06:03: WBC 7.8, RBC 2.98 L, Hgb 8.1 L, Hct 26.1 L, MCV 87.6, MCH 27.2, MCHC 31.0 L, RDW Std Deviation 41.7, RDW Coeff of Ash 13.2, Plt Count 201, MPV 12.4 H, Immature Gran % (Auto) 0.400, Neut % (Auto) 74.1 H, Lymph % (Auto) 14.7 L, [place] % (Auto) 7.2, Eos % (Auto) 2.8, Baso % (Auto) 0.8, Absolute Neuts (auto) 5.8, Absolute Lymphs (auto) 1.14, Nucleated RBC % 0, Sodium 138, Potassium 4.7, Chloride 107, Carbon Dioxide 27.0, Anion Gap 4 L, BUN 51 H, Creatinine 1.44 H, Estim Creat Clear Calc 40.84, Est GFR (MDRD) Af Amer 60, Est GFR (MDRD) Non-Af 50 L, BUN/Creatinine Ratio 35.4 H, Glucose 127 H, Calcium 8.7, Phosphorus 4.0, Magnesium 2.3 04/22/23 06:20: POC Glucose 123 H Radiography Diagnostic Testing: Radiology Impression Echocardiogram 04/21/23 03:07 Interpretation Summary Status post mitral valve repair with annuloplasty ring. Normal LV size. Left ventricular systolic function is normal. The estimated ejection fraction is 54 %. Moderate (2+) tricuspid valve insufficiency. Pulmonary artery systolic pressure is 50 mmHg. Mean aortic valve gradient 6 mmHg. The left atrium is mildly enlarged. Ordering Physician: Kassy Rosado Referring Physician: VADIM NELSON Performed By: Nga Joshua RDCS D/C Instructions Discharge Diet: No restrictions Discharge Activity: Return to Normal Activity Call your doctor if you observe: Fever of 101 or Higher, Shortness of breath, Fainting spells and Chest pain Meaningful Use Info Meaningful Use Diagnoses (Choose all that apply): AMI AMI/Post PCI/Angioplasty Aspirin given w/in 24hrs of arrival?: Yes ASA at discharge?: Yes Antiplatelet Therapy at Discharge:: Yes Statins at discharge?: Yes Roger/ARB at discharge?: No Reason Roger/ARB not ordered:: Not indicated Beta Aleta at discharge?: Yes Done w/ Acute MN measure.: Yes Documented LVEF (%): 54 Discharge Plan Admission Admit Date/Time: 04/21/23 00:44 Attending Provider: Gerald Escboar Primary Care Provider: Vadim Nelson Consulting Providers: Wally Medina; Kassy Rosado Discharge Orders/Prescriptions Prescriptions: New isosorbide mononitrate 30 mg Tablet Extended Release 24 Hr 30 mg PO DAILY Qty: 60 0RF Continued tamsulosin 0.4 MG capsule 0.4 mg PO QHS multivitamin Capsule 1 cap PO DAILY aspirin [Adult Low Dose Aspirin] 81 mg tablet,delayed release (DR/EC) 81 mg PO BID furosemide 40 MG tablet 40 mg PO DAILY Qty: 90 3RF metoprolol tartrate 50 mg tablet 50 mg PO BID Qty: 180 3RF atorvastatin 80 mg tablet 80 mg PO QDAY Qty: 90 3RF Referrals / Follow Up: Johann Martin MD [Med Staff - Active Staff] - In 1 Week Vadim Nelson DO [Primary Care Provider] - Within 2 Weeks Disposition Disposition (needs filled in before D/C Order can be placed): Home, Self Care Charges/Coding Visit Charges Inpatient E&M: 61058 Disch Hosp >30min
[2023-04-22 08:37] VITALS: BP 109/49; PULSE 88
[2023-04-22] MEDS: Furosemide 40 MG/4 ML Vial IV (08:37)
[2023-04-22] MEDS: Metoprolol Tartrate 50 MG Tablet PO (08:37)
[2023-04-22] MEDS: Heparin Injection (Vial) 5,000 UNIT/ML VIAL 5000 UNIT SC (08:37)
[2023-04-22] MEDS: Atorvastatin Calcium 80 MG Tablet PO (08:38)
[2023-04-22] MEDS: Multivitamins,Therapeutic Tablet 1 TABLET PO (08:38)
[2023-04-22] MEDS: Aspirin E.C. 81 MG Tablet PO (08:38)
[2023-04-22 09:30] VITALS: BP 109/49; PULSE 88; RESP 18; TEMP 36.9; O2SAT 97
== END 2023-04-22 11:38 | disposition home or self-care (01) | DRG 280 ==
LOC: ED 04-21 00:46 → PCU 04-21 01:08
PROVIDERS: Admitting Provider Family Medicine; Emergency Provider Emergency Medicine; PCP Family Medicine; Visit Provider Internal Medicine
DX: I21.4 Non-ST elevation (NSTEMI) myocardial infarction (principal); I50.31 Acute diastolic (congestive) heart failure; E43 Unspecified severe protein-calorie malnutrition; C79.51 Secondary malignant neoplasm of bone; C16.0 Malignant neoplasm of cardia; I13.0 Hypertensive heart and chronic kidney disease with heart failure and stage 1 through stage 4 chronic kidney disease, or unspecified chronic kidney disease; C78.7 Secondary malignant neoplasm of liver and intrahepatic bile duct; D63.1 Anemia in chronic kidney disease; D63.0 Anemia in neoplastic disease; I48.0 Paroxysmal atrial fibrillation; E11.22 Type 2 diabetes mellitus with diabetic chronic kidney disease; I25.110 Atherosclerotic heart disease of native coronary artery with unstable angina pectoris; N18.30 Chronic kidney disease, stage 3 unspecified; Z93.1 Gastrostomy status; E03.9 Hypothyroidism, unspecified; E78.5 Hyperlipidemia, unspecified; N40.0 Benign prostatic hyperplasia without lower urinary tract symptoms; Z68.24 Body mass index [BMI] 24.0-24.9, adult; Z95.2 Presence of prosthetic heart valve; Z79.82 Long term (current) use of aspirin; Z79.84 Long term (current) use of oral hypoglycemic drugs; Z79.899 Other long term (current) drug therapy; Z87.891 Personal history of nicotine dependence
CPT/HCPCS: 36415; 71046; 80048; 80053; 80061; 82607; 82728; 82962; 83540; 83550; 83735; 83880; 84100; 84439; 84443; 84484; 85025; 85045; 85610; 85730; 93005; 93306; 94668; 97161; 97165; 97802; 99285; J7030; A4216; J1940

== ENCOUNTER 2023-05-18 19:06 | Inpatient (IN) | payer MEDICARE, SELFPAY ==
[2023-05-18] VITALS (9 sets, daily range): BP systolic 142–157; BP diastolic 54–62; PULSE 110–117; RESP 18–29; TEMP 36.4–36.7; O2SAT 87–99; BMI 27.6
--- NOTE | 2023-05-18 19:41 | CT_ITS ---
STUDY: CTA CHEST REASON FOR EXAM: Male, 82 years old. Dyspnea RADIATION DOSAGE (If Supplied By Facility): CTDIvol = ( 9.67 ) mGy, DLP = ( 490.19 ) mGycm TECHNIQUE: The examination was performed with the intravenous administration of IV 100mL Isovue-370. Post-processing of the angiographic images was performed, with multiplanar reformation and 3D reconstruction. Individualized dose optimization techniques were used for this CT. COMPARISON: FINDINGS: Normal enhancement of the main pulmonary artery and right and left pulmonary arteries. Normal enhancement of the bilateral peripheral pulmonary arteries. There is no demonstrated pulmonary embolism. Normal thoracic aorta and visualized great vessels. There is no demonstrated aortic dissection. Normal heart and pericardium. Normal mediastinum. Normal hilar regions. Normal visualized trachea and bronchi. Patchy groundglass opacities are noted in both lungs suggesting bilateral pneumonia. There is diffuse interstitial thickening in both lungs suggesting pulmonary edema. Small bilateral pleural effusions. Pleural nodules in the upper part of the right and left major fissures measuring up to 1 cm suggesting metastatic lesions. Normal chest wall structures. There are degenerative changes of thoracic spine. Wall thickening in the distal esophagus, gastroesophageal junction extending to the gastric cardia consistent with neoplasm. There is ill-defined mass in the right lobe of the liver segment #4 measures 3.7 x 4.7 cm. Celiac lymphadenopathy measuring 4.[address]/CTA Chest W/WO Contrast IMPRESSION: Patchy groundglass opacities are noted in both lungs suggesting bilateral pneumonia. There is diffuse interstitial thickening in both lungs suggesting pulmonary edema. Small bilateral pleural effusions. Pleural nodules in the upper part of the right and left major fissures measuring up to 1 cm suggesting metastatic lesions. No demonstrated pulmonary embolism or arterial dissection. Wall thickening in the distal esophagus, gastroesophageal junction extending to the gastric cardia consistent with neoplasm. There is ill-defined mass in the right lobe of the liver segment #4 measures 3.7 x 4.7 cm. Celiac lymphadenopathy measuring 4.2 x 4.4 cm. Electronically Signed: Michelle Hickey MD at 21:22 EDT ,
[2023-05-18 19:53] LABS: Absolute Lymphocyte Count 0.41 X10^3/uL (0.83-4.51); Absolute Neutrophil Count 7.8 X10^3/uL (2.0-7.7); Basophil# 0.05 X10^3/uL; Basophil% 0.5 % (0-1); Eosinophil# 0.23 X10^3/uL; Eosinophils% 2.5 % (0-5); Hematocrit 24.3 % (40-54); Hemoglobin 7.4 g/dL (13.0-16.5); Lymphocyte # 0.41 X10^3/ul (0.83-4.51); Lymphocyte % 4.4 % (19-41); Mean Corp Hgb Conc 30.5 g/dL (32-36); Mean Corpuscular Hgb 26.4 pg (27.0-32.0); Mean Corpuscular Volume 86.8 fL (80-94); Mean Platelet Vol. 12.3 fl (6.2-12.0); Monocyte# 0.73 X10^3/uL; Monocyte% 7.9 % (0-10); NRBC Flagged by Analyzer 0 % (0-5); Neutrophil # 7.82 X10^3/uL (2.7-7.7); Neutrophil % 84.2 % (47-70); POSITIVE DIFFERENTIAL YES; Platelet Count 284 K/mm3 (150-450); RBC Distribution Width CV 15.7 % (11.6-14.6); RBC Distribution Width SD 49.4 fl (35.1-43.9); White Blood Count 9.3 K/mm3 (4.4-11.0)
[2023-05-18] MEDS: Ipratropium/Albuterol Sulfate 3 ML AMPUL.NEB INHALATION (19:53)
[2023-05-18] MEDS: Aspirin 81 MG TAB.CHEW 324 MG PO (19:53)
[2023-05-18] MEDS: Morphine 4 MG/ML Syringe IV (19:53)
[2023-05-18 19:55] LABS: Differential Indicated SCAN CRITERIA MET
[2023-05-18 20:03] LABS: International Normalized Ratio 1.1
[2023-05-18 20:04] LABS: Partial Thromboplast Time 32.2 Seconds (24.1-36.2)
[2023-05-18 20:21] LABS: Anion Gap 7 (5-15); BUN 50 mg/dL (7-18); BUN/Creat Ratio 31.4 RATIO (10-20); Calcium,Total 8.8 mg/dL (8.5-10.1); Chloride 97 mmol/L (98-107); Creatinine, Serum 1.59 mg/dL (0.70-1.30); EST Glomerular Filtration Rate 45 mL/min (>60); Est Glom Filt Rate - Afr Amer 54 mL/min (>60); Estimated Creatinine Clearance 35.82 ml/min; Glucose 320 mg/dL (74-106); Potassium 4.8 mmol/L (3.5-5.1); Sodium Level 132 mmol/L (136-145); Troponin-I HS (w/2H Reflex) 18 pg/mL (3.0-78.0)
[2023-05-18 20:36] LABS: Anisocytosis RARE; Platelet Estimate ADEQUATE (ADEQ); Red Cell Morphology NORM C+C NORMAL (NORM C&C)
[2023-05-18 21:49] LABS: Reflex Troponin-HS? (from REC) Y
--- NOTE | 2023-05-18 21:59 | ED.VIS.CHEST ---
HPI History of Present Illness Chief Complaint: Chest Pain Informant: patient Onset/Context/Timing Onset: Today and Hours (1-2) Activity at onset: sudden Timing: Continuous Quality: Positive for - (Throbbing) Location: Left Chest Worsened By: - (Laying down) Relieved By: - (Ambulation and activity) Associated Symptoms: Positive for Dyspnea, Lightheadedness, Acid Reflux and Palpitations; Negative for Nausea, Vomiting, Diaphoresis, Cough or Fever Narrative Narrative: Patient presents with chest pain that began approxione and 1/2 hours prior to arrival. Patient states it came on rather suddenly. Patient states it has been constant. Patient describes it as throbbing. Patient states it is over the left side of his chest and into his back. Patient states it is worse when he lays down and better when he is up walking. Patient admits to some shortness of breath and palpitations. Patient also admits to some lightheadedness and reflux. 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) Atrial fibrillation, chronic Chronic kidney disease, stage 3 Diabetes mellitus, type II Dysphagia Family history of colon cancer Former smoker High cholesterol History of aortic stenosis History of pleural effusion Hyperlipidemia Hypertension Leg cramps Loss of hearing Metastasis to liver Metastatic adenocarcinoma Nonrheumatic mitral valve regurgitation Prostate disease Thyroid disease Wears dentures Wears hearing aid Home Medications tamsulosin 0.4 mg capsule 0.4 mg PO QHS urinary flow 11/15/16 [History Last Taken Unknown] furosemide 40 mg tablet 40 mg PO DAILY #90 tabs 10/04/17 [Rx Last Taken 04/16/23] metoprolol tartrate 50 mg tablet 50 mg PO BID #180 tabs 10/24/22 [Rx Last Taken 04/20/23] atorvastatin 80 mg tablet 80 mg PO QDAY #90 tabs 11/21/22 [Rx Last Taken 04/20/23] aspirin 81 mg tablet,delayed release (Adult Low Dose Aspirin) 81 mg PO BID SOAK ([employer]) 04/21/23 [History Last Taken 04/20/23] ondansetron HCl 4 mg tablet 4 mg PO Q8H PRN nausea and vomiting #30 tabs 05/04/23 [Rx Last Taken Unknown] pantoprazole 40 mg granules delayed-release for susp in packet 40 mg PO DAILY #30 ea 05/17/23 [Rx Last Taken Unknown] isosorbide dinitrate 30 mg tablet 30 mg feeding tube BID 05/18/23 [History Last Taken Unknown] Allergy/AdvReac Type Severity Reaction Status Date / Time No Known Allergies Allergy Verified 05/18/23 19:09 Family History Brother Colon cancer Mother No problems noted. Father No problems noted. 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) Social History Smoking Status: Never smoker second hand exposure: No alcohol intake: never substance use type: does not use caffeine: No what type of physical activity do you participate in: none frequency: does not exercise ROS ROS ED Constitutional Constitutional ED: Denies chills or fever(s) Eyes Eyes: Denies blurry vision or change in vision ENT ENT ED: Reports rhinorrhea; Denies sore throat Cardiovascular Cardiovascular: Reports chest pain and palpitations Respiratory/Chest Respiratory/Chest: Reports dyspnea; Denies cough Gastrointestinal Gastrointestinal: Denies abdominal pain, nausea or vomiting Genitourinary Genitourinary ED: Denies dysuria or hematuria Musculoskeletal Musculoskeletal: Reports back pain; Denies neck pain Integumentary Denies abscess or rash Neurologic Neurologic: Denies headache(s) or weakness Allergic/Immunologic Allergic/Immunologic ED: Denies mouth swelling or urticaria EXAM Physical Exam Narrative Exam Narrative: Patient was hypoxic on my initial examination. When I walked in the room his oxygen saturation was 81% on room air. Patient was immediately placed on oxygen by nasal cannula. Const Vital Signs: 05/18/23 19:07 05/18/23 19:19 05/18/23 19:56 Temperature 98.0 F Temperature Source Temporal Pulse Rate 113 H Respiratory Rate 18 Respiratory Effort Normal Non-Labored Respiratory Pattern Blood Pressure 157/57 H Blood Pressure Mean 90 Pulse Ox 99 91 Oxygen Delivery Method Room Air Nasal Cannula Oxygen Flow Rate (L/min) 6 05/18/23 19:45 05/18/23 19:53 05/18/23 20:00 Temperature Temperature Source Pulse Rate 113 H 114 H Respiratory Rate 26 H 20 H Respiratory Effort Respiratory Pattern Tachypnea Blood Pressure 149/54 H Blood Pressure Mean 80 Pulse Ox 87 88 Oxygen Delivery Method Nasal Cannula Oxygen Flow Rate (L/min) 4 05/18/23 21:00 Temperature Temperature Source Pulse Rate 117 H Respiratory Rate 29 H Respiratory Effort Respiratory Pattern Blood Pressure 142/58 H Blood Pressure Mean 81 Pulse Ox 89 Oxygen Delivery Method Oxygen Flow Rate (L/min) Positive well nourished and well developed General Appearance ED: well developed HEENT normocephalic and atraumatic Eyes PERRL and EOMs intact bilaterally Neck supple and no JVD Chest Wall palpation of chest normal Resp Auscultation: diminished lung sounds Cardio regular rhythm Rate: tachycardic GI normal to inspection, nondistended, normoactive bowel sounds, soft to palpation, non-tender and non-distended Extremity normal to inspection General Extremety ED: Negative for edema or tenderness General Extremity: Negative for edema Neuro oriented x3, CN's II-XII intact bilaterally and no sensory deficits noted Sensorium / Orientation: awake and alert Motor Exam: strength 5/5 throughout Psych mental status grossly normal Heart Score History: Moderately Suspicious ECG: Nonspecific Repolarization Age: >/= 65 years Risk Factors: >/= 3 Risk Factors or History of CAD Troponin: </= Normal Limit Score: 6 MDM MDM MDM Narrative Medical decision making narrative: Differential diagnosis includes cardiac dysrhythmia, cardiac ischemia, pulmonary embolism, pneumonia, COPD, metastatic cancer, anemia, electrolyte abnormality, and viral infection. CBC will be obtained to assess for leukocytosis and anemia. Basic metabolic profile will be obtained to assess for electrolyte abnormality and renal function. High-sensitivity troponin will be obtained to assess for cardiac ischemia. 2-hour repeat high-sensitivity troponin will be obtained to assess for ongoing cardiac ischemia. PT with INR and PTT will be obtained to assess for coagulopathy. BNP will be obtained to assess for congestive heart failure. COVID-19 rapid antigen will be obtained to assess for COVID-19 infection. Influenza A and influenza B antigens will be obtained to assess for influenza infection. CTA of the chest will be obtained to assess for pulmonary embolism. Lab Data Attestation: I reviewed the patient's lab results. Lab results narrative: CBC was reviewed. There is a stable anemia with a hemoglobin of 7.4 hematocrit 24.3. These are consistent with prior results. PT with INR and PTT were reviewed and were within normal limits. Basic metabolic profile was reviewed. BUN was 50 and creatinine was 1.59. High-sensitivity troponin was reviewed and was normal at 18. BNP was reviewed and was elevated at 447.5. Labs: Laboratory Results - last 24 hr 05/18/23 05/18/23 19:45 21:52 WBC 9.3 RBC 2.80 L Hgb 7.4 L Hct 24.3 L MCV 86.8 MCH 26.4 L MCHC 30.5 L RDW Std Deviation 49.4 H RDW Coeff of Ash 15.7 H Plt Count 284 MPV 12.3 H Immature Gran % (Auto) 0.500 Neut % (Auto) 84.2 H Lymph % (Auto) 4.4 L [place] % (Auto) 7.9 Eos % (Auto) 2.5 Baso % (Auto) 0.5 Absolute Neuts (auto) 7.8 H Absolute Lymphs (auto) 0.41 L Nucleated RBC % 0 Differential Comment SEE COMMENT Platelet Estimate ADEQUATE RBC Morphology NORM C+C Anisocytosis RARE PT 14.0 INR 1.1 APTT 32.2 Sodium 132 L Potassium 4.8 Chloride 97 L Carbon Dioxide 28.0 Anion Gap 7 BUN 50 H Creatinine 1.59 H Estim Creat Clear Calc 35.82 Est GFR (MDRD) Af Amer 54 L Est GFR (MDRD) Non-Af 45 L BUN/Creatinine Ratio 31.4 H Glucose 320 H Calcium 8.8 Troponin I High Sens 18 234 H* B-Natriuretic Peptide 447.5 H Radiography CTA PE Study: No Evidence of PE and No Evidence of Dissection Diagnostic Testing: Clinical Impression(s) from Imaging Studies Chest CTA 05/18/23 19:41 IMPRESSION: Patchy groundglass opacities are noted in both lungs suggesting bilateral pneumonia. There is diffuse interstitial thickening in both lungs suggesting pulmonary edema. Small bilateral pleural effusions. Pleural nodules in the upper part of the right and left major fissures measuring up to 1 cm suggesting metastatic lesions. No demonstrated pulmonary embolism or arterial dissection. Wall thickening in the distal esophagus, gastroesophageal junction extending to the gastric cardia consistent with neoplasm. There is ill-defined mass in the right lobe of the liver segment #4 measures 3.7 x 4.7 cm. Celiac lymphadenopathy measuring 4.2 x 4.4 cm. Electronically Signed: Michelle Hickey MD at 21:22 EDT , ADDENDUM: 05/18/23 IMPRESSION: undefined CTA of the chest was obtained. There is no evidence of pulmonary embolism or aortic dissection. There are patchy groundglass opacities in both lungs suggesting bilateral pneumonia. There is diffuse interstitial thickening in both lungs suggesting pulmonary edema. There are small bilateral effusions noted. There is wall thickening of the distal esophagus gastroesophageal junction extending into the gastric cardia consistent with neoplasm. There is an ill-defined mass in the right lobe of the liver. There is celiac lymphadenopathy noted. This was interpreted by the radiologist and was also independently reviewed by myself. EKG Initial EKG: Interpretation: Sinus Tachycardia (110 with first-degree AV block) and Non-Specific ST Changes Comments: EKG was obtained. On my independent interpretation, it showed a sinus tachycardia with a rate of 110. NH interval was prolonged at 224 ms. QRS interval and QTc intervals were normal. [place] was normal. There is evidence of left ventricular hypertrophy with nonspecific ST-T wave changes. Prior EKG tracings: available for review Prior: Unchanged (04/21/2023) Management Discussion w/another healthcare provider: Hospitalist Treatment and Re-Evaluation :: Patient was given aspirin and a DuoNeb aerosol initially. Patient was given morphine initially. Patient had minimal relief with this. Patient was given a dose of Dilaudid. When the CT scan of the chest showed bilateral pneumonia and pulmonary edema, blood cultures were obtained, patient was started on Rocephin and Zithromax, and was also given a dose of Lasix. Patient is feeling better on reevaluation. Patient was advised of his findings. Patient was advised of the need for hospitalization. Patient understood and was agreeable with the plan. All questions were answered. Critical Care Time Critical Care Time: Yes Critical care time (excluding procedures): 30-74 minutes (36), Including time spent:, Discussing w/Patient &/or Family/Center Medical And Lab Director, Discussing w/Consultants, Arranging Admission or Transfer and Performing Direct Patient Care at Bedside Discharge Plan Dx/Rx/DC Orders Clinical Impression: Congestive heart failure, Hypoxia, Pneumonia Disposition Disposition: Acute Care Hospital [facility]
[2023-05-18] MEDS: HYDROmorphone 1 MG/ML Syringe 0.5 MG IV (22:03)
[2023-05-18 22:14] LABS: BNP,B-Type NATRIURETIC PEPTIDE 447.5 pg/mL (0-100)
[2023-05-18 22:29] LABS: Troponin-I HS 234 pg/mL (3.0-78.0)
[2023-05-18] MEDS: Furosemide 40 MG/4 ML Vial IV (22:47)
--- NOTE | 2023-05-18 23:20 | HP.PCM.HOS_ITS ---
HPI - General General Date of Admission: 05/18/23 Date of Service: 05/18/23 Chief Complaint: Chest pain/shortness of breath HPI Narrative KYLER SINGH, is a 82 M who presented to the emergency department at [facility] on 05/18/2023 with acute onset of chest pain that started about 30 minutes prior to arrival. It was associated with shortness of breath and has been constant since it started. He reported as throbbing and aching with radiation to his left arm and shoulder. He has a history of known coronary disease with previous bypass with saphenous vein to PDA. He is also had an aortic valve replacement and mitral valve repair. He had a recent admission here at the end of March with an exact similar presentation at which time he was diagnosed with an NSTEMI and evaluated by cardiology and deemed an appropriate for any aggressive invasive management due to his metastatic esophageal cancer and his risk of bleeding. He has chronic anemia. At that time he was placed on aspirin low-dose, nitrates, and a beta-ap and he was diuresed. He states that this episode is similar however his shortness of breath and chest pain are worse than they were previously. He also notes that he had considerable swellin g that is worsened over the last week. Initially his noted that it was just in his feet and ankles and now has progressed to just below his knees bilaterally and it is pitting in nature. He is having ongoing chest pain and I have asked that nitroglycerin be given. Vital signs on presentation showed temperature of 98.0, heart rate initially was 113, blood pressure 157/57, respiratory rate 18 and oxygen saturations were initially 99% on room air however he decompensated and was placed on 4 L nasal cannula due to an saturation of 87% and has been uptitrated to 6 L. His CBC shows a normal white count with a chronic anemia that is slightly lower and appears to be downtrending and normal platelets. Coags are normal. His chemistry panel shows hyponatremia however his blood sugar is elevated and this is pseudohyponatremia. He has an elevated BUN and serum creatinine at 50 and 1.59 respectively and this seems to be his baseline when compared to previous. His glucose was 320 which is markedly high for him and I suspect that the stress response. His initial troponin was 18 with a repeat of 234. BNP was 447.5. With his history of cancer a CTA was performed as there was concern he may have PE. Acute PE was not identified however he has new pulmonary nodules which appear to be metastatic and pulmonary edema with bilateral lower lobe compressive atelectasis due to small effusions. Wall thickening was also noted in the distal esophagus, GE junction that extended into the gastric cardia consistent with neoplasm and an ill-defined mass in the right lobe of the liver as well as celiac lymphadenopathy. [facility] Medical History Anemia Arthritis Atherosclerotic heart disease of [place] coronary artery without angina pectoris (07/14/16) Atrial fibrillation, chronic Chronic kidney disease, stage 3 Diabetes mellitus, type II Dysphagia Family history of colon cancer Former smoker High cholesterol History of aortic stenosis History of pleural effusion Hyperlipidemia Hypertension Leg cramps Loss of hearing Metastasis to liver Metastatic adenocarcinoma Nonrheumatic mitral valve regurgitation Prostate disease Thyroid disease Wears dentures Wears hearing aid Home Medications tamsulosin 0.4 mg capsule 0.4 mg PO QHS urinary flow 11/15/16 [History Last Taken Unknown] furosemide 40 mg tablet 40 mg PO DAILY #90 tabs 10/04/17 [Rx Last Taken 04/16/23] metoprolol tartrate 50 mg tablet 50 mg PO BID #180 tabs 10/24/22 [Rx Last Taken 04/20/23] atorvastatin 80 mg tablet 80 mg PO QDAY #90 tabs 11/21/22 [Rx Last Taken 04/20/23] aspirin 81 mg tablet,delayed release (Adult Low Dose Aspirin) 81 mg PO BID [facility] 04/21/23 [History Last Taken 04/20/23] ondansetron HCl 4 mg tablet 4 mg PO Q8H PRN nausea and vomiting #30 tabs 05/04/23 [Rx Last Taken Unknown] pantoprazole 40 mg granules delayed-release for susp in packet 40 mg PO DAILY #30 ea 05/17/23 [Rx Last Taken Unknown] isosorbide dinitrate 30 mg tablet 30 mg feeding tube BID 05/18/23 [History Last Taken Unknown] Allergy/AdvReac Type Severity Reaction Status Date / Time No Known Allergies Allergy Verified 05/18/23 19:09 Family History Brother Colon cancer Mother No problems noted. Father No problems noted. 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 Lisa Thornton DO) household members: spouse housing: house current occupational status: retired Smoking Status: Former smoker second hand exposure: No alcohol intake: never substance use type: does not use caffeine: No what type of physical activity do you participate in: none frequency: does not exercise ROS Constitutional Constitutional: Reports change in weight, fatigue and weakness; Denies anorexia, chills, fever(s), malaise, night sweats or other Eyes Eyes: Denies blurry vision, change in eye color, change in vision, discharge from eye(s), double vision, erythema, eye pain, loss of vision or other ENT HEENT: Denies abnormal hearing, dysphagia, ear pain, epistaxis, headache(s), hearing loss, nasal congestion, nasal discharge, post nasal drip, sinus pressure, sore throat or other Cardiovascular Cardiovascular: Reports chest pain, dyspnea on exertion and edema; Denies claudication, lightheadedness, orthopnea, palpitations, paroxysmal nocturnal dyspnea, rapid heart rate, syncope or other Respiratory/Chest Respiratory/Chest: Reports dyspnea, shortness of breath at rest and shortness of breath with exertion; Denies cough, excessive phlegm production, hemoptysis, productive cough, wheezing or other Gastrointestinal Gastrointestinal: Denies abdominal pain, coffee ground emesis, constipation, diarrhea, dyspepsia, hematemesis, hematochezia, loose stools, melena, nausea, vomiting or other Genitourinary Genitourinary: Denies burning urination, difficulty urinating, dysuria, hematuria, nocturia, urinary frequency, urinary hesitancy, urinary incontinence, urinary urgency or other Musculoskeletal Musculoskeletal: Reports back pain and other Details: Left shoulder and arm pain Neurologic Neurologic: Denies abnormal gait, abnormal speech, confusion, disequilibrium, dizziness, focal weakness, headache(s), numbness, paresthesias, seizure-like activity, seizures, syncope, tingling, tremor(s) or other Psychiatric Psychiatric: Denies anxiety, depression, homicidal ideation, suicidal ideation or other Endocrine Endocrinology: Denies change in body appearance, cold intolerance, excessive sweating, heat intolerance, polydipsia, polyuria or other Hematologic/Lymphatic Hematologic/Lymphatic: Denies anemia, easy bleeding, easy bruising, lymphadenopathy or other Allergic/Immunologic Allergic/Immunologic: Denies rhinitis, hives, eczemia, asthma or other Vital Signs Vital Signs Vital Signs: 05/18/23 19:07 05/18/23 19:19 05/18/23 19:56 Temperature 98.0 F Temperature Source Temporal Pulse Rate 113 H Respiratory Rate 18 Respiratory Effort Normal Non-Labored Respiratory Pattern Blood Pressure 157/57 H Blood Pressure Mean 90 Pulse Ox 99 91 Oxygen Delivery Method Room Air Nasal Cannula Oxygen Flow Rate (L/min) 6 05/18/23 19:45 05/18/23 19:53 05/18/23 20:00 Temperature Temperature Source Pulse Rate 113 H 114 H Respiratory Rate 26 H 20 H Respiratory Effort Respiratory Pattern Tachypnea Blood Pressure 149/54 H Blood Pressure Mean 80 Pulse Ox 87 88 Oxygen Delivery Method Nasal Cannula Oxygen Flow Rate (L/min) 4 05/18/23 21:00 05/18/23 22:00 05/18/23 23:00 Temperature Temperature Source Pulse Rate 117 H 110 H 115 H Respiratory Rate 29 H 25 H 25 H Respiratory Effort Respiratory Pattern Blood Pressure 142/58 H 156/55 H 154/62 H Blood Pressure Mean 81 83 87 Pulse Ox 89 92 93 Oxygen Delivery Method Oxygen Flow Rate (L/min) Weight Weight: 84.7 kg Body Mass Index (BMI) 27.6 Physical Exam Const alert, oriented x3 and average body habitus; Negative for no apparent distress or healthy appearing Constitutional Narrative: Elderly, white male, sitting up in bed, hard of hearing, at bedside, appears somewhat uncomfortable intermittently grabbing his chest but nontoxic, appears chronically ill General Appearance: cooperative HEENT normocephalic, head/scalp atraumatic and moist oral mucous membranes; Negative for hearing grossly normal bilaterally HEENT Narrative: Marked hearing loss, edentulous, mucous membranes are moist Eyes PERRL and EOMs intact bilaterally; Negative for conjunctivae normal Eyes Narrative: Conjunctive are significantly pale bilaterally, no scleral icterus Neck no lymphadenopathy and supple Neck Narrative: Trachea midline, no thyroid enlargement Resp Resp Narrative: Tachypneic, no signs of extremis, bilateral crackles from the bases to about skilled nursing up the lung valerio bilaterally Auscultation: crackles; Negative for rhonchi or wheezes Cardio regular rhythm, S1 normal heart sound, S2 normal heart sound, no murmurs, no rub, no gallops and no clicks; Negative for regular rate Cardio Narrative: Tachycardia GI normal to inspection, nondistended, normoactive bowel sounds, soft to palpation and non-tender GI Narrative: PEG in place Extremity Extremity Narrative: 2+ bilateral lower extremity pitting edema up to just below his knees, no clubbing or cyanosis Skin no wounds, skin turgor normal, no jaundice, no petechiae and no mottling Skin Narrative: Skin is pale, no wounds noted Neuro oriented x3, CN's II-XII intact bilaterally, moves all extremities and no focal motor deficits Speech: speech normal Psych Psych Narrative: Affect is flat and mood seems somewhat depressed but appropriate for the situation, eye contact is good Results Lab / Micro Data Attestation: I reviewed the patient's lab results. 05/18/23 19:45 05/18/23 19:45 Labs: Laboratory Results - last 24 hr 05/18/23 19:45: WBC 9.3, RBC 2.80 L, Hgb 7.4 L, Hct 24.3 L, MCV 86.8, MCH 26.4 L , MCHC 30.5 L, RDW Std Deviation 49.4 H, RDW Coeff of Ash 15.7 H, Plt Count 284, MPV 12.3 H, Immature Gran % (Auto) 0.500, Neut % (Auto) 84.2 H, Lymph % (Auto) 4.4 L, Ransom % (Auto) 7.9, Eos % (Auto) 2.5, Baso % (Auto) 0.5, Absolute Neuts (auto) 7.8 H, Absolute Lymphs (auto) 0.41 L, Nucleated RBC % 0, Differential Comment SEE COMMENT, Platelet Estimate ADEQUATE, RBC Morphology NORM C+C, Anisocytosis RARE, PT 14.0, INR 1.1, APTT 32.2, Sodium 132 L, Potassium 4.8, Chloride 97 L, Carbon Dioxide 28.0, Anion Gap 7, BUN 50 H, Creatinine 1.59 H, Estim Creat Clear Calc 35.82, Est GFR (MDRD) Af Amer 54 L, Est GFR (MDRD) Non-Af 45 L, BUN/Creatinine Ratio 31.4 H, Glucose 320 H, Calcium 8.8, Troponin I High Sens 18 05/18/23 21:52: Troponin I High Sens 234 H*, B-Natriuretic Peptide 447.5 H Radiology Impression Chest CTA 05/18/23 19:41 IMPRESSION: Patchy groundglass opacities are noted in both lungs suggesting bilateral pneumonia. There is diffuse interstitial thickening in both lungs suggesting pulmonary edema. Small bilateral pleural effusions. Pleural nodules in the upper part of the right and left major fissures measuring up to 1 cm suggesting metastatic lesions. No demonstrated pulmonary embolism or arterial dissection. Wall thickening in the distal esophagus, gastroesophageal junction extending to the gastric cardia consistent with neoplasm. There is ill-defined mass in the right lobe of the liver segment #4 measures 3.7 x 4.7 cm. Celiac lymphadenopathy measuring 4.2 x 4.4 cm. Electronically Signed: Michelle Hickey MD at 21:22 EDT , ADDENDUM: 05/18/23 1094 IMPRESSION: undefined Assessment & Plan Assessment/Plan (1) Hypoxia: (2) Congestive heart failure: (3) NSTEMI, initial episode of care: (4) Hyperglycemia: (5) Advanced directives, counseling/discussion: PLAN: Plan NSTEMI -Patient with recent admission and cardiology consultation to Dr. Medina from 04/21/2023 through 04/22/2023 for exact same issues -Troponins at that time were 10--> 545--> 4594 -Current troponin was 18--> 234 -Echo done on 04/21/2023 and patient was found to have an EF of 54% with moderate tricuspid valve insufficiency, pulmonary hypertension with a pulmonary systolic pressure of 50 mmHg and a mean aortic valve gradient of 6 mmHg. -Patient with remote history of aortic valve replacement and mitral valve repair along with a single saphenous vein graft bypass -Dr. Medina at that time given his metastatic esophageal carcinoma and his risk of bleeding placing him on dual antiplatelet therapy that medical management would be most appropriate and he was placed on a low-dose aspirin, nitrates, and a beta-ap. He has been compliant with these medications and indicated he has an appointment with him upcoming next week. -With this being recurrent of the same episode I discussed with the patient the previous recommendations with regards to his coronary disease and he indicated he is tired of having to come back and forth from the hospital for this and if we cannot pursue any aggressive management that he would like to talk to hospice -We will cycle his cardiac enzymes -Hold on repeat echocardiogram for now -Continue isosorbide -Continue low-dose aspirin -Continue statin -Add Ranexa -Continue metoprolol with 5 mg IV dose right now to help with his heart rate as I think if I can get his heart rate down it will help with his symptoms -Nitropaste -Current IV Dilaudid -We will hold on cardiology consultation for now given previous information and discussion with patient Acute CHF -Based on previous echocardiogram this is right-sided and diastolic however with above NSTEMI I suspect his ventricle is stiff causing acute heart failure -We will utilize Lasix 40 mg 3 times daily for now and hold home oral diuretics -Continue metoprolol -We will hold on repeat echocardiogram given 1 was done on 04/21/2023 with the above findings -Fluid restriction 1500 cc -Sodium restriction -Daily weights -Lower extremity Orger bandages DM-2 with hyperglycemia -Patient does have history of diabetes with his last hemoglobin A1c being 5.8 on 03/24/2023 -Has been diet controlled typically -I am questioning whether this is not a stress response -We will continue to follow and if blood sugars remain elevated may need to consider sliding scale -Also could consider Jardiance once stabilized to help with his heart failure Paroxysmal atrial fibrillation -Is in sinus rhythm at this time -Is not a candidate for anticoagulation due to bleeding risk -Continue metoprolol CAD/HTN/HPL/aortic valve disease/mitral valve disease -Status post CABG x1 to PDA with saphenous vein graft as well as aortic valve replacement with bioprosthetic valve and mitral valve repair -Continue blood pressure medicine to include isosorbide dinitrate and metoprolol -Continue atorvastatin Stage IV metastatic esophageal cancer -Stage IV distal esophageal adenocarcinoma -Patient undergoing palliative radiation--> I did let Dr. Velez know that he is hospitalized so he can have his radiation while he is admitted -Has 2-3 more radiations to go -Goal of radiation was to alleviate dysphagia and bleeding -Follows with medical oncology and sees Dr. Edwards -Next generation sequencing of the solid tumor panel was ordered to guide future systemic therapy however patient indicated to medical oncologist that he would not consent to chemotherapy -Palliative referral was made on 05/01/2023 however patient and family have not yet -We will discuss options with hospice tomorrow as patient is tired of having to come to the hospital for his cardiac issues which we cannot address due to his esophageal cancer which is known curative GERD -Continue PPI Chronic anemia secondary to iron deficiency -IV iron per oncology as an outpatient -Baseline hemoglobin appears to be between 8 and 9 however slowly trending down -Current hemoglobin 7.4 however patient appears to be volume overloaded -Repeat hemoglobin in a.m. and transfuse for anything less than 7 -Hopefully hemoglobin will go up with diuresis CKD stage IIIb -Baseline hemoglobin appears to be between 1.35 and 1.6 -Currently 1.59 -Continue to monitor with diuresis -Avoid nephrotoxins as able History of tobacco abuse -Remote DVT prophylaxis -Subcu Lovenox 40 daily CODE STATUS -DNR CCA with no intubation. - I had an extensive conversation with both the patient and his with regards to his metastatic esophageal cancer and his ongoing issues with coronary artery disease. The patient was very clear that he is frustrated having to come back to the hospital recurrently for his heart given the fact that we are unable to fix anything. His radiation is palliative and any chemotherapy would be palliative as well. We discussed his options with regards to continuing current management and ongoing aggressive care to extend life, completing radiation and being evaluated by palliative care and having a hospice discussion with hospice. The patient would like to talk to hospice however is not committed this time to go to hospice and would like to think about it after they talk to him. He would like to finish his radiation. Palliative care/hospice consult in place to have a hospice discussion and allow patient time to think about care. Greater than 20 minutes was spent on this conversation Charges/Coding Visit Charges Inpatient E&M: 49114 Init Hosp L3
[2023-05-19] VITALS (15 sets, daily range): BP systolic 118–161; BP diastolic 48–59; PULSE 87–119; RESP 16–24; TEMP 36.4–36.8; O2SAT 92–100; BMI 26.7
[2023-05-19] MEDS: Metoprolol Tartrate 5 MG/5 ML Vial IV (01:06)
[2023-05-19] MEDS: 0.9% Saline Lock 10 ML Syringe IV ×3 (01:07→17:06)
[2023-05-19] MEDS: Nitroglycerin Oint 1 INCH PACKET TD ×2 (02:06→15:13)
[2023-05-19 02:16] LABS: Absolute Lymphocyte Count 0.09 X10^3/uL (0.83-4.51); Absolute Neutrophil Count 12.9 X10^3/uL (2.0-7.7); Basophil# 0.04 X10^3/uL; Basophil% 0.3 % (0-1); Hematocrit 25.7 % (40-54); Hemoglobin 7.7 g/dL (13.0-16.5); Lymphocyte # 0.09 X10^3/ul (0.83-4.51); Lymphocyte % 0.7 % (19-41); Mean Corpuscular Hgb 26.7 pg (27.0-32.0); Mean Corpuscular Volume 89.2 fL (80-94); Mean Platelet Vol. 12.2 fl (6.2-12.0); Monocyte# 0.38 X10^3/uL; Monocyte% 2.8 % (0-10); NRBC Flagged by Analyzer 0 % (0-5); Neutrophil # 12.88 X10^3/uL (2.7-7.7); Neutrophil % 95.5 % (47-70); POSITIVE DIFFERENTIAL YES; Platelet Count 301 K/mm3 (150-450); RBC Distribution Width CV 15.9 % (11.6-14.6); RBC Distribution Width SD 50.4 fl (35.1-43.9); Red Blood Count 2.88 M/mm3 (4.6-6.2); White Blood Count 13.5 K/mm3 (4.4-11.0)
[2023-05-19 02:40] LABS: Differential Indicated SCAN CRITERIA MET
[2023-05-19 02:45] LABS: Troponin-I HS 3174 pg/mL (3.0-78.0)
[2023-05-19 03:04] LABS: Anisocytosis 1+
[2023-05-19 04:22] LABS: Anion Gap 8 (5-15); BUN 52 mg/dL (7-18); BUN/Creat Ratio 32.9 RATIO (10-20); Calcium,Total 8.4 mg/dL (8.5-10.1); Chloride 97 mmol/L (98-107); Creatinine, Serum 1.58 mg/dL (0.70-1.30); EST Glomerular Filtration Rate 45 mL/min (>60); Est Glom Filt Rate - Afr Amer 54 mL/min (>60); Estimated Creatinine Clearance 34.87 ml/min; Glucose 360 mg/dL (74-106); Magnesium 2.5 mg/dL (1.6-2.6); Phosphorus 4.7 mg/dL (2.5-4.9); Potassium 6.6 mmol/L (3.5-5.1); Sodium Level 132 mmol/L (136-145)
--- NOTE | 2023-05-19 04:37 | PN.HOSP_ITS ---
Hospitalist Note AM potassium came back at 6.6 which was elevated significantly compared to previous. When I reviewed his previous records I did find that he had an elevated potassium after his last NSTEMI. I suspect this may be related to his cell lysis in conjunction with his NSTEMI. I will give him subcu insulin 10 units x 1 dose as well as subcu Levemir 15 units x 1 dose. His blood glucose as noted in my H&P was elevated and we were unsure if this was a stress response or otherwise. This is markedly elevated from his baseline and he typically has d iet-controlled diabetes with an A1c previously that shows good control. Last A1c was on 03/24/2023 and was 5.8. Given the marked elevation and its been consistent greater than 300 I will go ahead and start him on daily Levemir and every 6 hours sliding scale as well since he has tube feeds running at baseline. I will also check a hemoglobin A1c. I am concerned that possibly he may have some metastatic disease to his pancreas with the change in his blood glucose control. He is not on any steroids. He is not on any fluids with dextrose and he is not on any supplemental potassium. We will follow-up with repeat BMP at 10 AM.
[2023-05-19] MEDS: Insulin Glargine-YFGN 100 UNIT/ML Pen 15 UNIT SC (05:57)
[2023-05-19] MEDS: Insulin Lispro 100 UNIT/ML INSULN.PEN 10 UNIT SC (05:58)
[2023-05-19] MEDS: Insulin Lispro 100 UNIT/ML INSULN.PEN SC ×4 (05:58→23:03)
[2023-05-19] MEDS: Furosemide 40 MG/4 ML Vial IV ×2 (06:00→15:13)
[2023-05-19 06:23] LABS: Bedside Glucose 266 mg/dL (74-106)
[2023-05-19 08:23] LABS: Hemoglobin A1c 6.5 % (3.8-5.6)
--- NOTE | 2023-05-19 09:36 | CASEMGMT ---
Social Work Consult: Hospice Referral source: Charge nurse notified this social media project manager This social media project manager met with patient in room. Introduced self and social media project manager role. Patient agreeable to speak with this social media project manager. This social media project manager broached topic of hospice referral. Patient confirms to want a hospice referral and request for referral to be made to [facility], patient request for this social media project manager to contact patient spouse, Natacha in regards to referral. Active support and listening provided. Patient states to no longer want to come to the hospital for treatment. Patient states to want to be able to be comfortable with patient home. Telephone call to Natacha, this social media project manager communicated above information. Natacha voiced understanding and aware that [facility] will be reaching out to set up a time to meet with Natacha and patient. Telephone call to [facility], voicemail left requesting return phone call. PLAN: Hospice, pending acceptance. Social Work to continue to follow. Regis HANSEN, PATIENCE-S
--- NOTE | 2023-05-19 10:27 | CASEMGMT ---
[facility]ela to work up referral. Clinical information faxed. Gabriela to reach out to patient spouse. PLAN: [facility], pending acceptance Social Work to continue to follow. Regis HANSEN, PATIENCE-S
[2023-05-19 10:51] LABS: Anion Gap 7 (5-15); BUN 52 mg/dL (7-18); BUN/Creat Ratio 35.4 RATIO (10-20); Calcium,Total 8.5 mg/dL (8.5-10.1); Chloride 99 mmol/L (98-107); Creatinine, Serum 1.47 mg/dL (0.70-1.30); EST Glomerular Filtration Rate 49 mL/min (>60); Est Glom Filt Rate - Afr Amer 59 mL/min (>60); Estimated Creatinine Clearance 37.48 ml/min; Glucose 240 mg/dL (74-106); Potassium 5.6 mmol/L (3.5-5.1); Sodium Level 134 mmol/L (136-145)
--- NOTE | 2023-05-19 11:10 | CASEMGMT ---
[facility] Gabriela reports plan is to meet with patient and patient spouse, Natacha in patient room today at 2:00pm. PLAN: Hospice, pending acceptance. Social Work to continue to follow. Regis HANSEN, RAFIA
[2023-05-19] MEDS: Metoprolol Tartrate 50 MG Tablet GT (11:32)
[2023-05-19] MEDS: Isosorbide DN 30 MG Tablet GT ×2 (11:33→22:30)
[2023-05-19] MEDS: Lansoprazole 15 MG Capsule.DR 30 MG GT (11:33)
[2023-05-19] MEDS: Enoxaparin 40 MG/0.4 ML Syringe SC (11:34)
[2023-05-19 12:10] LABS: Bedside Glucose 195 mg/dL (74-106)
[2023-05-19] MEDS: Ondansetron 4 MG/2 ML Vial IV (15:13)
--- NOTE | 2023-05-19 15:43 | PCM.PN.HOSP ---
Reason for Visit Reason for Visit: Diagnoses Non-ST elevation (NSTEMI) myocardial infarction (05/18/23) Heart failure, unspecified (05/18/23) Hypoxemia (05/18/23) Hyperglycemia, unspecified (05/18/23) Other specified counseling (05/18/23) Subjective Subjective Pt had episode of nausea that resolved, no CP, SOB improving. Objective Data Objective Data Vital Signs: Vital Signs Temp Pulse Resp BP Pulse Ox O2 Del Method O2 Flow Rate 98.3 F 91 16 128/50 H 92 Room Air 6 05/19/23 13:00 05/19/23 15:13 05/19/23 13:00 05/19/23 15:13 05/19/23 13:00 05/19/23 13:00 05/19/23 07:45 Oxygen Flow Rate (L/min) 6 Oxygen Delivery Method Room Air Weight: 81.9 kg Body Mass Index (BMI) 26.7 Intake & Output: Intake and Output for Last 24 Hours 05/17/23 05/18/23 05/19/23 23:59 23:59 23:59 Intake Total 54.17 / 54.17 100 / 100 Output Total 300 / 300 Balance 54.17 / 54.17 -200 / -200 Lab / Micro Data 05/19/23 01:55 05/19/23 10:10 Labs: Laboratory Results - last 24 hr 05/18/23 19:45: WBC 9.3, RBC 2.80 L, Hgb 7.4 L, Hct 24.3 L, MCV 86.8, MCH 26.4 L, MCHC 30.5 L, RDW Std Deviation 49.4 H, RDW Coeff of Ash 15.7 H, Plt Count 284, MPV 12.3 H, Immature Gran % (Auto) 0.500, Neut % (Auto) 84.2 H, Lymph % (Auto) 4.4 L, [place] % (Auto) 7.9, Eos % (Auto) 2.5, Baso % (Auto) 0.5, Absolute Neuts (auto) 7.8 H, Absolute Lymphs (auto) 0.41 L, Nucleated RBC % 0, Differential Comment SEE COMMENT, Platelet Estimate ADEQUATE, RBC Morphology NORM C+C, Anisocytosis RARE, PT 14.0, INR 1.1, APTT 32.2, Sodium 132 L, Potassium 4.8, Chloride 97 L, Carbon Dioxide 28.0, Anion Gap 7, BUN 50 H, Creatinine 1.59 H, Estim Creat Clear Calc 35.82, Est GFR (MDRD) Af Amer 54 L, Est GFR (MDRD) Non-Af 45 L, BUN/Creatinine Ratio 31.4 H, Glucose 320 H, Calcium 8.8, Troponin I High Sens 18 05/18/23 21:52: Troponin I High Sens 234 H*, B-Natriuretic Peptide 447.5 H 05/19/23 01:55: WBC 13.5 H, RBC 2.88 L, Hgb 7.7 L, Hct 25.7 L, MCV 89.2, MCH 26.7 L, MCHC 30.0 L, RDW Std Deviation 50.4 H, RDW Coeff of Ash 15.9 H, Plt Count 301, MPV 12.2 H, Immature Gran % (Auto) 0.700, Neut % (Auto) 95.5 H, Lymph % (Auto) 0.7 L, [place] % (Auto) 2.8, Eos % (Auto) 0.0, Baso % (Auto) 0.3, Absolute Neuts (auto) 12.9 H, Absolute Lymphs (auto) 0.09 L, Nucleated RBC % 0, Anisocytosis 1+, Sodium Cancelled, Potassium Cancelled, Chloride Cancelled, Carbon Dioxide Cancelled, Anion Gap Cancelled, BUN Cancelled, Creatinine Cancelled, Estim Creat Clear Calc Cancelled, Est GFR (MDRD) Af Amer Cancelled, Est GFR (MDRD) Non-Af Cancelled, BUN/Creatinine Ratio Cancelled, Glucose Cancelled, Hemoglobin A1c 6.5 H, Calcium Cancelled, Phosphorus Cancelled, Magnesium Cancelled, Troponin I High Sens 3174 H* 05/19/23 03:35: Sodium 132 L, Potassium 6.6 H*, Chloride 97 L, Carbon Dioxide 27.0, Anion Gap 8, BUN 52 H, Creatinine 1.58 H, Estim Creat Clear Calc 34.87, Est GFR (MDRD) Af Amer 54 L, Est GFR (MDRD) Non-Af 45 L, BUN/Creatinine Ratio 32.9 H, Glucose 360 H, Calcium 8.4 L, Phosphorus 4.7, Magnesium 2.5 05/19/23 05:57: POC Glucose 266 H 05/19/23 10:10: Sodium 134 L, Potassium 5.6 H, Chloride 99, Carbon Dioxide 28.0, Anion Gap 7, BUN 52 H, Creatinine 1.47 H, Estim Creat Clear Calc 37.48, Est GFR (MDRD) Af Amer 59 L, Est GFR (MDRD) Non-Af 49 L, BUN/Creatinine Ratio 35.4 H, Glucose 240 H, Calcium 8.5 05/19/23 11:50: POC Glucose 195 H Micro: Microbiology 05/18/23 23:25 Nasal Secretion SARS-CoV-2 & FLU Antigen (Rapid) - Final Radiography Diagnostic Testing: Radiology Impression Chest CTA 05/18/23 19:41 IMPRESSION: Patchy groundglass opacities are noted in both lungs suggesting bilateral pneumonia. There is diffuse interstitial thickening in both lungs suggesting pulmonary edema. Small bilateral pleural effusions. Pleural nodules in the upper part of the right and left major fissures measuring up to 1 cm suggesting metastatic lesions. No demonstrated pulmonary embolism or arterial dissection. Wall thickening in the distal esophagus, gastroesophageal junction extending to the gastric cardia consistent with neoplasm. There is ill-defined mass in the right lobe of the liver segment #4 measures 3.7 x 4.7 cm. Celiac lymphadenopathy measuring 4.2 x 4.4 cm. Electronically Signed: Michelle Hickey MD at 21:22 EDT , ADDENDUM: 05/18/237 IMPRESSION: undefined Physical Exam Narrative General: Alert, oriented, no apparent distress HEENT: Atraumatic, normocephalic Eyes: Anicteric, normal conjunctiva, extraocular movements grossly intact Neck: Supple Respiratory: Slight increased respiratory effort, somewhat diminished at right base Cardiovascular: Regular rate GI: Soft, nontender, nondistended Extremities: Slight peripheral edema Musculoskeletal: Moving all extremities Neuro: No overt focal neurological deficits Skin: No rashes appreciated Psych: Cooperative Assessment & Plan Assessment/Plan (1) Hypoxia: (2) Congestive heart failure: (3) NSTEMI, initial episode of care: (4) Hyperglycemia: (5) Advanced directives, counseling/discussion: PLAN: Plan #NSTEMI -Patient with recent admission and cardiology consultation to Dr. Medina from 04/21/2023 through 04/22/2023 for exact same issues -Troponins at that time were 10--> 545--> 4594 -Current troponin was 18--> 234 -Echo done on 04/21/2023 and patient was found to have an EF of 54% with moderate tricuspid valve insufficiency, pulmonary hypertension with a pulmonary systolic pressure of 50 mmHg and a mean aortic valve gradient of 6 mmHg. -Patient with remote history of aortic valve replacement and mitral valve repair along with a single saphenous vein graft bypass -Dr. Medina at that time given his metastatic esophageal carcinoma and his risk of bleeding placing him on dual antiplatelet therapy that medical management would be most appropriate and he was placed on a low-dose aspirin, nitrates, and a beta-ap. He has been compliant with these medications and indicated he has an appointment with him upcoming next week. -With this being recurrent of the same episode I discussed with the patient the previous recommendations with regards to his coronary disease and he indicated he is tired of having to come back and forth from the hospital for this and if we cannot pursue any aggressive management that he would like to talk to hospice -We will cycle his cardiac enzymes -Hold on repeat echocardiogram for now -Continue isosorbide -Continue low-dose aspirin -Continue statin -Add Ranexa -Continue metoprolol with 5 mg IV dose right now to help with his heart rate as I think if I can get his heart rate down it will help with his symptoms -Nitropaste -Current IV Dilaudid -We will hold on cardiology consultation for now given previous information and discussion with patient -05/19: Type I versus type II, optimize medical management for comfort as patient would like to go home with hospice, will adjust medications. #Acute CHF -Based on previous echocardiogram this is right-sided and diastolic however with above NSTEMI I suspect his ventricle is stiff causing acute heart failure -We will utilize Lasix 40 mg 3 times daily for now and hold home oral diuretics -Continue metoprolol -We will hold on repeat echocardiogram given 1 was done on 04/21/2023 with the above findings -Fluid restriction 1500 cc -Sodium restriction -Daily weights -Lower extremity Roger bandages -05/19: Transition back to oral Lasix tomorrow as patient is diuresing well #DM-2 with hyperglycemia -Patient does have history of diabetes with his last hemoglobin A1c being 5.8 on 03/24/2023 -Has been diet controlled typically -I am questioning whether this is not a stress response -We will continue to follow and if blood sugars remain elevated may need to consider sliding scale -Also could consider Jardiance once stabilized to help with his heart failure -05/19: Patient started on scheduled insulin and tube feeds restarted, unclear etiology. Cannot rule out underlying infection though suspect this is all stress response with NSTEMI and cancer. May benefit from Jardiance on discharge to help with symptoms as insulin may not be ideal given patient going home with hospice and goals of care changing #Hyperkalemia -Patient had increase in potassium to 6.6, has had hyperkalemia post NSTEMI last month as well which downtrended. 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 Velez know that he is hospitalized so he can have his radiation while he is admitted -Has 2-3 more radiations to go -Goal of radiation was to alleviate dysphagia and bleeding -Follows with medical oncology and sees Dr. Edwards -Next generation sequencing of the solid tumor panel was ordered to guide future systemic therapy however patient indicated to medical oncologist that he would not consent to chemotherapy -Palliative referral was made on 05/01/2023 however patient and family have not yet -We will discuss options with hospice tomorrow as patient is tired of having to come to the hospital for his cardiac issues which we cannot address due to his esophageal cancer which is known curative -05/19: Home with hospice tomorrow #GERD -Continue PPI #Chronic anemia secondary to iron deficiency -IV iron per oncology as an outpatient -Baseline hemoglobin appears to be between 8 and 9 however slowly trending down -Current hemoglobin 7.4 however patient appears to be volume overloaded -Repeat hemoglobin in a.m. and transfuse for anything less than 7 -Hopefully hemoglobin will go up with diuresis -05/19: Stable today #CKD stage IIIb -Baseline hemoglobin appears to be between 1.35 and 1.6 -Currently 1.59 -Continue to monitor with diuresis -Avoid nephrotoxins as able -05/19: Stable, continue current management #History of tobacco abuse -Remote #DVT prophylaxis -Subcu Lovenox 40 daily CODE STATUS -DNR CCA with no intubation. Time spent in the patient's overall evaluation,decision-making process, review of diagnostic data, adjustment of management, discussion with other providers, nursing nursing and ancillary staff involved in patient's care documentation, 60 minutes Charges/Coding Visit Charges Inpatient E&M: 33715 Subs Hosp L3
--- NOTE | 2023-05-19 15:48 | CASEMGMT ---
[facility] Kimberly reports that patient signed paperwork for [facility]. This social economist updated medical team on above. Plan is to discharge tomorrow per Dr. Abel. This social economist updated [facility] that plan is for patient to discharge to home tomorrow. Green Sheet left on the chart. PLAN: Home with [facility] Regis HANSEN, RAFIA
[2023-05-19] MEDS: Jevity 1.5. 1,000 ML Bottle 240 ML GT ×3 (15:52→22:30)
[2023-05-19] MEDS: Calcium Gluconate 1 GM/10 ML Vial IVP (17:06)
[2023-05-19] MEDS: Sodium Polystyrene Sulfonate 15 GM/60 ML UDC 30 GM PO (17:06)
[2023-05-19 19:10] LABS: Bedside Glucose 278 mg/dL (74-106)
[2023-05-19] MEDS: Atorvastatin Calcium 80 MG Tablet GT (22:30)
[2023-05-19] MEDS: Metoprolol Tartrate 25 MG Tablet 75 MG GT (22:31)
[2023-05-19 23:24] LABS: Bedside Glucose 233 mg/dL (74-106)
[2023-05-20] VITALS (17 sets, daily range): BP systolic 99–142; BP diastolic 44–71; PULSE 98–149; RESP 14–26; TEMP 36.8–37.2; O2SAT 88–98
--- NOTE | 2023-05-20 04:48 | CPS ---
RT too busy to do pep and I.S. with pt.
[2023-05-20] MEDS: Jevity 1.5. 1,000 ML Bottle 240 ML GT ×6 (05:00→22:51)
[2023-05-20] MEDS: Insulin Lispro 100 UNIT/ML INSULN.PEN SC ×3 (05:00→18:07)
[2023-05-20 06:44] LABS: Bedside Glucose 171 mg/dL (74-106)
[2023-05-20 07:03] LABS: Absolute Lymphocyte Count 0.29 X10^3/uL (0.83-4.51); Absolute Neutrophil Count 8.2 X10^3/uL (2.0-7.7); Basophil# 0.04 X10^3/uL; Basophil% 0.4 % (0-1); Eosinophil# 0.15 X10^3/uL; Eosinophils% 1.6 % (0-5); Hemoglobin 6.5 g/dL (13.0-16.5); Lymphocyte # 0.29 X10^3/ul (0.83-4.51); Mean Corp Hgb Conc 29.5 g/dL (32-36); Mean Corpuscular Hgb 26.5 pg (27.0-32.0); Mean Corpuscular Volume 89.8 fL (80-94); Mean Platelet Vol. 12.1 fl (6.2-12.0); Monocyte# 0.76 X10^3/uL; NRBC Flagged by Analyzer 0 % (0-5); Neutrophil # 8.24 X10^3/uL (2.7-7.7); Neutrophil % 86.4 % (47-70); POSITIVE DIFFERENTIAL YES; Platelet Count 262 K/mm3 (150-450); RBC Distribution Width CV 15.9 % (11.6-14.6); RBC Distribution Width SD 51.2 fl (35.1-43.9); Red Blood Count 2.45 M/mm3 (4.6-6.2); White Blood Count 9.5 K/mm3 (4.4-11.0)
[2023-05-20 07:50] LABS: Differential Indicated SCAN CRITERIA MET
[2023-05-20 07:54] LABS: Anion Gap 7 (5-15); BUN 56 mg/dL (7-18); BUN/Creat Ratio 37.6 RATIO (10-20); Calcium,Total 8.5 mg/dL (8.5-10.1); Chloride 100 mmol/L (98-107); Creatinine, Serum 1.49 mg/dL (0.70-1.30); EST Glomerular Filtration Rate 48 mL/min (>60); Est Glom Filt Rate - Afr Amer 58 mL/min (>60); Estimated Creatinine Clearance 36.98 ml/min; Glucose 180 mg/dL (74-106); Potassium 3.9 mmol/L (3.5-5.1); Sodium Level 137 mmol/L (136-145)
[2023-05-20] MEDS: Metoprolol Tartrate 5 MG/5 ML Vial 2.5 MG IV (09:30)
[2023-05-20] MEDS: Enoxaparin 40 MG/0.4 ML Syringe SC (09:35)
[2023-05-20] MEDS: Metoprolol Tartrate 25 MG Tablet 75 MG GT (09:36)
[2023-05-20] MEDS: Furosemide 40 MG Tablet 60 MG PO (09:36)
[2023-05-20] MEDS: Lansoprazole 15 MG Capsule.DR 30 MG GT (09:36)
[2023-05-20] MEDS: Isosorbide DN 30 MG Tablet GT ×2 (09:37→22:47)
[2023-05-20] MEDS: Aspirin 81 MG TAB.CHEW GT ×2 (09:37→22:47)
[2023-05-20] MEDS: Metoprolol Tartrate 25 MG Tablet GT (09:39)
--- NOTE | 2023-05-20 09:49 | EKG12_ITS ---
Test Reason : AFIB Blood Pressure : / mmHG Vent. Rate : 134 BPM Atrial Rate : 000 BPM P-R Int : 000 ms QRS Dur : 080 ms QT Int : 328 ms P-R-T Axes : 000 073 132 degrees QTc Int : 489 ms Atrial fibrillation with rapid ventricular response Minimal voltage criteria for LVH, may be normal variant ( Sokolow-Llamas ) ST & T wave abnormality, consider anterolateral ischemia Abnormal ECG When compared with ECG of 18-MAY-2023 19:12, MANUAL COMPARISON REQUIRED, DATA IS UNCONFIRMED Confirmed by VERO ROCKWELL, JOSSY ([id number]), index editor LIANA PIZARRO ([id number]) on 07/10/2023 1:07:47 PM Referred By: Confirmed By:JOSSY PHAM MD
[2023-05-20 09:59] LABS: Magnesium 2.4 mg/dL (1.6-2.6)
[2023-05-20 10:13] LABS: Absolute Lymphocyte Count 0.27 X10^3/uL (0.83-4.51); Absolute Neutrophil Count 8.3 X10^3/uL (2.0-7.7); Basophil# 0.05 X10^3/uL; Basophil% 0.5 % (0-1); Eosinophil# 0.06 X10^3/uL; Eosinophils% 0.6 % (0-5); Hematocrit 21.7 % (40-54); Hemoglobin 6.5 g/dL (13.0-16.5); Lymphocyte # 0.27 X10^3/ul (0.83-4.51); Lymphocyte % 2.9 % (19-41); Mean Platelet Vol. 11.7 fl (6.2-12.0); Monocyte# 0.72 X10^3/uL; Monocyte% 7.7 % (0-10); NRBC Flagged by Analyzer 0 % (0-5); Neutrophil # 8.25 X10^3/uL (2.7-7.7); Neutrophil % 87.7 % (47-70); POSITIVE DIFFERENTIAL YES; Platelet Count 263 K/mm3 (150-450); RBC Distribution Width CV 15.9 % (11.6-14.6); RBC Distribution Width SD 51.7 fl (35.1-43.9); Red Blood Count 2.41 M/mm3 (4.6-6.2); White Blood Count 9.4 K/mm3 (4.4-11.0)
[2023-05-20 10:15] LABS: Differential Indicated SCAN CRITERIA MET
--- NOTE | 2023-05-20 10:29 | NURSING ---
Addendum entered by Eliza Austin 05/20/23 11:30: Addendum, Chest pain resolved s/p metoprolol. BP 99/67, HR 118. Original Note: Pt had episode of Afib RVR HR 150s and symptomatic chest pain which was treated with 2.5 MG IV Lopressor and PO metop 100 mg.
[2023-05-20] MEDS: Insulin Glargine-YFGN 100 UNIT/ML Pen 15 UNIT SC (10:30)
[2023-05-20 10:48] LABS: Differential Comment SCANNED
[2023-05-20 11:01] LABS: Bedside Glucose 208 mg/dL (74-106)
[2023-05-20 11:11] LABS: Differential Comment SCANNED
[2023-05-20] MEDS: Furosemide 40 MG/4 ML Vial IV (12:30)
--- NOTE | 2023-05-20 12:59 | PN.HOSP_ITS ---
Reason for Visit Reason for Visit: Diagnoses Non-ST elevation (NSTEMI) myocardial infarction (05/18/23) Heart failure, unspecified (05/18/23) Hypoxemia (05/18/23) Hyperglycemia, unspecified (05/18/23) Other specified counseling (05/18/23) Subjective Subjective Had been feeling well until he went into [facility] around 9 AM and then had some chest pain that radiated to the back and the left arm and resolved with metoprolol Objective Data Objective Data Vital Signs: Vital Signs Temp Pulse Resp BP Pulse Ox O2 Del Method O2 Flow Rate 98.3 F 118 H 16 99/67 92 Nasal Cannula 3 05/20/23 10:49 05/20/23 11:31 05/20/23 10:49 05/20/23 10:49 05/20/23 10:49 05/20/23 10:49 05/20/23 10:49 Oxygen Flow Rate (L/min) 3 Oxygen Delivery Method Nasal Cannula Weight: 81.9 kg Body Mass Index (BMI) 26.7 Intake & Output: Intake and Output for Last 24 Hours 05/18/23 05/19/23 05/20/23 23:59 23:59 23:59 Intake Total 54.17 / 54.17 1580 / 1580 1320 / 1320 Output Total 300 / 300 Balance 54.17 / 54.17 1280 / 1280 1320 / 1320 Lab / Micro Data 05/20/23 10:00 05/20/23 05:50 Labs: Laboratory Results - last 24 hr 05/19/23 18:37: POC Glucose 278 H 05/19/23 23:03: POC Glucose 233 H 05/20/23 04:53: POC Glucose 171 H 05/20/23 05:50: WBC 9.5, RBC 2.45 L, Hgb 6.5 L, Hct 22.0 L, MCV 89.8, MCH 26.5 L , MCHC 29.5 L, RDW Std Deviation 51.2 H, RDW Coeff of Ash 15.9 H, Plt Count 262, MPV 12.1 H, Immature Gran % (Auto) 0.600, Neut % (Auto) 86.4 H, Lymph % (Auto) 3.0 L, [place] % (Auto) 8.0, Eos % (Auto) 1.6, Baso % (Auto) 0.4, Absolute Neuts (auto) 8.2 H, Absolute Lymphs (auto) 0.29 L, Nucleated RBC % 0, Differential Comment SCANNED, Sodium 137, Potassium 3.9, Chloride 100, Carbon Dioxide 30.0, Anion Gap 7, BUN 56 H, Creatinine 1.49 H, Estim Creat Clear Calc 36.98, Est GFR (MDRD) Af Amer 58 L, Est GFR (MDRD) Non-Af 48 L, BUN/Creatinine Ratio 37.6 H, Glucose 180 H, Calcium 8.5, Magnesium 2.4 05/20/23 10:00: WBC 9.4, RBC 2.41 L, Hgb 6.5 L, Hct 21.7 L, MCV 90.0, MCH 27.0, MCHC 30.0 L, RDW Std Deviation 51.7 H, RDW Coeff of Ash 15.9 H, Plt Count 263, MPV 11.7, Immature Gran % (Auto) 0.600, Neut % (Auto) 87.7 H, Lymph % (Auto) 2.9 L, [place] % (Auto) 7.7, Eos % (Auto) 0.6, Baso % (Auto) 0.5, Absolute Neuts (auto) 8.3 H, Absolute Lymphs (auto) 0.27 L, Nucleated RBC % 0, Differential Comment SCANNED 05/20/23 10:28: POC Glucose 208 H 05/20/23 11:50: Crossmatch See Detail Micro: Microbiology 05/18/23 23:25 Nasal Secretion SARS-CoV-2 & FLU Antigen (Rapid) - Final Physical Exam Narrative General: Alert, oriented, no apparent distress HEENT: Atraumatic, normocephalic Eyes: Anicteric, normal conjunctiva, extraocular movements grossly intact Neck: Supple Respiratory: Somewhat diminished bilaterally, no wheezes Cardiovascular: Irregular and tachycardic GI: Soft, nontender, nondistended Extremities: Slight peripheral edema Musculoskeletal: Moving all extremities Neuro: No overt focal neurological deficits Skin: No rashes appreciated Psych: Cooperative Assessment & Plan Assessment/Plan (1) Hypoxia: (2) Congestive heart failure: (3) NSTEMI, initial episode of care: (4) Hyperglycemia: (5) Advanced directives, counseling/discussion: PLAN: Plan #Paroxysmal atrial fibrillation-went into RVR -Is in sinus rhythm at this time -Is not a candidate for anticoagulation due to bleeding risk -Continue metoprolol -05/20: Patient had episode of A-fib with RVR this morning and heart rate went back up midday requiring amnio bolus, will need to control heart rate prior to DC home with hospice to optimize comfort, metoprolol increased as well #Chronic anemia secondary to iron deficiency -IV iron per oncology as an outpatient -Baseline hemoglobin appears to be between 8 and 9 however slowly trending down -Current hemoglobin 7.4 however patient appears to be volume overloaded -Repeat hemoglobin in a.m. and transfuse for anything less than 7 -Hopefully hemoglobin will go up with diuresis -05/19: Stable today -05/20: Hemoglobin 6.5 which was confirmed on repeat, no active blood loss noted, baseline is 7-8, will give 1 unit packed red blood cells #NSTEMI -Patient with recent admission and cardiology consultation to Dr. Medina from 04/21/2023 through 04/22/2023 for exact same issues -Troponins at that time were 10--> 545--> 4594 -Current troponin was 18--> 234 -Echo done on 04/21/2023 and patient was found to have an EF of 54% with moderate tricuspid valve insufficiency, pulmonary hypertension with a pulmonary systolic pressure of 50 mmHg and a mean aortic valve gradient of 6 mmHg. -Patient with remote history of aortic valve replacement and mitral valve repair along with a single saphenous vein graft bypass -Dr. Medina at that time given his metastatic esophageal carcinoma and his risk of bleeding placing him on dual antiplatelet therapy that medical management would be most appropriate and he was placed on a low-dose aspirin, nitrates, and a beta-ap. He has been compliant with these medications and indicated he has an appointment with him upcoming next week. -With this being recurrent of the same episode I discussed with the patient the previous recommendations with regards to his coronary disease and he indicated he is tired of having to come back and forth from the hospital for this and if we cannot pursue any aggressive management that he would like to talk to hospice -We will cycle his cardiac enzymes -Hold on repeat echocardiogram for now -Continue isosorbide -Continue low-dose aspirin -Continue statin -Add Ranexa -Continue metoprolol with 5 mg IV dose right now to help with his heart rate as I think if I can get his heart rate down it will help with his symptoms -Nitropaste -Current IV Dilaudid -We will hold on cardiology consultation for now given previous information and discussion with patient -05/19: Type I versus type II, optimize medical management for comfort as patient would like to go home with hospice, will adjust medications. #Acute CHF -Based on previous echocardiogram this is right-sided and diastolic however with above NSTEMI I suspect his ventricle is stiff causing acute heart failure -We will utilize Lasix 40 mg 3 times daily for now and hold home oral diuretics -Continue metoprolol -We will hold on repeat echocardiogram given 1 was done on 04/21/2023 with the above findings -Fluid restriction 1500 cc -Sodium restriction -Daily weights -Lower extremity Roger bandages -05/19: Transition back to oral Lasix tomorrow as patient is diuresing well -05/20: Transition to oral Lasix #DM-2 with hyperglycemia -Patient does have history of diabetes with his last hemoglobin A1c being 5.8 on 03/24/2023 -Has been diet controlled typically -I am questioning whether this is not a stress response -We will continue to follow and if blood sugars remain elevated may need to consider sliding scale -Also could consider Jardiance once stabilized to help with his heart failure -05/19: Patient started on scheduled insulin and tube feeds restarted, unclear etiology. Cannot rule out underlying infection though suspect this is all stress response with NSTEMI and cancer. May benefit from Jardiance on discharge to help with symptoms as insulin may not be ideal given patient going home with hospice and goals of care changing -05/20: Continue present management #Hyperkalemia?resolved -Patient had increase in potassium to 6.6, has had hyperkalemia post NSTEMI last month as well which downtrended. 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 Velez know that he is hospitalized so he can have his radiation while he is admitted -Has 2-3 more radiations to go -Goal of radiation was to alleviate dysphagia and bleeding -Follows with medical oncology and sees Dr. Edwards -Next generation sequencing of the solid tumor panel was ordered to guide future systemic therapy however patient indicated to medical oncologist that he would not consent to chemotherapy -Palliative referral was made on 05/01/2023 however patient and family have not yet -We will discuss options with hospice tomorrow as patient is tired of having to come to the hospital for his cardiac issues which we cannot address due to his esophageal cancer which is known curative -05/19: Home with hospice tomorrow -05/20: Plan is still home with hospice however given RVR and need for blood transfusion do not feel he is okay/safe to DC today. Treating his RVR and anemia both align with goals of helping him remain more comfortable and remaining out of the hospital and feel it is very reasonable to address this prior to going home especially as patient notices when he goes in RVR and it is uncomfortable #GERD -Continue PPI #CKD stage IIIb -Baseline hemoglobin appears to be between 1.35 and 1.6 -Currently 1.59 -Continue to monitor with diuresis -Avoid nephrotoxins as able -05/19: Stable, continue current management #History of tobacco abuse -Remote #DVT prophylaxis -Subcu Lovenox 40 daily CODE STATUS -DNR CCA with no intubation. Time spent in the patient's overall evaluation,decision-making process, review of diagnostic data, adjustment of management, discussion with other providers, nursing nursing and ancillary staff involved in patient's care documentation, 51 minutes Charges/Coding Visit Charges Inpatient E&M: 80763 [facility] Hosp L3
[2023-05-20 18:25] LABS: Bedside Glucose 324 mg/dL (74-106)
[2023-05-20] MEDS: Atorvastatin Calcium 80 MG Tablet GT (22:47)
[2023-05-20] MEDS: Tamsulosin HCl 0.4 MG Capsule PO (22:48)
[2023-05-20] MEDS: Metoprolol Tartrate 100 MG Tablet GT (23:09)
[2023-05-20] MEDS: Ondansetron 4 MG/2 ML Vial IV (23:46)
[2023-05-20] MEDS: 0.9% Saline Lock 10 ML Syringe IV (23:47)
[2023-05-21] VITALS (8 sets, daily range): BP systolic 115–125; BP diastolic 40–50; PULSE 87–94; RESP 16–18; TEMP 36.4–36.6; O2SAT 86–100
[2023-05-21] MEDS: Insulin Lispro 100 UNIT/ML INSULN.PEN SC ×3 (00:22→12:28)
[2023-05-21 00:44] LABS: Bedside Glucose 184 mg/dL (74-106)
[2023-05-21] MEDS: Jevity 1.5. 1,000 ML Bottle 240 ML GT ×3 (05:28→12:30)
[2023-05-21 08:30] LABS: Bedside Glucose 187 mg/dL (74-106)
[2023-05-21] MEDS: Enoxaparin 40 MG/0.4 ML Syringe SC (09:32)
[2023-05-21] MEDS: Furosemide 40 MG Tablet 60 MG PO (09:33)
[2023-05-21] MEDS: Lansoprazole 15 MG Capsule.DR 30 MG GT (09:33)
[2023-05-21] MEDS: Aspirin 81 MG TAB.CHEW GT (09:33)
[2023-05-21] MEDS: Isosorbide DN 30 MG Tablet GT (09:33)
[2023-05-21] MEDS: Metoprolol Tartrate 100 MG Tablet GT (09:33)
[2023-05-21 10:52] LABS: Absolute Lymphocyte Count 0.28 X10^3/uL (0.83-4.51); Absolute Neutrophil Count 8.1 X10^3/uL (2.0-7.7); Basophil# 0.05 X10^3/uL; Basophil% 0.5 % (0-1); Eosinophil# 0.32 X10^3/uL; Eosinophils% 3.3 % (0-5); Hematocrit 25.1 % (40-54); Hemoglobin 7.5 g/dL (13.0-16.5); Lymphocyte # 0.28 X10^3/ul (0.83-4.51); Lymphocyte % 2.9 % (19-41); Mean Corp Hgb Conc 29.9 g/dL (32-36); Mean Corpuscular Hgb 26.8 pg (27.0-32.0); Mean Corpuscular Volume 89.6 fL (80-94); Mean Platelet Vol. 11.8 fl (6.2-12.0); Monocyte# 0.92 X10^3/uL; Monocyte% 9.4 % (0-10); NRBC Flagged by Analyzer 0 % (0-5); Neutrophil # 8.12 X10^3/uL (2.7-7.7); Neutrophil % 83.1 % (47-70); POSITIVE DIFFERENTIAL YES; Platelet Count 255 K/mm3 (150-450); RBC Distribution Width CV 16.2 % (11.6-14.6); RBC Distribution Width SD 52.7 fl (35.1-43.9); White Blood Count 9.8 K/mm3 (4.4-11.0)
[2023-05-21 10:55] LABS: Differential Indicated SCAN CRITERIA MET
[2023-05-21 11:37] LABS: Differential Comment SCANNED
[2023-05-21] MEDS: Insulin Glargine-YFGN 100 UNIT/ML Pen 15 UNIT SC (12:28)
--- NOTE | 2023-05-21 13:09 | DCINST_ITS ---
Discharge Instructions Diet Discharge Diet: - (Sips and chips, PEG feedings) Activity Discharge Activity: Return to Normal Activity Follow Up Care Test Results: Test results from this visit will be discussed in further detail at your follow- up appointment, if applicable. Discharge Plan Admission Admit Date/Time: 05/18/23 23:10 Primary Reason for Your Visit: chest discomfort and shortness of breath Attending Provider: Viviana Abel Primary Care Provider: Gomez Nelson Consulting Providers: Lisa Thornton; Gerald Olivarez; Cayla Soto; Katharine Butcher; Lala Nelson POCKETED [employer]ING ASSEMBLER Instructions Patient Instructions: Starting Hospice, Hospice Dyspnea Care Additional Instructions / Restrictions: DISCHARGE INSTRUCTIONS PLEASE READ *Please take this with you to your next doctors appointment* -Your Lasix will be increased to 60 mg daily and you will be started on medication called Jardiance to also help with your fluid as well as blood sugars. To help with your chest pain and heart health your metoprolol be increased to 100 mg twice daily and it will be important that you take your other medications -Continue to take your isosorbide dinitrate, advised sitting down for 15 minutes after taking this and standing caution to verify no dizzy spells as you ind icated it may be lightheaded in the past -Please follow-up with your cancer doctor on discharge -you will be going home with hospice -Please call your primary care provider's office upon discharge to schedule a hospital follow up within 1 week. -For any concerning signs or symptoms please call 911 or proceed to the nearest emergency department Discharge Orders/Prescriptions Prescriptions: New Jardiance 10 mg tablet 10 mg PO DAILY Qty: 30 0RF Continued pantoprazole [address] for susp in packet 40 mg PO DAILY Qty: 30 2RF Rx Instructions: mix with water and take daily tamsulosin 0.4 MG capsule 0.4 mg PO QHS isosorbide dinitrate 30 mg tablet 30 mg feeding tube BID aspirin [Adult Low Dose Aspirin] 81 mg tablet,delayed release (DR/EC) 81 mg PO BID atorvastatin 80 mg tablet 80 mg PO QDAY Qty: 90 3RF ondansetron HCl 4 mg tablet 4 mg PO Q8H PRN (Reason: nausea and vomiting) Qty: 30 0RF Rx Instructions: take one tab prior to radiation and then as needed q8 hours Changed furosemide 40 MG tablet 60 mg PO DAILY 30 Days Qty: 45 1RF metoprolol tartrate 50 mg tablet 100 mg PO BID 30 Days Qty: 120 1RF Referrals / Follow Up: Johann Martin MD [Med Staff - Active Staff] - (Please follow-up with your cancer doctor upon discharge) Gomez Nelson DO [Primary Care Provider] - Within 1 Week Disposition Disposition (needs filled in before D/C Order can be placed): Hospice in Home
--- NOTE | 2023-05-21 13:18 | DS.PCM_ITS ---
Providers Date of Admission: 05/18/23 Date of Discharge: 05/21/23 Primary Care Physician: Dr. Gomez Nelson, Consultations 05/19/23 00:28 Consult: Hospice / Palliative Care Routine Consulting Provider: [facility] Reason for Consult: would like to talk to hospice and decide if to pursue that or palliative EMERGENT Consult: No MD Notified: Yes Date Notified: 05/19/23 Time Notified: 11:07 Method of Notification: per social insurance administrator Reason For Visit: NSTEMI/ACUTE CHF Diagnosis Discharge Diagnosis (1) Hypoxia: Status: Acute Code(s): R09.02 - Hypoxemia (2) Congestive heart failure: Status: Acute Code(s): I50.9 - Heart failure, unspecified (3) NSTEMI, initial episode of care: Status: Acute Code(s): I21.4 - Non-ST elevation (NSTEMI) myocardial infarction (4) Hyperglycemia: Status: Acute Code(s): R73.9 - Hyperglycemia, unspecified (5) Advanced directives, counseling/discussion: Status: Acute Code(s): Z71.89 - Other specified counseling Plan #Paroxysmal atrial fibrillation-went into RVR, rvr resolved #Chronic anemia secondary to iron deficiency #NSTEMI, unable to determine type I vs type II #Acute CHF, suspect underlying diastolic dysfunction #DM-2 with hyperglycemia #Hyperkalemia?resolved #CAD/HTN/HPL/aortic valve disease/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 04/21/23 ondansetron HCl 4 mg tablet 4 mg PO Q8H PRN nausea and vomiting #30 tabs 05/04/23 pantoprazole 40 mg granules delayed-release for susp in packet 40 mg PO DAILY #30 ea 05/17/23 isosorbide dinitrate 30 mg tablet 30 mg feeding tube BID 05/18/23 empagliflozin 10 mg tablet (Jardiance) 10 mg PO DAILY #30 tabs 05/21/23 furosemide 40 mg tablet 60 mg (1.5 x 40 mg) PO DAILY 30 days #45 tabs 05/21/23 metoprolol tartrate 50 mg tablet 100 mg (2 x 50 mg) PO BID 30 days #120 tabs 05/21/23 Hospital Course Summary of Care Provided Minutes Spent on Discharge: 40 Hospital Course: 82-year-old male history of paroxysmal atrial fibrillation, stage IV metastatic esophageal cancer, GERD, chronic iron deficiency anemia, coronary artery disease, hypertension, type 2 diabetes, CKD stage IIIb, recent elevated troponin who presented to [facility] 05/18/2023 with acute chest pain and shortness of breath 30 minutes prior to arrival. He has known coronary artery disease and has history of AV replacement and MV repair. Had recent admission end of March with a similar presentation at which time he was diagnosed with an NSTEMI and evaluated by cardiology and deemed not appropriate for any aggressive invasive management due to his metastatic esophageal cancer and his risk of bleeding. During this admission CTA performed which was negative for PE, BNP was 447, initial troponin 18 with repeat of 234. Was also hypoxic at 87% on 4 L of nasal cannula and had to be uptitrated to 6 L. Admitting physician discussed with him regarding goals of care and management moving forward and he was agreeable with conservative management and hospice consult. He improved with diuretics and adjustment of his metoprolol. Hospital stay complicated by going to [facility] with [facility] 05/20, he was given an amnio bolus and uptitrated his metoprolol and this resolved. Additionally had hemoglobin of 6.5 which was confirmed, usually remains in the 7 range, received 1 unit packed red blood cells and was stable. He and met with hospice and was deemed he was appropriate for hospice at home, patient discharged home with hospice 05/21. He reports no chest pain or shortness of breath and overall is feeling much better. Of note during his hospital stay he did initially have significantly elevated glucoses and was on insulin. Given his goals of care and hospice status and not being on insulin previously will DC on Jardiance to help with that and fluid overload. Discharge instructions as follows: -Your Lasix will be increased to 60 mg daily and you will be started on medication called Jardiance to also help with your fluid as well as blood sugars. To help with your chest pain and heart health your metoprolol be increa sed to 100 mg twice daily and it will be important that you take your other medications -Continue to take your isosorbide dinitrate, advised sitting down for 15 minutes after taking this and standing caution to verify no dizzy spells as you indicated it may be lightheaded in the past -Please follow-up with your cancer doctor on discharge -you will be going home with hospice -Please call your primary care provider's office upon discharge to schedule a hospital follow up within 1 week. -For any concerning signs or symptoms please call 911 or proceed to the nearest emergency department Physical Exam Narrative General: Alert, oriented, no apparent distress HEENT: Atraumatic, normocephalic Eyes: Anicteric, normal conjunctiva, extraocular movements grossly intact Neck: Supple Respiratory: Somewhat diminished bilaterally, no wheezes Cardiovascular: Irregular but no longer tachycardic GI: Soft, nontender, nondistended Extremities: Slight peripheral edema Musculoskeletal: Moving all extremities Neuro: No overt focal neurological deficits Skin: No rashes appreciated Psych: Cooperative Weight / BMI Weight Weight: 81.9 kg Body Mass Index (BMI) 26.7 ABG / Lab / Microbiology Data 05/21/23 10:25 05/20/23 05:50 Laboratory: Laboratory Results - last 24 hr 05/20/23 11:50: Blood Type A POSITIVE, Antibody Screen NEGATIVE, Crossmatch See Detail 05/20/23 18:05: POC Glucose 324 H 05/21/23 00:21: POC Glucose 184 H 05/21/23 06:10: POC Glucose 187 H 05/21/23 10:25: WBC 9.8, RBC 2.80 L, Hgb 7.5 L, Hct 25.1 L, MCV 89.6, MCH 26.8 L , MCHC 29.9 L, RDW Std Deviation 52.7 H, RDW Coeff of Ash 16.2 H, Plt Count 255, MPV 11.8, Immature Gran % (Auto) 0.800, Neut % (Auto) 83.1 H, Lymph % (Auto) 2.9 L, Carroll % (Auto) 9.4, Eos % (Auto) 3.3, Baso % (Auto) 0.5, Absolute Neuts (auto) 8.1 H, Absolute Lymphs (auto) 0.28 L, Nucleated RBC % 0, Differential Comment SCANNED Microbiology: Microbiology 05/18/23 23:25 Nasal Secretion SARS-CoV-2 & FLU Antigen (Rapid) - Final D/C Instructions Discharge Diet: - (Sips and chips, PEG feedings) Meaningful Use Info Meaningful Use Diagnoses (Choose all that apply): CHF CHF DELMAR/ARB ordered at discharge?: No Reason DELMAR/ARB not ordered?: Not indicated (hospice, controlled bp) Documented LVEF (%): 54 Discharge Plan Admission Admit Date/Time: 05/18/23 23:10 Primary Reason for Your Visit: chest discomfort and shortness of breath Attending Provider: Viviana Abel Primary Care Provider: Gomez Nelson Consulting Providers: Lisa Thornton; Gerald Olivarez; aCyla Soto; Katharine Butcher; Lala Nelson CALL CENTER OPERATOR Instructions Patient Instructions: Starting Hospice, Hospice Dyspnea Care Additional Instructions / Restrictions: DISCHARGE INSTRUCTIONS PLEASE READ *Please take this with you to your next doctors appointment* -Your Lasix will be increased to 60 mg daily and you will be started on medication called Jardiance to also help with your fluid as well as blood sugars. To help with your chest pain and heart health your metoprolol be increased to 100 mg twice daily and it will be important that you take your other medications -Continue to take your isosorbide dinitrate, advised sitting down for 15 minutes after taking this and standing caution to verify no dizzy spells as you indicated it may be lightheaded in the past -Please follow-up with your cancer doctor on discharge -you will be going home with hospice -Please call your primary care provider's office upon discharge to schedule a hospital follow up within 1 week. -For any concerning signs or symptoms please call 911 or proceed to the nearest emergency department Discharge Orders/Prescriptions Prescriptions: New Jardiance 10 mg tablet 10 mg PO DAILY Qty: 30 0RF Continued pantoprazole [address] for susp in packet 40 mg PO DAILY Qty: 30 2RF Rx Instructions: mix with water and take daily tamsulosin 0.4 MG capsule 0.4 mg PO QHS isosorbide dinitrate 30 mg tablet 30 mg feeding tube BID aspirin [Adult Low Dose Aspirin] 81 mg tablet,delayed release (DR/EC) 81 mg PO BID atorvastatin 80 mg tablet 80 mg PO QDAY Qty: 90 3RF ondansetron HCl 4 mg tablet 4 mg PO Q8H PRN (Reason: nausea and vomiting) Qty: 30 0RF Rx Instructions: take one tab prior to radiation and then as needed q8 hours Changed furosemide 40 MG tablet 60 mg PO DAILY 30 Days Qty: 45 1RF metoprolol tartrate 50 mg tablet 100 mg PO BID 30 Days Qty: 120 1RF Referrals / Follow Up: Johann Martin MD [Med Staff - Active Staff] - (Please follow-up with your cancer doctor upon discharge) Gomez Nelson DO [Primary Care Provider] - Within 1 Week Disposition Disposition (needs filled in before D/C Order can be placed): Hospice in Home Charges/Coding Visit Charges Inpatient E&M: 52394 Disch Hosp >30min
[2023-05-21 20:08] LABS: Bedside Glucose 294 mg/dL (74-106)
== END 2023-05-21 15:38 | disposition hospice, home (50) | DRG 280 ==
LOC: ED 22:36 → PCU 23:19
PROVIDERS: Admitting Provider Internal Medicine; Emergency Provider Emergency Medicine; PCP Family Medicine; Visit Provider Internal Medicine
DX: I21.4 Non-ST elevation (NSTEMI) myocardial infarction (principal); I50.31 Acute diastolic (congestive) heart failure; C15.5 Malignant neoplasm of lower third of esophagus; C78.7 Secondary malignant neoplasm of liver and intrahepatic bile duct; I13.0 Hypertensive heart and chronic kidney disease with heart failure and stage 1 through stage 4 chronic kidney disease, or unspecified chronic kidney disease; E11.22 Type 2 diabetes mellitus with diabetic chronic kidney disease; D50.9 Iron deficiency anemia, unspecified; N18.32 Chronic kidney disease, stage 3b; E11.65 Type 2 diabetes mellitus with hyperglycemia; I48.0 Paroxysmal atrial fibrillation; I08.0 Rheumatic disorders of both mitral and aortic valves; I25.2 Old myocardial infarction; E78.00 Pure hypercholesterolemia, unspecified; I25.10 Atherosclerotic heart disease of native coronary artery without angina pectoris; K21.9 Gastro-esophageal reflux disease without esophagitis; E87.5 Hyperkalemia; R09.02 Hypoxemia; Z66 Do not resuscitate; Z95.1 Presence of aortocoronary bypass graft; Z95.2 Presence of prosthetic heart valve; Z79.82 Long term (current) use of aspirin; Z79.84 Long term (current) use of oral hypoglycemic drugs; Z79.899 Other long term (current) drug therapy; Z87.891 Personal history of nicotine dependence
CPT/HCPCS: 36415; 71275; 80048; 82962; 83036; 83735; 83880; 84100; 84484; 85025; 85610; 85730; 86850; 86900; 86901; 86920; 86922; 87040; 87428; 92610; 93005; 94640; 94668; 97802; 99285; J7040; J7050; P9016; Q9967; A4216; J0612; J0696; J1940; J2405

== ENCOUNTER 2023-09-23 19:56 | Emergency (ER) | payer MEDICARE, SELFPAY ==
[2023-09-23 19:59] VITALS: BP 130/50; PULSE 106; RESP 20; TEMP 36.8; O2SAT 96; BMI 27.3
--- NOTE | 2023-09-23 20:20 | CT_ITS ---
INDICATION: wound infection EXAMINATION: CT Abdomen And Pelvis W/ Contrast Injection TECHNIQUE: Helically acquired images were obtained of the abdomen and pelvis after IV contrast. A radiation dose optimization technique was used for this scan. IV Contrast dosage and agent: IV 80 mL [id number] Oral contrast: None. COMPARISON: 05/18/2023 FINDINGS: Visualized lung bases: Bibasilar consolidations. Liver: Increased size of multiple hepatic metastases. Gallbladder: Few small intraluminal stones seen. Spleen: Unremarkable Pancreas: Unremarkable Adrenal Glands: Unremarkable Kidneys: Unremarkable Vasculature: Severe aortoiliac atherosclerotic disease. GI Tract: Increased size of large mass at the gastroesophageal junction measuring approximately 5.5 x 5.1 cm. G-tube in place. Lymphadenopathy: Increased mesenteric and retroperitoneal lymphadenopathy. Peritoneum: Small volume ascites. Bladder: Unremarkable Reproductive organs: Unremarkable Bones/Soft tissues: There are diffuse degenerative changes of the spine. Scattered lytic lesions concerning for metastatic disease. CT/Abdomen/Pelvis W IV Cont ONLY IMPRESSION: Interval worsening of metastatic disease involving the bones and liver as well as increased mesenteric and retroperitoneal lymphadenopathy and increased size of a large mass at the GE junction. Electronically Signed: Linus Solis MD at 23:46 EST ,
--- NOTE | 2023-09-23 20:21 | EX.ED.DYSGE1 ---
HPI <Dr. Roberta Dasilva MD - Last Filed: 09/23/23 23:00> History of Present Illness Chief Complaint: Abd Pain Informant: patient and family Onset/Context/Timing Onset: Days Context: Gradual Onset Narrative Narrative: Patient presents via EMS secondary to abdominal pain with drainage around PEG tube. Family states has been complaining less upper abdominal pain the last couple of days. Have been draining some water like fluid. Today the fluid turned dark and near black in color. Family states they soaked up multiple towels at home with his fluid. He has not had a fever. He reportedly had some nausea but no vomiting. [facility] <Dr. 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 Nonrheumatic mitral valve regurgitation Prostate disease Thyroid disease Wears dentures Wears hearing aid Home Medications tamsulosin 0.4 mg capsule 0.4 mg PO QHS urinary flow 11/15/16 [History Last Taken Unknown] atorvastatin 80 mg tablet 80 mg PO QDAY #90 tabs 11/21/22 [Rx Last Taken 04/20/23] aspirin 81 mg tablet,delayed release (Adult Low Dose Aspirin) 81 mg PO BID [facility] 04/21/23 [History Last Taken 04/20/23] ondansetron HCl 4 mg tablet 4 mg PO Q8H PRN nausea and vomiting #30 tabs 05/04/23 [Rx Last Taken Unknown] pantoprazole 40 mg granules delayed-release for susp in packet 40 mg PO DAILY #30 ea 05/17/23 [Rx Last Taken Unknown] empagliflozin 10 mg tablet (Jardiance) 10 mg PO DAILY #30 tabs 05/21/23 [Rx Last Taken Unknown] furosemide 40 mg tablet 60 mg (1.5 x 40 mg) PO DAILY 30 days #45 tabs 05/21/23 [Rx Last Taken Unknown] metoprolol tartrate 50 mg tablet 100 mg (2 x 50 mg) PO BID 30 days #120 tabs 05/21/23 [Rx Last Taken Unknown] isosorbide dinitrate 30 mg tablet 30 mg feeding tube BID #60 tabs 06/12/23 [Rx Last Taken Unknown] Allergy/AdvReac Type Severity Reaction Status Date / Time No Known Allergies Allergy Verified 05/18/23 19:09 Family History Brother Colon cancer Mother No problems noted. Father No problems noted. 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 Roberta Dasilva MD - Last Filed: 09/23/23 23:00> ROS ED Constitutional Constitutional ED: Denies chills or fever(s) Eyes Eyes: Denies change in vision Cardiovascular Cardiovascular: Denies chest pain or palpitations Respiratory/Chest Respiratory/Chest: Denies cough or dyspnea Gastrointestinal Gastrointestinal: Reports abdominal pain and nausea; Denies vomiting Integumentary Denies Abrasions Psychiatric Psychiatric: Denies anxiety or depression Allergic/Immunologic Allergic/Immunologic ED: Denies mouth swelling or tongue swelling EXAM <Dr. Roberta Dasilva MD - Last Filed: 09/23/23 23:00> Physical Exam Const Vital Signs: 09/23/23 19:59 09/23/23 22:00 09/24/23 00:00 Temperature 98.2 F Temperature Source Oral Pulse Rate 106 H 112 H 130 H Respiratory Rate 20 H 20 H 22 H Blood Pressure 130/50 H 114/40 L 118/56 L Blood Pressure Mean 76 64 76 Pulse Ox 96 100 100 Oxygen Delivery Method Nasal Cannula Nasal Cannula Nasal Cannula Oxygen Flow Rate (L/min) 2 2 2 Positive well nourished and well developed General Appearance ED: well developed HEENT Reports moist mucous membranes Eyes EOMs intact bilaterally Chest Wall inspection of chest normal and palpation of chest normal Resp normal respiratory effort and clear to auscultation bilaterally Cardio Rate: tachycardic GI GI Narrative: Abdomen soft with PEG tube in place. Gauze dressings at the peg tube site are removed. There is a small amount of dark black material on the gauze pads it looks like clotted blood. Minimal erythema at the PEG tube site with no fluctuance. Extremity normal to inspection Neuro Neuro Narrative: Hard of hearing but alert and answers questions. Psych mental status grossly normal <Dr. Marcin Sanches DO - Last Filed: 09/24/23 00:52> Physical Exam Const Vital Signs: 09/23/23 19:59 09/23/23 22:00 09/24/23 00:00 Temperature 98.2 F Temperature Source Oral Pulse Rate 106 H 112 H 130 H Respiratory Rate 20 H 20 H 22 H Blood Pressure 130/50 H 114/40 L 118/56 L Blood Pressure Mean 76 64 76 Pulse Ox 96 100 100 Oxygen Delivery Method Nasal Cannula Nasal Cannula Nasal Cannula Oxygen Flow Rate (L/min) 2 2 2 MDM <Dr. Roberta Dasilva MD - Last Filed: 09/23/23 23:00> MDM MDM Narrative Medical decision making narrative: IV line established. Patient given Zofran for nausea. Labwork obtained to evaluate for leukocytosis, anemia, and electrolyte derangement. CT scan of the abdomen pelvis obtained to evaluate for possible abscess and evaluate location of PEG tube. History & Record Review Discussion w/independent historian: Patient and Family Additional record(s) reviewed:: Prior inpatient record, Prior ED visit and Prior labs Lab Data Attestation: I reviewed the patient's lab results. Labs: Laboratory Results - last 24 hr 09/23/23 20:40 WBC 18.6 H RBC 3.09 L Hgb 6.6 L Hct 23.5 L MCV 76.1 L MCH 21.4 L MCHC 28.1 L RDW Std Deviation 46.9 H RDW Coeff of Ash 17.2 H Plt Count 248 MPV 10.4 Immature Gran % (Auto) 0.700 Neut % (Auto) 90.0 H Lymph % (Auto) 2.3 L Caldwell % (Auto) 4.9 Eos % (Auto) 1.7 Baso % (Auto) 0.4 Absolute Neuts (auto) 16.7 H Absolute Lymphs (auto) 0.43 L Nucleated RBC % 0 Differential Comment Sodium 137 Potassium 5.4 H Chloride 101 Carbon Dioxide 32.0 Anion Gap 4 L BUN 75 H Creatinine 1.79 H Estim Creat Clear Calc 31.82 Est GFR (MDRD) Af Amer 47 L Est GFR (MDRD) Non-Af 39 L BUN/Creatinine Ratio 41.9 H Glucose 122 H Calcium 10.0 Total Bilirubin 0.50 Direct Bilirubin 0.30 AST 21 ALT 21 Alkaline Phosphatase 134 H Total Protein 6.9 Albumin 2.1 L Globulin 4.8 H Lipase < 10 L Radiography Diagnostic Testing: Clinical Impression(s) from Imaging Studies Abdomen/Pelvis CT 09/23/23 20:20 IMPRESSION: Interval worsening of metastatic disease involving the bones and liver as well as increased mesenteric and retroperitoneal lymphadenopathy and increased size of a large mass at the GE junction. Electronically Signed: Linus Solis MD at 23:46 EST , Treatment and Re-Evaluation :: I was able to review the patient's prior records. His PEG tube was placed in March of this year by Dr. Trejo. 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 Patient was admitted to the hospital in April. He was discharged home with hospice. CBC today reveals elevated white count of 18.6 with 90% neutrophils. Hemoglobin is 6.6. His hemoglobin has been ranging between 6 and 8 for the last several months. Chemistry studies reveal a BUN of 75 and a creatinine 1.79. This is only slightly worsened than his baseline. LFTs are unremarkable. Lipase is negative at less than 10. Given the patient's anemia and black drainage around his PEG tube, I did ask nursing staff to obtain a Gastroccult from his PEG tube. This was performed and comes back negative. Patient signed out to oncoming physician for final review of CT scan. I did discuss current findings with at bedside. He is currently on hospice care and they do wish to remain with hospice. <Dr. Marcin Sanches, DO - Last Filed: 09/24/23 00:52> [facility] Lab Data Labs: Laboratory Results - last 24 hr 09/23/23 20:40 WBC 18.6 H RBC 3.09 L Hgb 6.6 L Hct 23.5 L MCV 76.1 L MCH 21.4 L MCHC 28.1 L RDW Std Deviation 46.9 H RDW Coeff of Ash 17.2 H Plt Count 248 MPV 10.4 Immature Gran % (Auto) 0.700 Neut % (Auto) 90.0 H Lymph % (Auto) 2.3 L [place] % (Auto) 4.9 Eos % (Auto) 1.7 Baso % (Auto) 0.4 Absolute Neuts (auto) 16.7 H Absolute Lymphs (auto) 0.43 L Nucleated RBC % 0 Differential Comment Sodium 137 Potassium 5.4 H Chloride 101 Carbon Dioxide 32.0 Anion Gap 4 L BUN 75 H Creatinine 1.79 H Estim Creat Clear Calc 31.82 Est GFR (MDRD) Af Amer 47 L Est GFR (MDRD) Non-Af 39 L BUN/Creatinine Ratio 41.9 H Glucose 122 H Calcium 10.0 Total Bilirubin 0.50 Direct Bilirubin 0.30 AST 21 ALT 21 Alkaline Phosphatase 134 H Total Protein 6.9 Albumin 2.1 L Globulin 4.8 H Lipase < 10 L Radiography Diagnostic Testing: Clinical Impression(s) from Imaging Studies Abdomen/Pelvis CT 09/23/23 20:20 IMPRESSION: Interval worsening of metastatic disease involving the bones and liver as well as increased mesenteric and retroperitoneal lymphadenopathy and increased size of a large mass at the GE junction. Electronically Signed: Linus Solis MD at 23:46 EST , Treatment and Re-Evaluation :: I was able to review the patient's prior records. His PEG tube was placed in March of this year by Dr. Trejo. 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 Patient was admitted to the hospital in April. He was discharged home with hospice. CBC today reveals elevated white count of 18.6 with 90% neutrophils. Hemoglobin is 6.6. His hemoglobin has been ranging between 6 and 8 for the last several months. Chemistry studies reveal a BUN of 75 and a creatinine 1.79. This is only slightly worsened than his baseline. LFTs are unremarkable. Lipase is negative at less than 10. Given the patient's anemia and black drainage around his PEG tube, I did ask nursing staff to obtain a Gastroccult from his PEG tube. This was performed and comes back negative. Patient signed out to oncoming physician for final review of CT scan. I did discuss current findings with at bedside. He is currently on hospice care and they do wish to remain with hospice. Patient was turned over to me by Dr. Dasilva @11 PM Brief history: 82-year-old male here with bleeding/discharge around his PEG tube Physical exam: PEG tube in place, no bleeding or discharge. Abdomen soft. Labs and images reviewed (if obtained): CBC with leukocytosis, severe anemia (close to baseline), no thrombocytopenia BMP with mild hyperkalemia, CKD, LFTs without signs of significant obstruction Lipase is wnl indicating no pancreatic inflammation. CT scan abdomen pelvis shows evidence of severe metastatic disease. MDM/plan: The synthesis of the patient's history, physical exam, labs images suggest severe metastatic cancer likely producing anemia of chronic disease. No obvious evidence of GI bleeding. Discussion was had with the patient remain on hospice or to revoke his hospice for proper emergency care and likely admission. Patient and family were alert and orient x 3 no capacity to make medical decisions and chose to remain on hospice and as such did not require any further intervention. Did give the patient 4 mg of morphine I did speak with his hospice care center who agreed to follow with him closely to reassess his needs. Patient was discharged stable condition. Discharge Plan Triage Chief Complaint: Abd Pain ED Provider: Roberta Dasilva Dx/Rx/DC Orders Clinical Impression: Metastatic cancer, Anemia, Hospice care patient Prescriptions: No Action pantoprazole [address] for susp in packet 40 mg PO DAILY Qty: 30 2RF Rx Instructions: mix with water and take daily tamsulosin 0.4 MG capsule 0.4 mg PO QHS Jardiance 10 mg tablet 10 mg PO DAILY Qty: 30 0RF furosemide 40 MG tablet 60 mg PO DAILY 30 Days Qty: 45 1RF metoprolol tartrate 50 mg tablet 100 mg PO BID 30 Days Qty: 120 1RF aspirin [Adult Low Dose Aspirin] 81 mg tablet,delayed release (DR/EC) 81 mg PO BID atorvastatin 80 mg tablet 80 mg PO QDAY Qty: 90 3RF ondansetron HCl 4 mg tablet 4 mg PO Q8H PRN (Reason: nausea and vomiting) Qty: 30 0RF Rx Instructions: take one tab prior to radiation and then as needed q8 hours isosorbide dinitrate 30 mg tablet 30 mg feeding tube BID Qty: 60 11RF Primary Care Provider: Gomez Nelson Referrals: Gomez Nelson DO [Primary Care Provider] - Activity Restrictions/Additional Instructions: Please call your hospice service to schedule any additional services. Disposition Disposition: Home, Self Care
--- OUTSIDE RECORDS SUMMARY | 2023-09-23 20:25 | XMS RPT_ITS | CCD ---
Author Name Unknown Address [address] [place] [address] Organization [facility] Care Team Providers Care Milk Powder Grinder Name Role Phone MORGAN De Paz, Delilah Gonzales Unavailable Unavailabl e MORGAN De Paz Phyllis M Unavailable Unavailabl e Medications Completed/Discontinued Medications Medication Drug Class(es) Dates Sig (Normalized) Sig (Original) amiodarone hydrochloride 200 mg oral tablet (4 sources) Antiarrhythmic Start: 10-06-2016 take 1 tablet by mouth once daily AMIODARONE HCL 200 MG TABS One tablet by mouth daily AMIODARONE HCL [id number] Izzy Guillaume Problems Active Problems Problem Classification Problem Date Documented Date Episodic/Chronic Aortic; peripheral; and visceral artery aneurysms (2 sources) Femoral false aneurysm; 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] Onset: 06-17-2016 06-17-2016 Chronic Cardiac dysrhythmias (4 sources) Paroxysmal atrial fibrillation; Translations: [Unspecified atrial flutter] Onset: 09-28-2016 09-28-2016 Chronic Coronary atherosclerosis and other heart disease (2 sources) Atherosclerotic heart disease of [place] coronary artery without angina pectoris; Translations: [Atherosclerotic heart disease of [place] coronary artery without angina pectoris] Onset: 06-17-2016 06-17-2016 Chronic Diabetes mellitus with complications (4 sources) Type II diabetes mellitus uncontrolled; Translations: [Type 2 diabetes mellitus with hyperglycemia] Onset: 10-27-2015 Resolved: 03-22-2016 10-27-2015 Chronic Essential hypertension (2 sources) Hypertensive disorder; Translations: [Essential (primary) hypertension] Onset: 04-02-2015 04-02-2015 Chronic Heart valve disorders (6 sources) Nonrheumatic aortic (valve) stenosis; Translations: [Aortic valve stenosis] Onset: 03-22-2016 04-15-2016 Chronic Other and ill-defined heart disease (2 sources) Left ventricular hypertrophy; Translations: [Cardiomegaly] Onset: 04-15-2016 04-15-2016 Chronic Other nutritional; endocrine; and metabolic disorders (4 sources) Dyslipidemia; Translations: [Obesity] Onset: 04-02-2015 09-29-2016 Chronic Unclassified (2 sources) Replacement of aortic valve ; 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] Onset: 09-29-2016 09-29-2016 Unclassified (2 sources) Screening for malignant neoplasm of colon ; Translations: [Encounter for screening for malignant neoplasm of colon] Onset: 04-02-2015 04-02-2015 Past or Other Problems Problem Classification Problem Date Documented Da te Episodic/Chronic Coronary atherosclerosis and other heart disease (2 sources) Presence of aortocoronary bypass graft; Translations: [Presence of aortocoronary bypass graft] Onset: 09-29-2016 09-29-2016 Episodic Diabetes mellitus without complication (2 sources) Impaired glucose tolerance; Translations: [Other abnormal glucose] Onset: 03-22-2016 03-22-2016 Episodic Heart valve disorders (4 sources) Systolic murmur; Translations: [Endocarditis, valve unspecified] Onset: 04-02-2015 Resolved: 03-22-2016 03-22-2016 Episodic Nonspecific chest pain (2 sources) Chest pain; Translations: [Chest pain, unspecified] Onset: 04-19-2016 04-19-2016 Episodic Other aftercare (2 sources) Other prison (current) drug therapy; Translations: [Other prison (current) drug therapy] Onset: 09-29-2016 09-29-2016 Episodic Other and unspecified benign neoplasm (2 sources) Lipoma (clinical); Translations: [Benign lipomatous neoplasm, unspecified] Onset: 04-02-2015 04-02-2015 Episodic Other circulatory disease (2 sources) Carotid bruit; Translations: [Other specified symptoms and signs involving the circulatory and respiratory systems] Onset: 04-19-2016 04-19-2016 Episodic Other lower respiratory disease (2 sources) Dyspnea on exertion; Translations: [Other forms of dyspnea] Onset: 04-19-2016 04-19-2016 Episodic Other skin disorders (2 sources) Actinic keratosis; Translations: [Actinic keratosis] Onset: 04-02-2015 04-02-2015 Episodic Phlebitis; thrombophlebitis and thromboembolism (4 sources) Deep venous thrombosis of lower extremity; Translations: [Acute embolism and thrombosis of unspecified deep veins of right lower extremity] Onset: 05-31-2016 Resolved: 06-17-2016 05-31-2016 Episodic Pleurisy; pneumothorax; pulmonary collapse (2 sources) Pleural effusion; Translations: [Pleural effusion in other conditions classified elsewhere] Onset: 09-29-2016 09-29-2016 Episodic Pneumonia (2 sources) Atypical pneumonia; Translations: [Pneumonia, unspecified organism] Onset: 11-19-2015 Resolved: 11-29-2015 11-19-2015 Episodic Unclassified (2 sources) Echocardiogram abnormal; Translations: [Abnormal findings on diagnostic imaging of heart and coronary circulation] Onset: 04-15-2016 04-15-2016 Episodic Results Test Name Value Interpretation Reference Range Facil ity Vital Signs Date Time Vital Sign Value Performing Clinician Deangelo salazar 05-11-2017 12:57-0400 BMI (Body Mass Index) 33.64 kg/m2 [facility] Work Phone: 05-11-2017 12:57-0400 BP Diastolic 70 mm[Hg] [facility]GAN [facility] Work Phone: 05-11-2017 12:57-0400 BP Systolic 134 mm[Hg] MORGAN [facility] Work Phone: 05-11-2017 12:57-0400 Height 171.45 cm MORGAN [facility] Work Phone: 05-11-2017 12:57-0400 Pulse (Heart Rate) 78 /min [facility] Work Phone: 05-11-2017 12:57-0400 Respiratory Rate 18 /min [facility] Work Phone: 05-11-2017 12:57-0400 Weight 98.88 kg MORGAN [facility] Work Phone: 11-08-2016 12:45-0500 BSA (Body Surface Area) 2.09 m2 [facility] Work Phone: 09-29-2016 13:43-0500 BP Diastolic 62 mm[Hg] [facility] Work Phone: 09-29-2016 13:43-0500 BP Systolic 128 mm[Hg] [facility] Work Phone: 09-29-2016 13:43-0500 Pulse (Heart Rate) 112 /min [facility] Work Phone: 03-22-2016 08:090400 Body Temperature 97.9 [degF] [facility] Work Phone: Procedures Date Procedure Procedure Detail Performing Clinician Start: 05-11-2017 End: 05-11-2017 BARBER Voss MD Work Phone: Start: 05-11-2017 End: 05-11-2017 Follow Up Appt 6 months Bud Voss MD Work Phone: Start: 11-24-2016 End: 11-24-2016 Electrocardiogram, complete Bud vela MD Work Phone: Start: 11-08-2016 End: 11-08-2016 *BMP Bud Voss MD Work Phone: Start: 11-08-2016 End: 11-24-2016 Chest x-ray Bud Voss MD Work Phone: Start: 11-08-2016 End: 11-08-2016 BARBER Voss MD Work Phone: Start: 11-08-2016 End: 11-08-2016 Electrocardiogram, complete Bud vela MD Work Phone: Start: 11-08-2016 End: 11-08-2016 Follow Up Appt 6 months Bud Voss MD Work Phone: Start: 11-08-2016 End: 11-09-2016 Referral to human resources district manager Bud Voss MD Work Phone: Start: 10-28-2016 End: 11-24-2016 Cardioversion Bud Voss MD Work Phone: Start: 10-14-2016 End: 10-14-2016 Electrocardiogram, complete Bud vela MD Work Phone: Start: 10-07-2016 End: 10-07-2016 Nurse, Teaching, Wound Check (no charge) Bud Voss MD Work Phone: Start: 10-06-2016 End: 10-07-2016 Electrocardiogram, complete Bud vela MD Work Phone: Start: 09-29-2016 End: 10-03-2016 *BMP Bud Voss MD Work Phone: Start: 09-29-2016 End: 10-03-2016 *Hepatic Function Panel Bud Voss MD Work Phone: Start: 09-29-2016 End: 09-29-2016 DJN Bud Voss MD Work Phone: Start: 09-29-2016 End: 10-14-2016 Echocardiography Bud Voss MD Work Phone: Start: 09-29-2016 End: 09-29-2016 Follow Up Appt 4 months Bud Voss MD Work Phone: Start: 09-29-2016 End: 10-03-2016 Lipid panel [AGGREGATE] Bud Voss MD Work Phone: Start: 09-28-2016 End: 09-29-2016 Electrocardiogram, complete Bud vela MD Work Phone: Start: 06-17-2016 End: 06-18-2016 Referral to thoracic surgeon Bud ochoa MD Work Phone: Start: 06-08-2016 End: 06-09-2016 Referral to vascular surgeon Bud ochoa MD Work Phone: Start: 05-31-2016 End: 05-31-2016 Nurse, Teaching, Wound Check (no charge) Bud Voss MD Work Phone: Start: 05-31-2016 End: 06-01-2016 Venous doppler Bud Voss MD Work Phone: Start: 05-18-2016 End: 05-19-2016 Referral to thoracic surgeon Bud ochoa MD Work Phone: Start: 04-19-2016 End: 04-26-2016 *BMP Bud Voss MD Work Phone: Start: 04-19-2016 End: 04-26-2016 *CBC with Differential Bud Voss MD Work Phone: Start: 04-19-2016 End: 04-27-2016 Carotid duplex Bud Voss MD Work Phone: Start: 04-19-2016 End: 04-27-2016 Chest x-ray Bud Voss MD Work Phone: Start: 04-19-2016 End: 04-26-2016 Coagulation factor induced.INR assay in platelet poor plasma Bud Voss MD Work Phone: Start: 04-19-2016 End: 04-19-2016 DJN Bud Voss MD Work Phone: Start: 04-19-2016 End: 04-19-2016 Electrocardiogram, complete Bud vela MD Work Phone: Start: 04-19-2016 End: 04-19-2016 Follow Up Appt 2 months Bud Voss MD Work Phone: Start: 04-19-2016 End: 05-18-2016 Left & Right Heart Cath Bud Voss MD Work Phone: Start: 04-19-2016 End: 05-18-2016 Transesophageal echocardiogram (GREGG) Bud Voss MD Work Phone: Start: 04-04-2016 End: 04-05-2016 Referral to human resources district manager Gomez Nelson DO Work Phone: Start: 03-22-2016 End: 04-27-2016 Doppler echo exam, heart Gomez Nelson DO Work Phone: Start: 01-18-2016 End: 03-17-2016 *CMP Complete Metabolic Panel Gomez de la fuente [facility] Work Phone: Start: 01-18-2016 End: 03-17-2016 *Microalbumin, Creatine Ratio, rand urine Gomez Nelson [facility] Work Phone: Start: 01-18-2016 End: 03-17-2016 HbA1c Gomez Nelson [facility] Work Phone: Start: 10-27-2015 End: 10-27-2015 HbA1c Gomez Nelson [facility] Work Phone: Plan of Treatment Date Care Activity Detail Author Start: 11-20-2017 End: 11-20-2017 Appointment Appointment [facility] Work Phone: Start: 05-11-2017 End: 05-11-2017 Appointment Appointment [facility] Work Phone: Start: 05-11-2017 End: 05-11-2017 Cardiac Rehab Card[facility] Re[facility] [address] [place], [address] [facility] Work Phone: Start: 05-11-2017 End: 05-11-2017 JOCELYNNN BARBER [facility] Work Phone: Start: 05-11-2017 End: 05-11-2017 Follow Up Appt 6 months Follow Up Appt 6 months [facility] Phone: Start: 11-24-2016 End: 11-24-2016 Electrocardiogram, complete EKG (In office) [facility] Work Phone: Start: 11-23-2016 End: 10-03-2016 *Hepatic Function Panel *Hepatic Function Panel [facility] Work Phone: Start: 11-23-2016 End: 10-03-2016 Lipid panel [AGGREGATE] *Lipid Profile CC PCP [facility] Work Phone: Start: 11-08-2016 End: 11-08-2016 *BMP *BMP [facility] Work Phone: Start: 11-08-2016 End: 01-27-2017 Cardiac Rehab Cardiac Rehab [facility] Work Phone: Start: 11-08-2016 End: 11-24-2016 Chest x-ray X-Ray, Chest, PA & Lateral [facility] Work Phone: Start: 11-08-2016 End: 11-08-2016 BARBER BLANDON [facility] Work Phone: Start: 11-08-2016 End: 11-08-2016 Electrocardiogram, complete EKG (In office) [facility] Work Phone: Start: 11-08-2016 End: 11-08-2016 Follow Up Appt 6 months Follow Up Appt 6 months [facility] Work Phone: Start: 10-28-2016 End: 10-28-2016 Cardioversion Cardioversion [facility] Work Phone: Start: 10-14-2016 End: 10-14-2016 Electrocardiogram, complete EKG (In office) [facility] Work Phone: Start: 10-06-2016 End: 10-07-2016 Electrocardiogram, complete EKG (In office) [facility] Work Phone: Start: 09-29-2016 End: 10-03-2016 *BMP *BMP [facility] Work Phone: Start: 09-29-2016 End: 10-03-2016 *Hepatic Function Panel *Hepatic Function Panel [facility] Work Phone: Start: 09-29-2016 End: 10-03-2016 Chest x-ray X-Ray, Chest, PA & Lateral [facility] Work Phone: Start: 09-29-2016 End: 09-29-2016 DJLuci CABEZASN [facility] Work Phone: Start: 09-29-2016 End: 09-29-2016 Echocardiography Echocardiogram (complete) [facility] Work Phone: Start: 09-29-2016 End: 09-29-2016 Follow Up Appt 4 months Follow Up Appt 4 months [facility] Work Phone: Start: 09-29-2016 End: 10-03-2016 Lipid panel [AGGREGATE] *Lipid Profile CC PCP [facility] Work Phone: Start: 09-28-2016 End: 09-29-2016 Electrocardiogram, complete EKG (In office) [facility] Work Phone: Start: 06-17-2016 End: 06-17-2016 Thoracic Surgery Referral Thoracic Surgery [facility], [address] [place] [address], [address] [facility] Work Phone: Start: 06-08-2016 End: 06-17-2016 Vascular Surgery Vascular Surgery [facility], [address], [place], [address] [facility] Work Phone: Start: 05-31-2016 End: 06-01-2016 Venous doppler Venous doppler [facility] Work Phone: Start: 05-18-2016 End: 05-18-2016 Thoracic Surgery Referral Thoracic Surgery [facility], [address] [place] [address], [address] [facility] Work Phone: Start: 04-19-2016 End: 04-26-2016 *BMP *BMP [facility] Work Phone: Start: 04-19-2016 End: 04-26-2016 *CBC with Differential *CBC with Differential [facility] Work Phone: Start: 04-19-2016 End: 04-19-2016 Carotid duplex Carotid duplex [facility] Work Phone: Start: 04-19-2016 End: 04-27-2016 Chest x-ray X-Ray, Chest, PA & Lateral [facility] Work Phone: Start: 04-19-2016 End: 04-26-2016 Coagulation factor induced.INR assay in platelet poor plasma *PT/INR [facility] Work Phone: Start: 04-19-2016 End: 04-19-2016 DJN [facility] Work Phone: Start: 04-19-2016 End: 04-19-2016 Electrocardiogram, complete EKG (In office) [facility] Work Phone: Start: 04-19-2016 End: 04-19-2016 Follow Up Appt 2 months Follow Up Appt 2 months [facility] Work Phone: Start: 04-19-2016 End: 04-19-2016 Left & Right Heart Cath Left & Right Heart Cath [facility] Work Phone: Start: 04-19-2016 End: 04-19-2016 Transesophageal echocardiogram (GREGG) Transesophageal echocardiogram (GREGG) [facility] Work Phone: Start: 04-04-2016 End: 04-12-2016 Cardiac Referral Cardiac Referral Wally Medina MD, [facility], [address] [facility] [address], [place], [address] [facility] Work Phone: Start: 03-22-2016 End: 04-27-2016 Doppler echo exam, heart Echo Doppler [facility] Work Phone: Start: 01-18-2016 End: 03-17-2016 *CMP Complete Metabolic Panel *CMP Complete Metabolic Panel [facility] Work Phone: Start: 01-18-2016 End: 03-17-2016 *Microalbumin, Creatine Ratio, rand urine *Microalbumin, Creatine Ratio, rand urine [facility] Work Phone: Start: 01-18-2016 End: 03-17-2016 HbA1c *HgA1C [facility] Work Phone: Start: 01-18-2016 End: 03-17-2016 Lipid panel [AGGREGATE] *Lipid Profile [facility] Work Phone: Patient Education [facility] Work Phone: Additional Source Comments FOR RECORDS PERTAINING TO PATIENTS WHO ARE OR HAVE BEEN ENROLLED IN A CHEMICAL DEPENDENCY/SUBSTANCEABUSE PROGRAM, SOME INFORMATION MAY BE OMITTED. This clinical summary was aggregated from multiple sources. Caution should be exercised in using it in the provision of clinical care. This summary normalizes information from multiple sources, and as a consequence, information in this document may materially change the coding, format and clinical context of patient data. In addition, data may be omitted in some cases. CLINICAL DECISIONS SHOULD BE BASED ON THE PRIMARY CLINICAL RECORDS. [facility]. provides no warranty or guarantee of the accuracy or completeness of information in this document.
[2023-09-23] MEDS: Ondansetron 4 MG/2 ML Vial IV (20:39)
[2023-09-23] MEDS: 0.9% Normal Saline (1000mL) 1,000 ML 150 ML IV (20:39)
[2023-09-23 20:48] LABS: Absolute Lymphocyte Count 0.43 X10^3/uL (0.83-4.51); Absolute Neutrophil Count 16.7 X10^3/uL (2.0-7.7); Basophil# 0.08 X10^3/uL; Basophil% 0.4 % (0-1); Eosinophil# 0.32 X10^3/uL; Eosinophils% 1.7 % (0-5); Hematocrit 23.5 % (40-54); Hemoglobin 6.6 g/dL (13.0-16.5); Lymphocyte # 0.43 X10^3/ul (0.83-4.51); Lymphocyte % 2.3 % (19-41); Mean Corp Hgb Conc 28.1 g/dL (32-36); Mean Corpuscular Hgb 21.4 pg (27.0-32.0); Mean Corpuscular Volume 76.1 fL (80-94); Mean Platelet Vol. 10.4 fl (6.2-12.0); Monocyte# 0.91 X10^3/uL; Monocyte% 4.9 % (0-10); NRBC Flagged by Analyzer 0 % (0-5); POSITIVE DIFFERENTIAL YES; Platelet Count 248 K/mm3 (150-450); RBC Distribution Width CV 17.2 % (11.6-14.6); RBC Distribution Width SD 46.9 fl (35.1-43.9); Red Blood Count 3.09 M/mm3 (4.6-6.2); White Blood Count 18.6 K/mm3 (4.4-11.0)
[2023-09-23 20:51] LABS: Differential Indicated SCAN CRITERIA MET
[2023-09-23 21:12] LABS: AST(SGOT) 21 U/L (15-37); Alanine Aminotransfer ALT/SGPT 21 U/L (16-61); Albumin, Serum 2.1 g/dL (3.2-5.0); Alkaline Phosphatase 134 U/L (45-117); Anion Gap 4 (5-15); BUN 75 mg/dL (7-18); BUN/Creat Ratio 41.9 RATIO (10-20); Chloride 101 mmol/L (98-107); Creatinine, Serum 1.79 mg/dL (0.70-1.30); EST Glomerular Filtration Rate 39 mL/min (>60); Est Glom Filt Rate - Afr Amer 47 mL/min (>60); Estimated Creatinine Clearance 31.82 ml/min; Globulin 4.8 g/dL (2.2-4.2); Glucose 122 mg/dL (74-106); Lipase < 10 U/L (13-75); Potassium 5.4 mmol/L (3.5-5.1); Protein, Total 6.9 g/dL (6.4-8.2); Sodium Level 137 mmol/L (136-145)
[2023-09-23 22:00] VITALS: BP 114/40; PULSE 112; RESP 20; O2SAT 100
[2023-09-24] VITALS: BP 118/56; PULSE 130; RESP 22; O2SAT 100
[2023-09-24] MEDS: Morphine 4 MG/ML Syringe IV (00:42)
[2023-09-24 00:46] VITALS: BP 122/61; PULSE 123; RESP 22; O2SAT 100
== END 2023-09-24 01:00 | disposition home or self-care (01) ==
PROVIDERS: Emergency Provider Emergency Medicine; PCP Family Medicine; Visit Provider Emergency Medicine
DX: C78.7 Secondary malignant neoplasm of liver and intrahepatic bile duct (principal); N18.30 Chronic kidney disease, stage 3 unspecified; D64.9 Anemia, unspecified; I25.10 Atherosclerotic heart disease of native coronary artery without angina pectoris; Z87.891 Personal history of nicotine dependence
CPT/HCPCS: 74177; 80048; 80076; 82271; 83690; 85025; 96374; 96375; 99282; J7030; Q9967; A4216; J2405